=== PATIENT | female | born 1985 | race Caucasian/White ===

== ENCOUNTER 2024-10-21 10:38 | Outpatient (CLI) | payer OTHER, SELFPAY ==
--- OUTSIDE RECORDS SUMMARY | 2024-10-21 10:46 | XMS_ITS | Encounter Summary ---
Author Organization [facility] Address 

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
--- OUTSIDE RECORDS SUMMARY | 2024-10-21 10:46 | XMS_ITS | Referral Summary ---
Author Organization [facility] Address [address] [place] [address] Care Team Providers Care Medical Engineer Name Role Phone Essence Wren MD Unavailable [phone] Mary Guillen MD Primary Care Provider Encounters Date Type Department Care Team Description 10/20/2024 Telephone [facility] Endocrinology at [address] [place] [phone] Tara Blunt LPN 10/19/2024 Telephone [facility] Medical [facility] Endocrinology at [address] [place] [phone] Keegan Gallegos MD Med Management ([place]) 10/16/2024 1:30 PM CDT Office Visit [facility] Endocrinology at [address] [place] [phone] Keegan Gallegos MD 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 10/07/2024 12:30 PM CDT Telemedicine [facility] [address] [address] Francisca Mcfarland NP Generalized anxiety disorder (Primary Dx); Class 1 obesity due to excess calories without serious comorbidity with body mass index (BMI) of 34.0 to 34.9 in adult; Attention deficit disorder (ADD) without hyperactivity 09/28/2024 Results Follow-Up [facility] [address] [facility] [address] [place] [address] Francisca Mcfarland NP Prealbumin 09/28/2024 10:40 AM CDT Lab [address] [place] [address] Low serum prealbumin 09/25/2024 Orders Only [address] [place] [address] Francisca Mcfarland NP Low serum prealbumin (Primary Dx) 09/23/2024 9:30 AM CDT Telemedicine [facility] Orthopaedic Surgery [address] [place] [address] [address] [place] [address] Low serum prealbumin [R79.89] (Primary Dx); Class 1 obesity due to excess calories without serious comorbidity with body mass index (BMI) of 34.0 to 34.9 in adult [E66.811, E66.09, Z68.34] 09/18/2024 Orders Only [place] [id number] [facility] [address] [place] [address] Francisca Mcfarland NP Low serum prealbumin (Primary Dx); Class 2 obesity due to excess calories without serious comorbidity with body mass index (BMI) of 35.0 to 35.9 in adult 09/17/2024 Results Follow-Up [place] [id number] [facility] [address] [place] [address] Francisca Mcfarland NP Prealbumin, T4, free, T3, free, TSH 09/17/2024 1:50 PM CDT Lab [address] [place] [address] Low serum prealbumin; Acquired hypothyroidism 09/15/2024 Orders Only [facility] [address] [facility] [address] [place] [address] Francisca Mcfarland NP Low serum prealbumin (Primary Dx) 09/15/20[address] Orders Only [address] [place] [address] Francisca Mcfarland NP 09/02/2024 Results Follow-Up [address] [place] [address] Francisca Mcfarland NP Prealbumin, T4, free, TSH, T3, free 09/02/[address] [place] [address] Francisca Mcfarland NP Acquired hypothyroidism (Primary Dx) 08/31/2024 3:10 PM CDT Lab [address] [place] [address] Low serum prealbumin; Hypothyroidism, unspecified type 08/28/[address] [place] [address] Francisca Mcfarland NP Low serum prealbumin (Primary Dx) 08/23/2024 Results Follow-Up [address] [phone] Mary Guillen MD Stress Treadmill Test 08/21/2024 Results Follow-Up [address] [place] [address] Mary Guillen MD Vitamin B12, Ferritin, Iron profile w/ IBC, Additional followed-up results: 6 08/21/2024 11:15 AM CDT Lab [address] [place] [address] Vitamin B12 deficiency; Vitamin D deficiency; Preoperative clearance 08/21/2024 Orders Only [place] [id number] [facility] [address] [place] [address] Francisca Mcfarland NP Preoperative clearance (Primary Dx); Vitamin D deficiency; Vitamin B12 deficiency 08/21/2024 11:30 AM CDT Ancillary Procedure [facility] Cardiology [address] [facility] [address] [place] [address] Other chest pain 08/20/2024 Telephone [place] [id number] [facility] [address] [place] [phone] Mary Guillen MD FLMA 08/17/2024 3:00 PM CDT Office Visit [place] [id number] [facility] [address] [place] [address] Francisca Mcfarland NP Other chest pain (Primary Dx); Acquired hypothyroidism; Class 2 obesity due to excess calories without serious comorbidity with body mass index (BMI) of 35.0 to 35.9 in adult; H/O gastric sleeve 08/13/2024 Nurse Triage [place] [id number] [facility] [address] [place] [phone] Mary Guillen MD from Last 3 Months Allergies Active Allergy Reactions Criticality Noted Date Comments Azithromycin Rash Medium 01/14/2015 Codeine Other (See comments) Low 10/10/2009 Reaction: Insomnia, , Reaction: Insomnia, Hyperactive,couldnt sleep Causes insomnia and hyperactivity Latex Rash Medium 08/28/2011 Itchy , bumps , , swollen tongue Only to certain tapes Vancomycin Hives High 07/09/2016 Medications albuterol HFA (Ventolin HFA) 90 mcg/actuation inhalerIndication s:Moderate asthma, unspecified whether complicated, unspecified whether persistent Inhale 2 puffs every 4 (four) hours as needed for wheezing or shortness of breath 1 each 2 022 Active Additional Information Patient not taking.Reported on 02/14/2024 lisdexamfetamine (VYVANSE) 50 mg capsule Take 1 capsule (50 mg total) by mouth every morning 30 capsule 025 Active hydrOXYzine (ATARAX) 25 mg tablet Take 1 tablet (25 mg total) by mouth 2 (two) times a day as needed for itching 30 tablet 025 Active Synthroid 137 mcg tabletIndications :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 Take 1 tablet (137 mcg total) by mouth daily 30 tablet 6 025 Active Zepbound 15 mg/0.5 mL pen injector ADMINISTER 15 MG UNDER THE SKIN EVERY 7 DAYS 2 mL 025 Active levothyroxine (SYNTHROID) 125 mcg tabletIndications :Acquired hypothyroidism Take 1 tablet (125 mcg total) 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 Recent TFTs showed elevated TSH of 4.9 with normal free T3 and free T4. She is on levothyroxine 125 mcg daily. Plan 1. Will change levothyroxine to Synthroid 137 mcg daily 2. TSH in 2 months 3. Discussed TSH goal of 0.3-2.5. 4. Discussed medication adherence and absorption issues.Advised taking Synthroid three hours after the last meal or first thing in the morning, avoiding concurrent intake with calcium, multivitamins, or iron. 5. Advised to call ASP 6. All her questions were addressed. 7. Follow-up in 6 months Other chest pain 08/17/2024 Assessment & Plan (08/17/2024 8:58 PM CDT): She experiences intermittent left-sided chest pain, initially sharp with swallowing and now dull with deep breathing. There is no exertional pain, palpitations, or dyspnea. The differential diagnosis includes acid reflux, pleurisy, cardiac issues, and muscular pain. Acid reflux is considered due to Zepbound use, despite atypical symptoms. Pleurisy is unlikely without a recent viral infection. Cardiac issues are considered due to family history but are low risk without exertional symptoms. Muscular pain is considered due to recent back pain and a popping sensation. An EKG will be ordered to rule out cardiac issues. EKG shows no acute findings. Will get Stress test given also going for surgery in August possibly. recommend [id number] famotidine (Pepcid) for two weeks for potential acid reflux. Consider a muscular origin if symptoms persist despite ERRONEOUS ENCOUNTER--DISREGARD 05/25/2024 Severe episode of recurrent major depressive disorder, without psychotic features 07/10/2022 Assessment & Plan (02/07/2023 8:29 AM CDT): Doing much better with this as she has changed jobs Assessment & Plan (07/10/2022 3:12 PM CHIEF EXECUTIVE OFFICER): We discussed this at length. We encouraged her significantly to start therapy. She is an upcoming appointment in 2 weeks. Discussed to follow therapy at least once or twice a week. Discussed the role of medications and improving the serotonin and dopamine. Discussed using sertraline 25 mg a day with weekly follow-ups with us through [facility] about her progress. Discussed any worsening symptoms do notify us as soon as possible. Follow-up with us in 1 month. Recommend intermittent FMLA to meet with our appointments as well as the appointments with the therapist. Highly recommend in person visits at this current time. Routine physical examination 05/08/2022 Assessment & Plan (05/08/2022 3:34 PM CHIEF EXECUTIVE OFFICER): Discussed vaccinations. Discussed diet and exercise changes. Complimented her on exercising at least 3 times a week. She is currently . Attention deficit disorder (ADD) without hyperac tivity 05/08/2022 Assessment & Plan (10/07/2024 9:12 PM CDT): Doing well on vyvanse Assessment & Plan (05/27/2024 3:23 PM CHIEF EXECUTIVE OFFICER): Has been doing well on Vyvanse. Would continue the same dosage. Assessment & Plan (01/29/2024 2:58 PM CDT): Has done well on Vyvanse 50 mg. States has noticed little bit of numbness and tingling on the face at times after she takes it. The symptoms lasted a few seconds and does resolve. States otherwise tolerating it well. States has been having trouble with sleeping at night. Has been using melatonin. Continue Vyvanse at this time. Neuro exam is stable. Start with blood work. If the symptoms worsen or persist to notify. Assessment & Plan (01/03/2024 1:30 PM CDT): Has done well on Vyvanse 50 mg. States stopped taking it for a little while as she was getting frustrated with the inability to locate the medication daily. States has noticed significant difference when she does not take the medication. We would like to resume it. Close follow-up in 3 months. Assessment & Plan (04/03/2023 9:18 PM CHIEF EXECUTIVE OFFICER): Currently on Vyvanse 50 mg daily. Has been tolerating it well. We discussed make an appointment in the office in next couple of months for follow-up. Needs a blood pressure check. Assessment & Plan (02/07/2023 8:32 AM CDT): We d/w vyvanse and start at 30 mg a day We d.w not to consider with these meds Assessment & Plan (05/08/2022 3:36 PM CHIEF EXECUTIVE OFFICER): Predominantly poor focus. Definitely scored high on the ADD screen. Lot of anxiety by the end of the day and unable to finish tasks noted which is adding to her anxiety and low self-esteem. Discussed working with a counselor but also discussed considering ADD medicines once she is done before we pursue medications for anxiety and depression. Would recommend finding out the medicine her brother is on as well. H/O gastric sleeve 05/16/2021 Overview (05/16/2021): -2018 Assessment & Plan (01/29/2024 2:56 PM CDT): We will start with blood work and getting vitamin B12 level. She was currently was started on zepbound has losing weight Assessment & Plan (04/03/2023 9:19 PM CHIEF EXECUTIVE OFFICER): Continue with vitamins continue with weight loss efforts Assessment & Plan (02/07/2023 8:31 AM CDT): Unfortunately gained weight and we d.w wegovy and use of wegovy for weight management Assessment & Plan (05/08/2022 3:35 PM CHIEF EXECUTIVE OFFICER): She has lost about 100 lb from her procedure time. Does notice some redundant skin on the arms and also abdomen. Anxiety with depression 03/08/2021 Overview (05/16/2021): -no meds Assessment & Plan (01/03/2024 1:31 PM CDT): Currently not on any medication. She does report that her mood has overall been stable. History of PCOS 03/08/2021 Overview (05/16/2021): -stopped metformin -Early GCT at 16wks Assessment & Plan (05/08/2022 3:35 PM CHIEF EXECUTIVE OFFICER): Would actually recommend checking insulin levels. Dysthymia 08/26/2020 Assessment & Plan (08/26/2020 6:51 AM CDT): JUANITA and depression are likely barriers to change. She is not living with the father of her child and is simultaneously trying to conceive. She has tried multiple medications in the past but notes that she has never been consistent with any of them. Counseling advised. Will continue to discuss starting medication in the future, but for now restarting her thyroid medications is of the utmost priority. Fatigue 08/26/2020 Polycystic ovarian syndrome 08/26/2020 Assessment & Plan (01/29/2024 2:57 PM CDT): Continue metformin and zepbound Assessment & Plan (01/03/2024 1:30 PM CDT): Continue metformin. Will also be starting zepbound. Assessment & Plan (02/07/2023 8:30 AM CDT): Currently not taking metformin and we d.w holding it off and as she is not trying to conceive we are going to hold the metformin Assessment & Plan (03/08/2021 4:59 PM CDT): Restart metformin and will continue to focus on weight loss/ diet/ exercise. Assessment & Plan (08/26/2020 6:50 AM CDT): Discussed important of dietary and lifestyle modification to mitigate extent of symptoms related to this condition. While this certainly makes it more difficult to lose weight, there are multiple changes that can be made, and this includes a drastic change in routines and priorities. We discussed that this would likely improve her chances to conceive again if that is her goal. Continue metformin. Class 2 obesity due to exces s calories without serious comorbidity with body mass index (BMI) of 35.0 to 35.9 in adult 08/26/2020 Overview (02/09/2022): -Early GCT -Growth US at 28wks--if normal then 36wks -NST weekly at 34wks Assessment & Plan (10/07/2024 9:13 PM CDT): BMI follow up includes: nutritional counseling and exercise as tolerated. Assessment & Plan (08/26/2024 2:28 PM CDT): Currently on zepbound. Doing very well on the medication. Has lost over 50 lb. Due to the weight loss has noticed some loose skin. Being followed by surgeon. Plan is for surgery Continue current dosage. Continue with diet and exercise Assessment & Plan (05/27/2024 3:23 PM CHIEF EXECUTIVE OFFICER): Currently on zepbound. Doing very well on the medication. Continue current dosage. Continue with diet and exercise. Assessment & Plan (01/29/2024 2:57 PM CDT): Congratulated on weight loss. Has been losing weight on zepbound 2.5 mg. States will be starting the higher dose of 5 mg this week. We discussed continuing metformin at this time. Continue working on diet and exercise. Assessment & Plan (01/03/2024 1:29 PM CDT): We discussed this in detail. She will be starting up on 2.5 mg once a week. Side effects of the medication reviewed. Discussed that every 4 weeks we would titrate the dosage up. She verbalizes understanding. We discussed importance of diet and exercise. Continue metformin at this time. I would like for her to check it in 3 months with how she is doing on the medication. She verbalizes understanding. Assessment & Plan (04/03/2023 9:18 PM CHIEF EXECUTIVE OFFICER): Has been taking once a week. Has been tolerating it well. Being followed by weight loss clinic. States would like to try Mounjaro that is recently weight loss. Discussed I do not believe the prescription is available have overall sending it to the pharmacy to see if available. At this time would recommend continuing Wegovy 0.5 mg once a week. I encouraged her to make an appointment in couple months for follow-up in the office Assessment & Plan (02/07/2023 8:27 AM CDT): Has done s/p gastric sleeve .BMI Follow-up includes: nutrition counseling. We d/w wegovy and we d.w pros and cons Assessment & Plan (07/10/2022 3:12 PM CHIEF EXECUTIVE OFFICER): .BMI Follow-up includes: nutrition counseling. Assessment & Plan (05/08/2022 3:34 PM CHIEF EXECUTIVE OFFICER): BMI discussed she is post gastric sleeve done in 2018 would be a good candidate for semaglutide but at this current time would start with metformin and dietary changes. Will wait on; diet at this current time. Assessment & Plan (08/26/2020 6:49 AM CDT): Multiple barriers to change were addressed. We will start with phentermine/ topiramate, however a shift in lifestyle is essential. Generalized anxiety disorder 01/26/2019 Assessment & Plan (10/07/2024 9:11 PM CDT): We discussed this is in detail. She is conflicted about the medication. States she did discuss with her brother regards to the medication he is on. States she believes that he has been on wellbutrin and xanax as needed. However she does not want put pursue medication. Did discuss with pt that based on our discussion today I do feel she would benefit from SSRI to help with anxiety. Wellbutrin can worsen anxiety at higher dose. Do not necessiarly recommend xanax at this time. Did discuss we can try hydroxyzine as needed. She is in agreement with hydroxyzine as needed. She will let me know about which medication her brother is on after discussing with him again and let me know. She is also concerned that due to her anxiety she has been struggling at work as well. She states she will seek to see psychologist. Again it was emphasized that she would benefit from starting medicatio. She will consider and let me know. Assessment & Plan (01/26/2019 3:27 AM CDT): -Anxiety is worsening -JUANITA-7 score: 13 -Start celexa -Counseled on anxiety reduction strategies including exercise, reducing caffeine intake,journal writing, leisure activities, yoga, deep breathing and music. Fu in 3-4 weeks S/P section 06/28/2016 Overview (02/09/2022): -2018 for AOD at 4cm after IOL -Desires repeat at 39wks Spotting affecting in first trimester 12/16/2015 Abnormal Pap smear of cervix 02/08/2015 Overview (02/09/2022): 12/2014: LGSIL 01/2015: ALICE 1 11/2015: LGSIL Elevated fasting insulin level with normal gluco se 10/27/2014 Resolved Problems Problem Noted Date Diagnosed Date Resolved Date with 39 completed weeks gestation 11/27/2021 05/08/2022 History of wound infection 05/16/2021 1 07/09/2021 Overview (05/16/2021): -dx with chorio during delivery--received triples -presented POD#6 after with wound drainage, fevers and leukocytosis. Zosyn-->vanc (Hives)-->clindamycin-->d/c home with keflex and flagyl -Plan for scheduled repeat at 39wks Mild persistent asthma with exacerbation 03/04/2019 05/16/2021 Assessment & Plan (03/04/2019 4:34 AM CDT): Asthma exacerbation Triggered by sinus infection Start prednisone and continue albuterol If symptoms worsen or fail to improve recommend follow up in office. Maxillary sinusitis 03/04/2019 08/27/19 21 Assessment & Plan (03/04/2019 4:35 AM CDT): Sinus symptoms > 1 week with purulent drainage Likely bacterial Start Augmentin If symptoms worsen or fail to improve recommend follow up in office. Current moderate episode of major depressive disorder without prior episode 01/26/2019 Assessment & Plan (01/26/2019 3:27 AM CDT): -Depression is worsening PHQ9 :12 -Start celexa -Discussed depression reducing techniques including exercise, eating healthy, relaxation, leisure activities, aim for 8 hours of sleep, challenge negative thinking, yoga. I spent a total of 60 Minutes with the patient with more than 50% of the visit spent counseling patient on depression and anxiety management, treatment options for depression anxiety, benefits and side effects of medication, benefits of therapy, importance of incorporating self-care regimen into routine, answered questions, suicide precautions, coordinating care. Anxiety 01/26/2019 05/16/2021 Overview (05/16/2021): -no meds BMI 39.0-39.9,adult 01/26/2019 03/08/20 Assessment & Plan (01/26/2019 3:29 AM CDT): BMI not improving. Reinforced concepts of healthy dietary habits and exercise at least 30 minutes 5 days a week. Sensory deficit, right 01/07/201905/08 Post-op pain 08/20/2017 05/08/2022 Post-operative nausea and vomiting 08/20/2017 05/08/2022 Eczema 08/19/2017 05/08/2022 , supervision, high-risk 11/25/2015 05/08/2022 Overview (02/09/2022): Morbid obesity Hypothyroidism PCOS (metformin) Acquired hypothyroidism 10/03/201309/19 Overview (02/09/2022): -08/2020- TSH 27, T4 0.8--armour thyroid -03/2021- TSH 11, T4 1.1--switched to synthroid 50mcg daily -repeat TSH q month Assessment & Plan (08/17/2024 8:59 PM CDT): Her thyroid disorder is managed with levothyroxine. She reports poor adherence to her medication regimen and plans to improve adherence before her upcoming endocrinology appointment. Refill the levothyroxine prescription and advise regular medication adherence, especially before the endocrinology appointment. Assessment & Plan (01/29/2024 2:56 PM CDT): Continue levothyroxine. Repeat TSH. Assessment & Plan (01/03/2024 1:30 PM CDT): Continue levothyroxine Assessment & Plan (02/07/2023 8:32 AM CDT): Cont levothyroxine Assessment & Plan (05/08/2022 3:35 PM CHIEF EXECUTIVE OFFICER): Last thyroid up testing was done in March and doses has been increased to 150 mcg of levothyroxine would repeat blood work in another 8 weeks along with antibodies to rule out Graves disease. Discussed importance of taking the medicine on an empty stomach Assessment & Plan (03/08/2021 4:57 PM CDT): TSH was over 27 earlier this year, and she was switched to armour, which was helpful to reduce hair loss, but she has not taken it consistently for several months and has not had any follow up. We discussed today the importance of taking this daily, and I have placed an order for thyroid labwork for her to recheck in 4-6 weeks. Assessment & Plan (08/26/2020 6:47 AM CDT): I am particularly concerned about her noncompliance with medications, particularly since she has already had bariatric surgery and now is gaining weight, however she desires to become as well. Checking thyroid levels today, and we will restart thyroid meds. She is interested in trying armour instead of levothyroxine, and I am amenable to this. Assessment & Plan (01/26/2019 3:28 AM CDT): Currently stable and aymptomatic without any evidence of endocrine related symptoms. No adjustments need made and will continue levothyroxine at current dose. Thyroid studies reviewed and do not need to be repeated at this time. Will continue to monitor closely. Asthma 10/03/2013 05/08/2022 Overview (05/16/2021): -albuterol as needed -well controlled Assessment & Plan (08/26/2020 6:52 AM CDT): Stable. Uses albuterol PRN Biliary colic 08/30/2011 05/08/2022 Immunizations Immunization Administration Dates Next Due Hep B, Adolescent or Pediatric 01/03/2000,1999 Influenza, Quadrivalent, Spl it, Preservative Free, Intramuscular 07/30/2016,02/03/2016,04/01/2015 Influenza, Trivalent, IM (MDV) 02/17/2018,2016 Influenza, Unspecified 04/01/2023(Deferr ed: Patient Refused),02/17/2023(Deferred: Patient Refused),02/18/2020,02/17/2019, 018 MMR 12/10/2014,11/10/2014 PPD TEST 11/10/2014,10/26/2014 Tdap 09/25/2021,10/18/2009 Varicella 12/10/2014,11/10/2014 Varicella Zoster Immune Globulin 11/10/2014 Social History Tobacco Use Types Packs/Day Years Used Date Smoking Tobacco: Never Smokeless Tobacco: Never Alcohol Use Standard Drinks/Week Comments No 0 (1 standard drink = 0.6 oz pur e alcohol) AUDIT-C Answer Date Recorded Q1: How often do you have a drink containing alc ohol? Never 01/03/2024 Average Number of Drinks Not on file 024 Frequency of Binge Drinking Not on file 12/18 PHQ-2 Answer Date Recorded PHQ-2 Total Score (If total score is 3 or more points, staff should administer the PHQ-9) 0 10/16/2024 Bruneau Depression Scale Answer Date Recorded Br[place] Depression Scale Total 2 11/29/2021 The thought of harming myself has occurred to me . Never 11/29/2021 Comments No Sex and Gender Information Value Date Recorded Sex Assigned at Not on file Legal Sex Female 11:39 PM CHIEF EXECUTIVE OFFICER Gender Identity Female 03/08/2021 3:50 PM CDT Sexual Orientation Straight 03/08/2021 3: 50 PM CDT Last Filed Vital Signs Vital Sign Reading Time Taken Comments Blood Pressure 112/70 10/16/2024 1:17 PM CDT Pulse 72 10/16/2024 1:17 PM CDT Temperature 36.7 C (98 F) 10/16/2024 1:17 PM CDT Respiratory Rate 14 10/16/2024 1:17 PM CDT Oxygen Saturation 98% 08/17/2024 3:07 PM CDT Inhaled Oxygen Concentration - - Weight 94.8 kg (209 lb) 10/16/2024 1:17 PM CDT Height 165 cm (5' 4.96) 10/16/2024 1:17 PM CDT Body Mass Index 34.82 10/16/2024 1:17 PM CDT Plan of Treatment Not on file Medical Devices Implanted Type Area Energy Director Device Identifier Shelf Expiration Date Model / Serial / Lot ChangeMob Seprafilm 6x5in Barrier Adhesion Sterile Disposable Latex Free [id number] - [id number] Implanted:Qty: 1 on 11/27/2021 by Essence Wren MD at [facility] N/A: Abdomen SchraderPownce Gera [id number] 01/20/2024 [id number] / / [id number] Procedures Procedure Name Priority Date/Time Associated Diagnosis Comments PREALBUMIN Routine 09/28/2024 10:43 AM CDT Low serum prealbumin TSH Routine 09/17/2024 1:53 PM CDT Acquired hypothyroidism T3, FREE Routine 09/17/2024 1:53 PM CDT Acquired hypothyroidism T4, FREE Routine 09/17/2024 1:53 PM CDT Acquired hypothyroidism PREALBUMIN Routine 09/17/2024 1:53 PM CDT Low serum prealbumin T3, FREE Routine 08/31/2024 3:10 PM CDT Low serum prealbumin TSH Routine 08/31/2024 3:10 PM CDT Low serum prealbumin T4, FREE Routine 08/31/2024 3:10 PM CDT Low serum prealbumin PREALBUMIN Routine 08/31/2024 3:10 PM CDT Low serum prealbumin STRESS TEST ONLY TREADMILL Routine 08/21/2024 12:15 PM CDT Other chest pain EGFR Routine 08/21/2024 11:19 AM CDT Preoperative clearance DIFFERENTIAL AUTO Routine 08/21/2024 11: 19 AM CDT Preoperative clearance CBC WITH AUTO DIFFERENTIAL Routine 08/21/2024 11:19 AM CDT Preoperative clearance COMPREHENSIVE METABOLIC PANEL Routine 08/21/2024 11:19 AM CDT Preoperative clearance PREALBUMIN Routine 08/21/2024 11:19 AM CDT Preoperative clearance VITAMIN D 25 HYDROXY Routine 08/21/2024 11:19 AM CDT Vitamin D deficiency IRON PROFILE W/ IBC Routine 08/21/2024 1 1:19 AM CDT Vitamin B12 deficiency FERRITIN Routine 08/21/2024 11:19 AM CDT Vitamin B12 deficiency VITAMIN B12 Routine 08/21/2024 11:19 AM CDT Vitamin B12 deficiency ECG 12-LEAD Routine 08/17/2024 9:00 PM CDT Other chest pain HIGH RISK HPV DNA DETECTION WITH GENOTYPING Routine 01/23/2023 9:48 AM CDT Encounter for well woman exam with routine gynecological exam HEPATITIS C ANTIBODY Routine 05/17/2021 12:21 PM CHIEF EXECUTIVE OFFICER care, subsequent in first trimester from Last 3 Months or Most Recently Relevant to Health Maintenance Results * (ABNORMAL) Prealbumin (09/28/2024 10:43 AM CDT) Prealbumin 13.9(L) 20.0 - 40.0 mg/dL Blood 09/28/2024 10:4 3 AM CDT 09/28/2024 1:56 PM CDT us Francisca Mcfarland NP LAB BLOOD ORDERABLES Final Re sult [facility] [address] [place] [address] * T3, free (09/17/2024 1:53 PM CDT) Pathologist [facility] Free T3 2.8 2.0 - 4.4 pg/mL Blood 09/17/2024 1:53 PM CDT 09/17/2024 3:55 PM CDT Francisca Mcfarland NP LAB BLOOD ORDERABLES Final Re sult Performing Organization Address [facility] Co de Phone Number [facility] [address] [facility] [place] [address] * (ABNORMAL) TSH (09/17/2024 1:53 PM CDT) [facility] Thyroid Stimulating Hormone 4.96(H) 0.30 - 4.20 mcIUnit/mL Blood 09/17/2024 1:53 PM CDT 09/17/2024 3:55 PM CDT Francisca Mcfarland NP LAB BLOOD ORDERABLES Final Re sult Performing Organization Address [facility] Co de Phone Number [facility] [address] [facility] [employer] [place], [place] [id number] * T4, free (09/17/2024 1:53 PM CDT) [facility] Free T4 1.29 0.90 - 1.70 ng/dL Blood 09/17/2024 1:53 PM CDT 09/17/2024 3:55 PM CDT Francisca Mcfarland NP LAB BLOOD ORDERABLES Final Re sult Performing Organization Address [facility] Co de Phone Number [facility] [address] [facility] [place] [address] * (ABNORMAL) Prealbumin (09/17/2024 1:53 PM CDT) [facility] Prealbumin 13.4(L) 20.0 - 40.0 mg/dL Blood 09/17/2024 1:53 PM CDT 09/17/2024 3:55 PM CDT Francisca Mcfarland NP LAB BLOOD ORDERABLES Final Re sult Performing Organization Address City/[facility]/ZIP Co de Phone Number [facility] [address] [facility] [place] [address] * T3, free (08/31/2024 3:10 PM CDT) Pathologist [facility] Free T3 2.9 2.0 - 4.4 pg/mL Blood 08/31/2024 3:10 PM CDT 08/31/2024 6:56 PM CDT Francisca Mcfarland NP LAB BLOOD ORDERABLES Final Re sult Performing Organization Address [facility] Co de Phone Number [facility] [address] [facility] [place] [address] * TSH (08/31/2024 3:10 PM CDT) Pathologist [facility] Thyroid Stimulating Hormone 3.99 0.30 - 4.20 mcIUnit/mL Blood 08/31/2024 3:10 PM CDT 08/31/2024 6:56 PM CDT Francisca Mcfarland NP LAB BLOOD ORDERABLES Final Re sult Performing Organization Address [facility] Co de Phone Number [facility] [address] [facility] [place] [address] * T4, free (08/31/2024 3:10 PM CDT) Pathologist [facility] Free T4 1.18 0.90 - 1.70 ng/dL Blood 08/31/2024 3:10 PM CDT 08/31/2024 6:56 PM CDT Francisca Mcfarland GREEN ENERGY MARKETING ANALYST LAB BLOOD ORDERABLES Final Re sult Performing Organization Address [facility] Co de Phone Number [facility] [address] [facility] [place] [address] * (ABNORMAL) Prealbumin (08/31/2024 3:10 PM CDT) Prealbumin 10.8(L) 20.0 - 40.0 mg/dL Blood 08/31/2024 3:10 PM CDT 08/31/2024 6:56 PM CDT Francisca Mcfarland GREEN ENERGY MARKETING ANALYST LAB BLOOD ORDERABLES Final Re sult Performing Organization Address [facility] de Phone Number DRE [facility] [address] [facility] [place] [address] * Stress Treadmill Test (08/21/2024 12:15 PM CDT) Anatomical Region Laterality Modality Nuclear Medicine 08/21/2024 11:3 0 AM CDT Narrative 08/22/2024 1:33 PM CDT EXERCISE STRESS Patient Name: MELL NOBLES L : 1985 Study Date: 08/21/2024 11:30:00 AM Gender: F Tech: Brian Simmons RN Ref Provider: FRANCISCA MCFARLAND Height(Cm): 165 BSA: 2.11 Weight(Kg): 97 Order Provider: FRANCISCA MCFARLAND PROCEDURES: Stress Report: Treadmill stress Exam. INDICATIONS: R07.89 Other chest pain. FINDINGS: Performed By: Brian Simmons RN. Krista Ruiz [facility]. Procedure Data: Protocol - Dany Protocol. Exercise Time: 08:57 Resting HR 96 bpm Peak HR: 190 bpm Predicted Maximal HR 184 bpm Target HR: 156 bpm Percent Max Predicted HR Achieved: 103 % Baseline BP: 117/85 Peak BP: 134/71 METS achieved: 10.3 Rate-Pressure Product: 85255 BPM*mmHg Max ST: Angina Index (0=No angina during exercise, 1=non-limiting angina, 2=exercise limited angina): 1 Supervising Physician: The Supervising Physician is STUART. Resting ECG: Sinus Tachycardia. Nonspecific T-wave flattening. Post ECG: No diagnostic ST changes. Arrhythmia: No arrhythmias seen. Exercise Capacity: Average exercise capacity for age. Cardiac Symptoms With Stress: Symptoms with stress were Chest pain and dyspnea. Symptoms were resolved with rest. Target HR Achieved: Target heart rate was achieved. Reason For Termination: Fatigue. Dyspnea. THR achieved. BP Response: Blood pressure response is flat. CONCLUSIONS: 1. Maximal exercise ECG that is negative for ischemia. 2. No arrhythmias seen. 3. Blood pressure response is flat. 4. Average exercise capacity for age. Electronically Signed By: Kelton Cadet MD [facility] 08/22/2024 1:27:04 PM CDT Procedure Note Kelton Cadet MD - 08/22/2024 EXERCISE STRESS Patient Name: MELL NOBLES L : 1985 Study Date: 08/21/2024 11:30:00 AM Gender: F Tech: Brian Simmons RN Ref Provider: FRANCISCA MCFARLAND Height(Cm): 165 BSA: 2.11 Weight(Kg): 97 Order Provider: FRANCISCA MCFARLAND PROCEDURES: Stress Report: Treadmill stress Exam. INDICATIONS: R07.89 Other chest pain. FINDINGS: Performed By: Brian Simmons RN. Krista Ruiz [facility]. Procedure Data: Protocol - Dany Protocol. Exercise Time: 08:57 Resting HR 96 bpm Peak HR: 190 bpm Predicted Maximal HR 184 bpm Target HR: 156 bpm Percent Max Predicted HR Achieved: 103 % Baseline BP: 117/85 Peak BP: 134/71 METS achieved: 10.3 Rate-Pressure Product: 68518 BPM*mmHg Max ST: Angina Index (0=No angina during exercise, 1=non-limiting angina,2=exercise limited angina): 1 Supervising Physician: The Supervising Physician is STUART. Resting ECG: Sinus Tachycardia. Nonspecific T-wave flattening. Post ECG: No diagnostic ST changes. Arrhythmia: No arrhythmias seen. Exercise Capacity: Average exercise capacity for age. Cardiac Symptoms With Stress: Symptoms with stress were Chest pain and dyspnea. Symptoms were resolvedwith rest. Target HR Achieved: Target heart rate was achieved. Reason For Termination: Fatigue. Dyspnea. THR achieved. BP Response: Blood pressure response is flat. CONCLUSIONS: 1. Maximal exercise ECG that is negative for ischemia. 2. No arrhythmias seen. 3. Blood pressure response is flat. 4. Average exercise capacity for age. Electronically Signed By: Kelton Cadet MD [facility] 08/22/2024 1:27:04 PM CDT Francisca Mcfarland NP CV STRESS PROCEDURES Final Re sult * eGFR (08/21/2024 11:19 AM CDT) eGFR >90 >=60 mL/min/1. 73 m2 Comment: Interpretive Data Reference Interval Normal >/= 90 mL/min/1.73m2 Mildly decreased* 60 - 89 mL/min/1.73m2 Mildly to moderately decreased 45 - 59 mL/min/1.73m2 Moderately to severely decreased 30 - 44 mL/min/1.73m2 Severely decreased 15 - 29 mL/min/1.73m2 Kidney Failure < 15 mL/min/1.73m2 *Relative to young adult level Estimated glomerular filtration rate is determined by the 2020 CKD-EPI equation recommended by the National Kidney Foundation (A Unifying Approach to GFR Estimation: Recommendations of the NKF-ASK Task Force on Reassessing the Inclusion of Race in Diagnosing Kidney Disease, JASN 2020). The CKD-EPI equation should not be used for patients with unstable renal function and has not been validated in children and those over 70. Current interpretive data was last reviewed 2021. Blood 08/21/2024 11:1 9 AM CDT 08/21/2024 2:31 PM CDT Francisca Mcfarland NP LAB BLOOD ORDERABLES Final Re sult [facility] [address] [place] [address] * Differential, auto (08/21/2024 11:19 AM CDT) Neutrophil abs 5.75 1.50 - 6.50 K/cumm Imm gran abs 0.01 0.00 - 0.10 K/cumm [facility] Lymphocyte abs 1.55 0.80 - 3.30 K/cumm [facility] Monocyte abs 0.66 0.20 - 0.80 K/cumm [facility] Eosinophil abs 0.03 0.00 - 0.50 K/cumm [facility] Basophil abs 0.07 0.00 - 0.10 K/cumm [facility] Neutrophil pct 71.2 % [facility] Comment: Interpretive Data Percent cell count reference ranges are not reported, since discordance with absolute values may lead to misinterpretation of CBC data. Current Interpretive Data was last revised on 2017. Imm gran pct 0.1 % [facility] Comment: Interpretive Data Percent cell count reference ranges are not reported, since discordance with absolute values may lead to misinterpretation of CBC data. Current Interpretive Data was last revised on 2017. Lymphocyte pct 19.2 % [facility] Comment: Interpretive Data Percent cell count reference ranges are not reported, since discordance with absolute values may lead to misinterpretation of CBC data. Current Interpretive Data was last revised on 2017. Monocyte pct 8.2 % [facility] Comment: Interpretive Data Percent cell count reference ranges are not reported, since discordance with absolute values may lead to misinterpretation of CBC data. Current Interpretive Data was last revised on 2017. Eosinophil pct 0.4 % [facility] Comment: Interpretive Data Percent cell count reference ranges are not reported, since discordance with absolute values may lead to misinterpretation of CBC data. Current Interpretive Data was last revised on 2017. Basophil pct 0.9 % [facility] Comment: Interpretive Data Percent cell count reference ranges are not reported, since discordance with absolute values may lead to misinterpretation of CBC data. Current Interpretive Data was last revised on 2017. Blood 08/21/2024 11:1 9 AM CDT 08/21/2024 1:50 PM CDT Francisca Mcfarland NP LAB BLOOD ORDERABLES Final Re sult Performing Organization Address [facility]/ZIP Co de Phone Number [facility] [address] [place] [address] * Iron profile w/ IBC (08/21/2024 11:19 AM CDT) Pathologist [facility] Iron 89 35 - 145 mcg/dL TIBC 290 250 - 400 mcg/dL [facility] Transferrin saturation 31 20 - 50 % [facility] Blood 08/21/2024 11:1 9 AM CDT 08/21/2024 2:31 PM CDT Francisca Mcfarland NP LAB BLOOD ORDERABLES Final Re sult [facility] [address] [place] [address] * CBC with auto differential (08/21/2024 11:19 AM CDT) WBC 8.07 3.80 - 9.90 K/cumm Hgb 13.3 11.9 - 15.5 g/dL [facility] Hct 40.8 35.6 - 45.5 % [facility] Plt 391 150 - 400 K/cumm [facility] MPV 10.3 9.1 - 12.3 fL [facility] RBC 4.50 3.90 - 5.20 M/cumm [facility] MCV 90.7 81.3 - 96.4 fL [facility] MCH 29.6 27.1 - 33.3 pg [facility] MCHC 32.6 32.3 - 35.7 g/dL [facility] RDW CV 13.2 11.1 - 14.9 % [facility] RDW SD 43.6 35.7 - 48.1 fL [facility] NRBC abs 0.00 0.00 - 0.01 K/cumm [facility] Blood 08/21/2024 11:1 9 AM CDT 08/21/2024 1:50 PM CDT Francisca Mcfarladn NP LAB BLOOD ORDERABLES Final Re sult Performing Organization Address City/[facility]/ZIP Co de Phone Number [facility] [address] [facility] [employer] [place], [place] [id number] * (ABNORMAL) Vitamin D 25 hydroxy (08/21/2024 11:19 AM CDT) Pathologist [facility] Vitamin D 25-OH 28(L) 30 - 80 ng/mL Blood 08/21/2024 11:1 9 AM CDT 08/21/2024 2:31 PM CDT Francisca Mcfarland NP LAB BLOOD ORDERABLES Final Re sult [facility] [address] [facility] [employer] [place], [place] [id number] * (ABNORMAL) Prealbumin (08/21/2024 11:19 AM CDT) Pathologist [facility] Prealbumin 11.9(L) 20.0 - 40.0 mg/dL Blood 08/21/2024 11:1 9 AM CDT 08/21/2024 2:31 PM CDT Francisca Mcfarland GREEN ENERGY MARKETING ANALYST LAB BLOOD ORDERABLES Final Re sult Performing Organization Address City/[facility]/ZIP Co de Phone Number DRE [facility] [address] [facility] [place] [address] * Ferritin (08/21/2024 11:19 AM CDT) Pathologist [facility] Ferritin 37 15 - 150 ng/mL Blood 08/21/2024 11:1 9 AM CDT 08/21/2024 2:31 PM CDT Francisca Mcfarland NP LAB BLOOD ORDERABLES Final Re sult Performing Organization Address [facility] Co de Phone Number [facility] [address] [facility] [place] [address] * Vitamin B12 (08/21/2024 11:19 AM CDT) [facility] Vitamin B12 375 230 - 1,250 pg/mL Blood 08/21/2024 11:1 9 AM CDT 08/21/2024 2:31 PM CDT Francisca Mcfarland NP LAB BLOOD ORDERABLES Final Re sult Performing Organization Address [facility] Co de Phone Number [facility] [address] [facility] [place] [address] * (ABNORMAL) Comprehensive metabolic panel (08/21/2024 11:19 AM CDT) [facility] Sodium 140 135 - 145 mmol/L Potassium, pl 4.0 3.3 - 4.9 mmol/L [facility] Chloride 105 97 - 110 mmol/L [facility] CO2 21(L) 22 - 32 mmol/L [facility] Anion gap 14 2 - 15 mmol/L [facility] BUN 7 6 - 25 mg/dL [facility] Creatinine 0.71 0.60 - 1.10 mg/dL [facility] Glucose 90 70 - 199 mg/dL [facility] Comment: Interpretive Data Fasting glucose >/= 126 mg/dl is diagnostic for diabetes. Fasting is defined as no caloric intake for at least 8 hours. Fasting glucose between 100 mg/dl to 125 mg/dl is diagnostic of prediabetes. In a patient with classic symptoms of hyperglycemia or hyperglycemic crisis, a random glucose >/= 200 mg/dl is diagnostic for diabetes. In the absence of unequivocal hyperglycemia, results should be confirmed by repeat testing. The classification and Diagnosis of Diabetes Diabetes Care 202; 46: S19-S40. Current interpretive data was last revised 2022. Calcium 9.1 8.5 - 10.3 mg/dL [facility] Bilirubin, total 0.9 0.1 - 1.2 mg/dL [facility] Protein, pl 7.1 6.5 - 8.5 g/dL [facility] Albumin 4.4 3.5 - 5.0 g/dL [facility] Alk phos 67 40 - 130 Units/L [facility] ALT 10 7 - 45 Units/L [facility] AST 16 10 - 45 Units/L [facility] Blood 08/21/2024 11:1 9 AM CDT 08/21/2024 2:31 PM CDT Francisca Mcfarland NP LAB BLOOD ORDERABLES Final Re sult [facility] [address] [place] [address] * (ABNORMAL) ECG 12-LEAD (08/17/2024 9:00 PM CDT) Narrative Francisca Mcfarland NP - 08/17/2024 9:00 PM CDT Francisca Mcfarland NP 08/17/2024 9:00 PM ECG 12 lead Date/Time: 08/17/2024 9:00 PM Performed by: Francisca Mcfarland NP Authorized by: Francisca Mcfarland NP Rhythm: sinus rhythm Rate: normal QRS axis: normal Clinical impression: abnormal ECG Comments: Consider old infarct us Francisca Mcfarland NP ECG ORDERABLES Final Result * High Risk HPV DNA Detection with Genotyping (Molecular component) (01/23/2023 9:48 AM CDT) HPV HR 16 Not Detected Not Detected [facility] HPV HR 18 Not Detected Not Detected [facility] HPV HR Non 16/18 Not Detected Not Detected [facility] Comment: Interpretive Data Nucleic acid amplification for detection of high-risk Human Papilloma virus (HPV) is performed by the Nazario Meredith 4800 HPV test, which specifically detects high-risk HPV-16, 18, 31, 33, 35, 39, 45, 51, 52, 56, 58, 59, 66, and 68 genotypes. This assay has been approved by the [place] Food and Drug Administration for detection of HPV in cervical specimens collected by a physician using an endocervical brush/spatula or cervical broom and placed in the ThinPrep Pap Test PreservCyt collection containers. The performance characteristics of this test have been verified by the [facility]. Correlate with separately reported cytology results, as applicable. Interpretive data last revised 22 Endocervical 01/23/2023 9:48 AM CDT 01/23/2023 5:18 PM CDT Narrative [facility] - 01/26/2023 7:17 PM CDT Clinical history and diagnosis->Well Woman Number of vials->1 Testing type->Screening Last menstrual period (date if known)->01/06/23 Yamila URIOSTEGUI LAB BODY FLUIDS AND STOOL S ORDERABLES Final Result [facility] [address] [place] [address] * Hepatitis C antibody (05/17/2021 12:21 PM CHIEF EXECUTIVE OFFICER) Pathologist [facility] Hep C Ab Nonreactive Nonreactive [facility] Comment: Interpretive Data Nonreactive: Antibodies to HCV not detected. Does NOT exclude the possibility of recent exposure to HCV. Equivocal: Equivocal for HCV antibodies. Supplemental molecular testing will be automatically performed to determine infection status in accordance with current CDC screening recommendations. Reactive: Positive for HCV antibodies. This may represent current or past HCV infection. Supplemental molecular testing will be automatically performed to determine current infection status in accordance with current CDC screening recommendations. Interpretive data was last revised on 2019. Testing performed by: [facility], [facility] [place], [place]., [address] Blood 05/17/2021 12:2 1 PM CHIEF EXECUTIVE OFFICER 05/17/2021 2:43 PM CHIEF EXECUTIVE OFFICER us Essence Wren MD LAB MICROBIOLOGY - GEN ERAL ORDERABLES Final Result [facility] [address] [facility]. [place] [address] from Last 3 Months or Most Recently Relevant to Health Maintenance Insurance [address] [place] [phone] [employer] Address: [facility] [address] [place] [address] [facility] [employer] [facility] HMO/PPO Address: [address] [address] [place] [address] [place] [phone] [facility] [employer] [facility] HMO/PPO Address: [address] [place] [phone] [facility] [employer] [facility] HMO/PPO Address: [address] [phone] Advance Directives For more information, please contact: [phone] * Full Code (Latest Code Status on File) Date Activated Date Inactivated Comments 11/27/2021 9:43 AM 11/29/2021 10:23 PM * Full Code Date Activated Date Inactivated Comments 11/27/2021 4:37 AM 11/27/2021 9:43 AM Full CPR in case of cardiopulmonary arrest Care Teams Medical Engineer Relationship Specialty Start Date End Date Mary Guillen MD [address] [address] PCP - General Internal Medicine 05/08/22 Essence Wren MD Consulting Physician Obstetrics and Gynecology 09/19/21
--- OUTSIDE RECORDS SUMMARY | 2024-10-21 10:46 | XMS_ITS | Encounter Summary ---
Author Organization [facility] Address 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
--- OUTSIDE RECORDS SUMMARY | 2024-10-21 10:46 | XMS_ITS | Encounter Summary ---
Author Organization [employer] Address 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
--- OUTSIDE RECORDS SUMMARY | 2024-10-21 10:46 | XMS_ITS | Encounter Summary ---
Author Organization [facility] Healthcare Address [address] [place] [address] Care Team Providers Care Consumer Safety Officer Name Role Phone Essence Wren MD Unavailable [phone] Mary Guillen MD Primary Care Provider Encounter Details Date Type Department Care Team (Late st Contact Info) Description 09/28/2024 Results Follow-Up [facility] Medicine [address] [facility] [address] [place] [address] Yael Ruth NP [address] [facility] [address] [place] [address] Prealbumin Social History Tobacco Use Types Packs/Day Years [...] points, staff should administer the PHQ-9) 0 08/17/2024 [place] Depression Scale Answer Date Recorded [place] Depression Scale Total 2 11/29/2021 The thought of harming myself has occurred to me . 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
--- OUTSIDE RECORDS SUMMARY | 2024-10-21 10:46 | XMS_ITS | Encounter Summary ---
Author Organization [employer] Address 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
--- OUTSIDE RECORDS SUMMARY | 2024-10-21 10:46 | XMS_ITS | Clinical Summary ---
Author Organization [facility] Address [address] [place] [address] Phone Care Team Providers Care Road Patcher Name Role Phone Lillie Ruiz MD Primary Care Provider [phone] Allergies Active Allergy Reactions Criticality Noted Date Comments Azithromycin Rash Low 01/14/2015 Codeine Other (See Comments) 10/10/2009 Causes insomnia and hyperactivity Latex Rash Medium 11/13/2011 Only to certain tapes Vancomycin Hives High 07/09/2016 Medications tacrolimus (PROTOPIC) 0.1 % Ointment Apply to affected area 2 times daily. 100 Gram 3 01/04/2017 1:40 PM CDT 7 Active betamethasone dipropionate (DIPROSONE) 0.05 % Cream Apply to hands twice daily for 2 weeks when flaring. 45 Gram 3 05/10/2017 2:53 PM HEDDLER TIER 7 Active Fluocinolone-Hydr oq.-Tretinoin (TRI-IVANNA) 0.01-4-0.05 % Cream Apply to affected area on face at bedtime.. 30 Gram 8 Active FLUoxetine (PROzac) 20 mg capsule Take 1 Capsule by mouth once daily for 2 weeks, then 2 capsules by mouth daily 60 Capsule 02/25/2018 4:59 PM CDT 8 Active albuterol HFA 90 mcg inhaler Take 2 Puffs by inhalation every 6 hours as needed for Shortness of Breath. 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 90 Tablet 09/04/2018 11:39 AM CDT 9 Active Active Problems Problem Noted Date Diagnosed Date Post-op pain 08/20/2017 Post-operative nausea and vomiting 08/20/2017 Eczema 08/19/2017 S/P section 06/28/2016 Spotting affecting in first trimester 12/16/2015 , supervision, high-risk 11/25/2015 Overview (02/02/2016): Morbid obesity Hypothyroidism PCOS (metformin) Abnormal Pap smear of cervix 02/08/2015 Overview (12/02/2015): 12/2014: LGSIL 01/2015: ALICE 1 11/2015: LGSIL Elevated fasting insulin level with normal gluco se 10/27/2014 Acquired hypothyroidism 10/26/2014 Morbid obesity with BMI of 50.0-59.9, adult Polycystic ovarian syndrome Resolved Problems Problem Noted Date Diagnosed Date Resolved Date Wound cellulitis 07/06/2016 08/19/2017 Incisional abscess 8 Immunizations Immunization Administration Dates Next Due (ADACEL/BOOSTRIX)(10 YR UP) TDAP VACCINE, 0.5ML, IM 10/10/2009 (M-M-R II/PRIORIX)(12 MO UP) MEASLES, MUMPS AND RUBELLA VIRUS VACCINE, 0.5 ML IM/SUBCUT 12/10/2014,11/10/2014 (VARIVAX)(12 MOS UP)VARICELL A VIRUS VACCINE (PF) 0.5 ML, SUB CUT 12/10/2014,11/10/2014 INFLUENZA VACCINE QUADRIVALENT 3 YR UP PF IM ,04/01/2015 Influenza Seasonal Unspecified Formulation IM ,02/07/2017 Skin Test TB 11/10/2014,10/26/2014 Family History Medical History Relation Name Comments Healthy Brother 1 Healthy Brother 2 Diabetes Father Diabetes Mother Relation Name Status Comments Brother 1 Alive Brother 2 Alive Father Alive Maternal Grandfather Alive Maternal Grandmother Alive Mother Alive Paternal Grandfather Paternal Grandmother Social History Tobacco Use Types Packs/Day Years Used Date Smoking Tobacco: Never Smokeless Tobacco: Never Tobacco Cessation:Counseling Given: No Alcohol Use Standard Drinks/Week Comments No 0 (1 standard drink = 0.6 oz pur e alcohol) Comments No Sex and Gender Information Value Date Recorded Sex Assigned at Not on file Legal Sex Female 5:13 AM HEDDLER TIER Gender Identity Not on file Sexual Orientation Not on file Occupation Industry Job Start Date Job End Date Not on file Not on file Not on file Not on file Last Filed Vital Signs Vital Sign Reading Time Taken Comments Blood Pressure 116/64 03/07/2018 8:04 AM CDT Pulse 87 03/07/2018 8:04 AM CDT Temperature 36.6 C (97.8 F) 03/07/2018 8:04 AM CDT Respiratory Rate 18 03/07/2018 8:04 AM CDT Oxygen Saturation 98% 03/07/2018 8:04 AM CDT Inhaled Oxygen Concentration - - Weight 109.1 kg (240 lb 9.6 oz) 03/07/2018 8:04 AM CDT Height 166.4 cm (5' 5.5) 03/07/2018 8:04 AM CDT Body Mass Index 39.43 03/07/2018 8:04 AM CDT Plan of Treatment Health Maintenance Due Date Last Done Comments HEPATITIS B VACCINES (1 of 3 - 19+ 3-dose series) 11/03/2006 DTAP/TDAP/TD VACCINES (2 - Td or Tdap) 10/11/2019 10/10/2009 Pre-Diabetes and Diabetes Screening 01/09/2021 01/09/2018, 12/26/2017, 01/04/2017, Additional history exists PAP SMEAR 03/07/2021 03/07/2018, 02/17, 08/10/2016, Additional history exists CERVICAL CANCER SCREENING 03/07/2023 HPV/Cotest (21-29) 03/07/2023 03/07/2018, 0 08/10/2016, 11/25/2015, Additional history exists HPV/Cotest (30-65) 03/07/2023 03/07/2018, 0 08/10/2016, 11/25/2015, Additional history exists INFLUENZA VACCINE (#1) 2023 8, 02/07/2017, 02/03/2016, Additional history exists Preventative Visit- Commercial 05/20/2024 03/07/2018, 01/11/2015, 10/26/2014, Additional history exists HPV VACCINES Aged Out No longer eligi ble based on patient's age to complete this topic Medical Devices Implanted Type Area Car Salesperson Device Identifier Shelf Expiration Date Model / Serial / Lot Jamguvignesh Endogia 60 Prpl [id number] - [id number] Implanted:Qty : 2 on 08/19/2017 by Manuel Rousseau MD at [facility] Biological N/A: Stomach [employer] 04/18/2020 [id number] / / [id number] Seamguard Endogia 60 Blck [id number] - [id number] Implanted:Qty : 2 on 08/19/2017 by Manuel Rousseau MD at [facility] Biological N/A: Stomach [employer] 03/19/2020 [id number] / / [id number] Procedures Procedure Name Priority Date/Time Associated Diagnosis Comments HPV HIGH RISK DETECTION Routine 03/07/2018 10:40 AM CDT Well woman exam with routine gynecological exam CERV/VAG CYTO AGE BASED SCREEN PAP W CT/NG Routine 03/07/2018 10:40 AM CDT Well woman exam with routine gynecological exam HEMOGLOBIN A1C Routine 01/09/2018 12:18 PM CDT Hypoglycemia from Last 3 Months or Most Recently Relevant to Health Maintenance Results * HPV HIGH RISK DETECTION (03/07/2018 10:40 AM CDT) HPV E6/E7 Not Detected Not Detected 03/13/2018 10:37 AM CDT [facility] Comment: This test was performed using the APTIMA HPV Assay ([employer] This assay detects E6/E7 viral messenger RNA (mRNA) from 14 high-risk HPV types (16,18,31,33,35,39,45,51,52,56,58,59,66,68). The analytical performance characteristics of this assay have been determined by [employer]. The modifications have not been cleared or approved by the FDA. This assay has been validated pursuant to the CLIA regulations and is used for clinical purposes. Genital SWAB OF ENDOCERVIX / Unknown Collection / Unknown 03/07/2018 10:40 AM CDT 03/07/2018 12:49 PM CDT Narrative [facility] - 03/13/2018 10:37 AM CDT Performing Organization Information: Site ID: [facility] Name: [facility] Address: [address] [place] [address] [place] [address] Director: Todd Barlow D.O. MPH Julienne Berg MD PATHOLOGY/CYTOLOGY ORDERABLES Final Result Performing Organization Address City/[facility]/ZIP Co de Phone Number [facility] * CERV/VAG CYTO AGE BASED SCREEN PAP W CT/NG (03/07/2018 10:40 AM CDT) COMMENT (PAP): SEE COMMENT 8 10:37 AM CDT [facility] Comment: This order for age-based cervical cancer and STI screening follows ACOG guidelines(PB 168, 140, BBV562). See individual assays for performing site location. Genital SWAB OF ENDOCERVIX / Unknown Collection / Unknown 03/07/2018 10:40 AM CDT 03/07/2018 12:49 PM CDT Narrative [facility] - 03/13/2018 10:37 AM CDT Performing Organization Information: Site ID: [facility] Name: [facility] Address: [address] [place] [address] [place] [address] Director: Todd Barlow D.O. MPH Julienne Berg MD PATHOLOGY/CYTOLOGY ORDERABLES Final Result [facility] * HEMOGLOBIN A1C (01/09/2018 12:18 PM CDT) HEMOGLOBIN A1C 4.8 4.0 - 6.0 % 01/09/2018 12:37 PM CDT [facility] EST. AVG GLUCOSE, A1C 91 mg/dL 01/09/2018 12:37 PM CDT [facility] Blood Venipuncture / Unknown 01/09/2018 12:18 PM CDT 01/09/2018 12:18 PM CDT Narrative [facility] - 01/09/2018 12:37 PM CDT HGB A1C INTERPRETATION NORMAL: <5.7% PRE-DIABETES: 5.7 - 6.4% DIABETES: 6.5% OR GREATER us Tara Casas ANP CHEMISTRY ORDERABLES Final Re sult [facility]AM[facility] Drop Messages [facility] CLIA# [id number] [address] [place] [address] from Last 3 Months or Most Recently Relevant to Health Maintenance Insurance RX MEDIMPACT Member Subscriber Plan / Payer (Ef fective for All Dates) Name:Jmaila Nobles Relation to Subscriber:Self Name:Jamila Nobles Payer ID:Not on file Group ID:[id number] Type:RX Commercial Address: [place], [place] RX SINHA PLANS (INTERNAL) [facility] Internal Plans Advance Directives For more information, please contact: [phone] * Full Code (Latest Code Status on File) Date Activated Date Inactivated Comments 08/19/2017 9:53 AM 08/20/2017 4:40 PM * Full Code Date Activated Date Inactivated Comments 08/19/2017 7:15 AM 08/19/2017 9:53 AM * Full Code Date Activated Date Inactivated Comments 08/19/2017 6:23 AM 08/19/2017 7:15 AM * Full Code Date Activated Date Inactivated Comments 06/28/2016 6:22 PM 07/02/2016 1:21 PM * Full Code Date Activated Date Inactivated Comments 06/27/2016 7:51 AM 06/28/2016 6:[address] Relationship Specialty Start Date End Date Lillie Ruiz MD [address] [place] [phone] PCP - General Family Practice 10/26/14
--- OUTSIDE RECORDS SUMMARY | 2024-10-21 10:46 | XMS_ITS | Encounter Summary ---
Author Organization [facility] Healthcare Address [address] [place] [address] Care Team Providers Care Early Childhood Education Coordinator Name Role Phone Essence Wren MD Unavailable [phone] Mary Guillen MD Primary Care Provider Encounter Details Date Type Department Care Team (Late st Contact Info) Description 09/17/2024 Results Follow-Up [facility] Medicine [address] [facility] [address] [place] [address] Yael Ruth NP [address] [facility] [address] [place] [address] Prealbumin, T4, free, T3, free, TSH Social History Tobacco Use Types Packs/Day Years [...] staff should administer the PHQ-9) 0 08/17/2024 [place] Depression Scale Answer Date Recorded [place] Depression Scale Total 2 11/29/2021 The thought of harming myself has occurred to me . Never 11/29/2021 Comments No Sex and Gender Information Value Date Recorded Sex Assigned at Not on file Legal Sex Female 11:39 PM PR MANAGER Gender Identity Female 03/08/2021 3:50 PM CDT Sexual Orientation Straight 03/08/2021 3: 50 PM CDT documented as of this encounter Plan of Treatment Not on file documented as of this encounter Visit Diagnoses Not on filedocumented in this encounter Care Teams Early Childhood Education Coordinator Relationship Specialty Start Date End Date Mary Guillen MD [address] [facility] [address] [place] [address] PCP - General Internal Medicine 05/08/22 Essence Wren MD Consulting Physician Obstetrics and Gynecology 09/19/21 documented as of this encounter
--- OUTSIDE RECORDS SUMMARY | 2024-10-21 10:46 | XMS_ITS | Encounter Summary ---
Author Organization [facility] Healthcare Address [address] [place] [address] Care Team Providers Care Co Founder And Chairman Name Role Phone Essence Wren MD Unavailable [phone] Mary Guillen MD Primary Care Provider Reason for Visit * Reason Onset Date Comments Med Management 10/19/2024 [place] Encounter Details Date Type Department Care Team (Late st Contact Info) Description 10/19/2024 Telephone [facility] Medical Group Endocrinology at [facility] [address] [facility] [address] [place] [phone] Keegan Gallegos MD [address] [facility] [address], [place] [address] Med Management ([place]) Social History Tobacco Use Types Packs/Day Years [...] staff should administer the PHQ-9) 0 10/16/2024 [place] Depression Scale Answer Date Recorded [place] Depression Scale Total 2 11/29/2021 The thought of harming myself has occurred to me . Never 11/29/2021 Comments No Sex and Gender Information Value Date Recorded Sex Assigned at Not on file Legal Sex Female 11:39 PM RELATIONSHIP MANAGER Gender Identity Female 03/08/2021 3:50 PM CDT Sexual Orientation Straight 03/08/2021 3: 50 PM CDT documented as of this encounter Miscellaneous Notes * Telephone Encounter - [facility] - 10/19/2024 3:41 PM CDT PA submitted via CMM for Synthroid 137 mcg. [facility]: [id number] [place] Rx #: [id number] Outcome Denied on October 19 by [employer] 2016 CaseId:[id number];Status:Denied;Review Type:Prior Auth;Appeal Information: Attention:ATTN: CLINICAL APPEALS DEPARTMENT [employer] [address] [address],[place], [place],[address] ; Important - Please read the below note on eAppeals: Please reference the denial letter for information on the rights for an appeal, rationale for the denial, and how to submit an appeal including if any information is needed to support the appeal. Note about urgent situations - Generally, anurgent situation is one which, in the opinion of the provider, the health of the patient may be in serious jeopardy or may experience pain that cannot be adequately controlled while waiting for a deci marilee on the appeal.; documented in this encounter Plan of Treatment Not on file documented as of this encounter Visit Diagnoses Not on filedocumented in this encounter Care Teams Co Founder And Chairman Relationship Specialty Start Date End Date Mary Guillen MD [address] [address] PCP - General Internal Medicine 05/08/22 Essence Wren MD Consulting Physician Obstetrics and Gynecology 09/19/21 documented as of this encounter
--- OUTSIDE RECORDS SUMMARY | 2024-10-21 10:46 | XMS_ITS | Clinical Summary ---
Author Organization [facility] Address [address] [place] [address] Care Team Providers Care Linen Keeper Name Role Phone Essence Wren MD Unavailable [phone] Mary Guillen MD Primary Care Provider Allergies Active Allergy Reactions Criticality Noted Date [...] THE SKIN EVERY 7 DAYS 2 mL Active levothyroxine (SYNTHROID) 125 mcg tabletIndications :Acquired hypothyroidism Take 1 tablet (125 mcg total) by mouth yard switcher before breakfast 90 tablet 025 2024 Discontinued(A [...] test given also going for surgery in [place] possibly. recommend [id number] famotidine (Pepcid) for two weeks for potential acid reflux. Consider a muscular origin if symptoms persist despite ERRONEOUS ENCOUNTER--DISREGARD 05/25/2024 Severe episode of recurrent major depressive disorder, without psychotic features 07/10/2022 Assessment & Plan (02/07/2023 8:29 AM CDT): Doing much better with this as she has changed jobs Assessment & Plan (07/10/2022 3:12 PM MUSICAL PERFORMER): We discussed this at length. We encouraged her significantly to start therapy. She is an upcoming appointment in 2 weeks. Discussed to follow therapy at least once or twice a week. Discussed the role of medications and improving the serotonin and dopamine. Discussed using sertraline 25 mg a day with weekly follow-ups with us through [facility] about her progress. Discussed any worsening symptoms do notify us as soon as possible. Follow-up with us in 1 month. Recommend intermittent FMLA to meet with our appointments as well as the appointments with the therapist. Highly recommend in person visits at this current time. Routine physical examination 05/08/2022 Assessment & Plan (05/08/2022 3:34 PM MUSICAL PERFORMER): Discussed vaccinations. Discussed diet and exercise changes. Complimented her on exercising at least 3 times a week. She is currently . Attention deficit disorder (ADD) without hyperac tivity 05/08/2022 Assessment & Plan (10/07/2024 9:12 PM CDT): Doing well on vyvanse Assessment & Plan (05/27/2024 3:23 PM MUSICAL PERFORMER): Has been doing well on Vyvanse. Would [...] months. Assessment & Plan (04/03/2023 9:18 PM MUSICAL PERFORMER): Currently on Vyvanse 50 mg daily. Has been tolerating it well. We discussed make an appointment in the office in next couple of months for follow-up. Needs a blood pressure check. Assessment & Plan (02/07/2023 8:32 AM CDT): We d/w vyvanse and start at 30 mg a day We d.w not to consider with these meds Assessment & Plan (05/08/2022 3:36 PM MUSICAL PERFORMER): Predominantly poor focus. Definitely scored high on [...] well. H/O gastric sleeve 05/16/2021 Overview (05/16/2021): -2017 Assessment & Plan (01/29/2024 2:56 PM CDT): We will start with blood work and getting vitamin B12 level. She was currently was started on zepbound has losing weight Assessment & Plan (04/03/2023 9:19 PM MUSICAL PERFORMER): Continue with vitamins continue with weight loss efforts Assessment & Plan (02/07/2023 8:31 AM CDT): Unfortunately gained weight and ivan castro and use of wegovy for weight management Assessment & Plan (05/08/2022 3:35 PM MUSICAL PERFORMER): She has lost about 100 lb from [...] 16wks Assessment & Plan (05/08/2022 3:35 PM MUSICAL PERFORMER): Would actually recommend checking insulin levels. Dysthymia [...] exercise Assessment & Plan (05/27/2024 3:23 PM MUSICAL PERFORMER): Currently on zepbound. Doing very well on [...] understanding. Assessment & Plan (04/03/2023 9:18 PM MUSICAL PERFORMER): Has been taking once a week. Has [...] cons Assessment & Plan (07/10/2022 3:12 PM MUSICAL PERFORMER): .BMI Follow-up includes: nutrition counseling. Assessment & Plan (05/08/2022 3:34 PM MUSICAL PERFORMER): BMI discussed she is post gastric sleeve [...] up in office. Maxillary sinusitis 03/04/2019 08/27/19 Assessment & Plan (03/04/2019 4:35 AM CDT): [...] levothyroxine Assessment & Plan (05/08/2022 3:35 PM MUSICAL PERFORMER): Last thyroid up testing was done in [...] Uses albuterol PRN Biliary colic 08/30/2011 05/08/2022 Encounters Date Type Department Care Team Description 10/20/2024 Telephone [facility] Endocrinology at [address] [phone] Tara Blunt LPN 10/19/2024 Telephone [facility] Endocrinology at [address] [place] [phone] Keegan Gallegos MD Med Management ([place]) 10/16/2024 1:30 PM CDT Office Visit [facility] Endocrinology at [address] [place] [phone] Keegan Gallegos MD 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 10/07/2024 12:30 PM CDT Telemedicine [address] [place] [address] Francisca Mcfarland NP Generalized anxiety disorder (Primary Dx); Class 1 obesity due to excess calories without serious comorbidity with body mass index (BMI) of 34.0 to 34.9 in adult; Attention deficit disorder (ADD) without hyperactivity 09/28/2024 10:40 AM CDT Lab [address] [phone] Low serum prealbumin 09/28/2024 Results Follow-Up [address] [address] Francisca Mcfarland NP Prealbumin 09/25/2024 Orders Only [address] [address] Francisca Mcfarland NP Low serum prealbumin (Primary Dx) 09/23/2024 9:30 AM CDT Telemedicine [facility] Orthopaedic Surgery [address] [facility] [address] [place] [address] Low serum prealbumin [R79.89] (Primary Dx); Class 1 obesity due to excess calories without serious comorbidity with body mass index (BMI) of 34.0 to 34.9 in adult [E66.811, E66.09, Z68.34] 09/18/2024 Orders Only [facility] [address] [place] [address] [address] [place] [address] Francisca Mcfarland NP Low serum prealbumin (Primary Dx); Class 2 obesity due to excess calories without serious comorbidity with body mass index (BMI) of 35.0 to 35.9 in adult 09/17/2024 1:50 PM CDT Lab [address] [place] [address] Low serum prealbumin; Acquired hypothyroidism 09/17/2024 Results Follow-Up [facility] [address] [facility] [address] [place] [address] Francisca Mcfarland NP Prealbumin, T4, free, T3, free, TSH 09/15/2024 Orders Only [address] [place] [phone] Francisca Mcfarland NP Low serum prealbumin (Primary Dx) 09/15/2024 Orders Only [address] [place] [phone] Francisca Mcfarland NP 09/02/2024 Results Follow-Up [address] [place] [phone] Francisca Mcfarland NP Prealbumin, T4, free, TSH, T3, free 09/02/2024 Orders Only [address] [place] [phone] Francisca Mcfarland NP Acquired hypothyroidism (Primary Dx) 08/31/2024 3:10 PM CDT Lab [address] [place] [address] Low serum prealbumin; Hypothyroidism, unspecified type 08/28/2024 Orders Only [address] [place] [phone] Francisca Mcfarland NP Low serum prealbumin (Primary Dx) 08/23/2024 Results Follow-Up [address] [place] [phone] Mary Guillen MD Stress Treadmill Test 08/21/2024 11:30 AM CDT Ancillary Procedure [facility] Cardiology [address] [facility] [address] [place] [phone] Other chest pain 08/21/2024 11:15 AM CDT Lab [facility] [address] [facility] [address] [place] [address] Vitamin B12 deficiency; Vitamin D deficiency; Preoperative clearance 08/21/2024 Results Follow-Up [place] [id number] [facility] [address] [place] [phone] Mary Guillen MD Vitamin B12, Ferritin, Iron profile w/ IBC, Additional followed-up results: 6 08/21/2024 Orders Only [address] [place] [phone] Francisca Mcfarland NP Preoperative clearance (Primary Dx); Vitamin D deficiency; Vitamin B12 deficiency 08/20/2024 Telephone [place] [id number] [facility] [address] [place] [phone] Mary Guillen MD [facility] 08/17/2024 3:00 PM CDT Office Visit [place] [id number] [facility] [address] [place] [phone] Francisca Mcfarland NP Other chest pain (Primary Dx); Acquired hypothyroidism; Class 2 obesity due to excess calories without serious comorbidity with body mass index (BMI) of 35.0 to 35.9 in adult; H/O gastric sleeve 08/13/2024 Nurse Triage [address] [place] [phone] Mary Guillen MD from Last 3 Months Immunizations Immunization Administration Dates Next Due Hep B, Adolescent or Pediatric 01/03/2000,1999 Influenza, Quadrivalent, Spl it, Preservative Free, Intramuscular 07/30/2016,02/03/2016,04/01/2015 Influenza, Trivalent, IM (MDV) 02/17/2018,2016 Influenza, Unspecified 04/01/2023(Deferr ed: Patient Refused),02/17/2023(Deferred: Patient Refused),02/18/2020,02/17/2019, 018 MMR 12/10/2014,11/10/2014 PPD TEST 11/10/2014,10/26/2014 Tdap 09/25/2021,10/18/2009 Varicella 12/10/2014,11/10/2014 Varicella Zoster Immune Globulin 11/10/2014 Surgical History Surgery Date Site/Laterality Comments TONSILLECTOMY Tonsillectomy SLEEVE GASTROPLASTY 08/18/2017 - 09/16/2017 SECTION 05/20/2016 - 05/19/2017 LAPAROSCOPIC CHOLECYSTECTOMY Medical History Medical History Date Comments Disorder of thyroid Thyroid dise ase Asthma Asthma Adiposity Obesity Anxiety Hypothyroidism Family History Medical History Relation Name Comments Anxiety disorder Brother Depression Brother Diabetes Brother Hypertension Brother Diabetes Father Diabetes type II Father Diabetes -T ype II; Hyperlipidemia Father Hyperlipidemi a; Hypertension Father Hypertension; Breast cancer Father's Sister Diabetes Mother Relation Name Status Comments Brother Alive Father Alive Father's Sister Other Maternal Grandfather Alive Maternal Grandmother Alive Mother [...] staff should administer the PHQ-9) 0 10/16/2024 [place] Depression Scale Answer Date Recorded [place] Depression Scale Total 2 11/29/2021 The thought of harming myself has occurred to me . Never 11/29/2021 Comments No Sex and Gender Information Value Date Recorded Sex Assigned at Not on file Legal Sex Female 11:39 PM MUSICAL PERFORMER Gender Identity Female 03/08/2021 3:50 PM CDT Sexual Orientation Straight 03/08/2021 3: 50 PM CDT Obstetrics History Para Term AB IAB SAB Ectopic Multiple Livin g Live Births 2 2 2 2 2 Date Outcome GA Total Labor Labor/2nd/3rd Weight Sex Type Anes PTL Zainab A1 A5 Name Clin 2016 Term 39w 5d 3.374 kg (7 lb 7 oz) F CS-LT ranv N Livin g 4 9 ANITA ,GIRL1 Brandy Santana Complications:Dysfunctional Labor,Cephalopelvic Disproportion,Failure to Progress in First Stage,Incisional infection Delivery Location:[facility] Comments:No observed a nomalifahad 2021 Term 39w 0d 0h 01m 0h 01m 3.345 kg (7 lb 6 oz) F CS-LT ranv Spinal N Livin g 8 9 Meganhaylie hernandez, Essence swartz MD Complications:None Delivery Location:[facility] ([facility] L AND D PROCEDURE) Last Filed Vital Signs Vital Sign Reading [...] 10/16/2024 1:17 PM CDT Plan of Treatment Health Maintenance Due Date Last Done Comments Influenza Vaccine (Season Ended) 2025 02/18/2020, 02/17/2019, 02/17/2018, Additional history exists Regular Well Visit/Exam 18-64 02/13/2025 02/14/2024, 01/23/2023, 05/08/2022, Additional history exists Depression Screening 10/16/2025 10/16/2024, 08/17/2024, 05/27/2024, Additional history exists Cervical Cancer Screening 01/23/2026 01/23/2023, 10/2022 DTaP/Tdap/Td Vaccine (7 - Td or Tdap) 09/26/2031 09/25/2021, 10/18/2009, 01/16/1993, Additional history exists Hepatitis B Screening Completed 01/03/2000, Varicella Vaccines Completed 12/10/2014, 0 11/10/2014, 11/10/2014 Hepatitis C Screening Completed 05/17/2021 HPV Vaccines Aged Out No longer eligi ble based on patient's age to complete this topic Pneumococcal vaccine <65 Aged Out No longer eligible based on patient's age to complete this topic Medical Devices Implanted Type Area Hydraulic Tester Device Identifier Shelf Expiration Date Model / Serial / Lot Zoop Seprafilm 6x5in Barrier Adhesion Sterile Disposable Latex Free [id number] - [id number] Implanted:Qty: 1 on 11/27/2021 by Essence Wren MD at [facility] N/A: Abdomen Zoop [id number] 01/20/2024 [id number] / / [id number] Procedures Procedure Name Priority Date/Time Associated Diagnosis [...] HEPATITIS C ANTIBODY Routine 05/17/2021 12:21 PM MUSICAL PERFORMER care, subsequent in first trimester from Last 3 Months or Most Recently Relevant to Health Maintenance Results * (ABNORMAL) Prealbumin (09/28/2024 10:43 AM CDT) Prealbumin 13.9(L) 20.0 - 40.0 mg/dL Blood 09/28/2024 10:4 3 AM CDT 09/28/2024 1:56 PM CDT Francisca Mcfarland NP LAB BLOOD ORDERABLES Final Re sult Performing Organization Address [facility] Co de Phone Number [facility] [address] [facility] [employer] [place], [place] [phone] * T3, free (09/17/2024 1:53 PM CDT) Free T3 2.8 2.0 - 4.4 pg/mL Blood 09/17/2024 1:53 PM CDT 09/17/2024 3:55 PM CDT Francisca Mcfarland NP LAB BLOOD ORDERABLES Final Re sult Performing Organization Address [facility] de Phone Number [facility] [address] [facility] [employer] [place], [place] [phone] * (ABNORMAL) TSH (09/17/2024 1:53 PM CDT) Thyroid Stimulating Hormone 4.96(H) 0.30 - 4.20 mcIUnit/mL Blood 09/17/2024 1:53 PM CDT 09/17/2024 3:55 PM CDT Francisca Mcfarland NP LAB BLOOD ORDERABLES Final Re sult Performing Organization Address [facility] Co de Phone Number [facility] [address] [facility] [employer] [place], [place] [phone] * T4, free (09/17/2024 1:53 PM CDT) Free T4 1.29 0.90 - 1.70 ng/dL Blood 09/17/2024 1:53 PM CDT 09/17/2024 3:55 PM CDT Francisca Mcfarland SASH ASSEMBLER LAB BLOOD ORDERABLES Final Re sult Performing Organization Address [facility] Co de Phone Number [facility] [address] [facility] [place] [place] [address] * (ABNORMAL) Prealbumin (09/17/2024 1:53 PM CDT) Prealbumin 13.4(L) 20.0 - 40.0 mg/dL Blood 09/17/2024 1:53 PM CDT 09/17/2024 3:55 PM CDT Francisca Mcfarland SASH ASSEMBLER LAB BLOOD ORDERABLES Final Re sult Performing Organization Address [facility] de Phone Number [facility] [address] [facility] [employer] [place] [address] * T3, free (08/31/2024 3:10 PM CDT) Free T3 2.9 2.0 - 4.4 pg/mL Blood 08/31/2024 3:10 PM CDT 08/31/2024 6:56 PM CDT Francisca Mcfarland SASH ASSEMBLER LAB BLOOD ORDERABLES Final Re sult Performing Organization Address [facility] Co de Phone Number [facility] [address] [facility] [employer] [place] [address] * TSH (08/31/2024 3:10 PM CDT) Thyroid Stimulating Hormone 3.99 0.30 - 4.20 mcIUnit/mL Blood 08/31/2024 3:10 PM CDT 08/31/2024 6:56 PM CDT Francisca Mcfarland SASH ASSEMBLER LAB BLOOD ORDERABLES Final Re sult Performing Organization Address [facility] Co de Phone Number [facility] [address] [facility] [employer] [place], [place] [phone] * T4, free (08/31/2024 3:10 PM CDT) Free T4 1.18 0.90 - 1.70 ng/dL Blood 08/31/2024 3:10 PM CDT 08/31/2024 6:56 PM CDT Francisca Mcfarland SASH ASSEMBLER LAB BLOOD ORDERABLES Final Re sult Performing Organization Address [facility] Co de Phone Number [facility] [address] [facility] [employer] [place], [place] [phone] * (ABNORMAL) Prealbumin (08/31/2024 3:10 PM CDT) Prealbumin 10.8(L) 20.0 - 40.0 mg/dL Blood 08/31/2024 3:10 PM CDT 08/31/2024 6:56 PM CDT Francisca Mcfarland SASH ASSEMBLER LAB BLOOD ORDERABLES Final Re sult Performing Organization Address [facility] Co de Phone Number [facility] [address] [facility] [employer] [place], [place] [phone] * Stress Treadmill Test (08/21/2024 12:15 PM CDT) Anatomical Region Laterality Modality Nuclear Medicine 08/21/2024 11:3 0 AM CDT Narrative 08/22/2024 1:33 PM CDT EXERCISE STRESS Patient Name: MELL NOBLES L : 1985 Study Date: 08/21/2024 11:30:00 AM Gender: F Tech: Brian Simmons RN Ref Provider: MCFARLAND, HIRALBEN Height(Cm): 165 BSA: 2.11 Weight(Kg): 97 Order Provider: FRANCISCA MCFARLAND PROCEDURES: Stress Report: Treadmill stress Exam. INDICATIONS: R07.89 Other chest pain. FINDINGS: Performed By: Brian Simmons RN. Krista Ruiz [facility]. Procedure Data: Protocol - Dany Protocol. Exercise Time: 08:57 Resting HR 96 bpm Peak HR: 190 bpm Predicted Maximal HR 184 bpm Target HR: 156 bpm Percent Max Predicted HR Achieved: 103 % Baseline BP: 117/85 Peak BP: 134/71 METS achieved: 10.3 Rate-Pressure Product: 79308 BPM*mmHg Max ST: Angina Index (0=No angina [...] age. Electronically Signed By: Kelton Cadet MD [facility] 08/22/2024 1:27:04 PM CDT Procedure [...] Performed By: Brian Simmons RN. Krista Ruiz [facility]. Procedure Data: Protocol - Dany Protocol. Exercise Time: 08:57 Resting HR 96 bpm Peak HR: 190 bpm Predicted Maximal HR 184 bpm Target HR: 156 bpm Percent Max Predicted HR Achieved: 103 % Baseline BP: 117/85 Peak BP: 134/71 METS achieved: 10.3 Rate-Pressure Product: 16461 BPM*mmHg Max ST: Angina Index (0=No angina [...] age. Electronically Signed By: Kelton Cadet MD [facility] 08/22/2024 1:27:04 PM CDT Francisca [...] NP LAB BLOOD ORDERABLES Final Re sult [facility] [address] Department of Laboratories [place], [place] [phone] * Differential, auto (08/21/2024 11:19 AM CDT) Neutrophil abs 5.75 1.50 - 6.50 K/cumm Imm gran abs 0.01 0.00 - 0.10 K/cumm [facility] Lymphocyte abs 1.55 0.80 - 3.30 K/cumm [facility] Monocyte abs 0.66 0.20 - 0.80 K/cumm [facility] Eosinophil abs 0.03 0.00 - 0.50 K/cumm [facility] Basophil abs 0.07 0.00 - 0.10 K/cumm [facility] Neutrophil pct 71.2 % [facility] Comment: Interpretive Data Percent cell count reference ranges are not reported, since discordance with absolute values may lead to misinterpretation of CBC data. Current Interpretive Data was last revised on 2017. Imm gran pct 0.1 % [facility] Comment: Interpretive Data Percent cell count reference ranges are not reported, since discordance with absolute values may lead to misinterpretation of CBC data. Current Interpretive Data was last revised on 2017. Lymphocyte pct 19.2 % [facility] Comment: Interpretive Data Percent cell count reference ranges are not reported, since discordance with absolute values may lead to misinterpretation of CBC data. Current Interpretive Data was last revised on 2017. Monocyte pct 8.2 % [facility] Comment: Interpretive Data Percent cell count reference ranges are not reported, since discordance with absolute values may lead to misinterpretation of CBC data. Current Interpretive Data was last revised on 2017. Eosinophil pct 0.4 % [facility] Comment: Interpretive Data Percent cell count reference ranges are not reported, since discordance with absolute values may lead to misinterpretation of CBC data. Current Interpretive Data was last revised on 2017. Basophil pct 0.9 % [facility] Comment: Interpretive Data Percent cell count reference ranges are not reported, since discordance with absolute values may lead to misinterpretation of CBC data. Current Interpretive Data was last revised on 2017. Blood 08/21/2024 11:1 9 AM CDT 08/21/2024 1:50 PM CDT Francisca Mcfarland NP LAB BLOOD ORDERABLES Final Re sult Performing Organization Address City/[facility] Co de Phone Number [facility] [address] Department [place] [address] * Iron profile w/ IBC (08/21/2024 11:19 AM CDT) Iron 89 35 - 145 mcg/dL TIBC 290 250 - 400 mcg/dL [facility] Transferrin saturation 31 20 - 50 % [facility] Blood 08/21/2024 11:1 9 AM CDT 08/21/2024 2:31 PM CDT Francisca Mcfarland NP LAB BLOOD ORDERABLES Final Re sult Performing Organization Address City/State/[facility] de Phone Number [facility] [address] [facility] [place] [place] [address] * CBC with auto differential (08/21/2024 11:19 AM CDT) [facility] WBC 8.07 3.80 - 9.90 K/cumm Hgb 13.3 11.9 - 15.5 g/dL [facility] Hct 40.8 35.6 - 45.5 % [facility] Plt 391 150 - 400 K/cumm [facility] MPV 10.3 9.1 - 12.3 fL [facility] RBC 4.50 3.90 - 5.20 M/cumm [facility] MCV 90.7 81.3 - 96.4 fL [facility] MCH 29.6 27.1 - 33.3 pg [facility] MCHC 32.6 32.3 - 35.7 g/dL [facility] RDW CV 13.2 11.1 - 14.9 % [facility] RDW SD 43.6 35.7 - 48.1 fL [facility] NRBC abs 0.00 0.00 - 0.01 K/cumm [facility] Blood 08/21/2024 11:1 9 AM CDT 08/21/2024 1:50 PM CDT Francisca Mcfarland NP LAB BLOOD ORDERABLES Final Re sult Performing Organization Address [facility] Co de Phone Number [facility] [address] Department of [employer] [place] [address] * (ABNORMAL) Vitamin D 25 hydroxy (08/21/2024 11:19 AM CDT) [facility] Vitamin D 25-OH 28(L) 30 - 80 ng/mL Blood 08/21/2024 11:1 9 AM CDT 08/21/2024 2:31 PM CDT Francisca Mcfarland NP LAB BLOOD ORDERABLES Final Re sult Performing Organization Address [facility] Co de Phone Number [facility] [address] [facility] [place] [place] [address] * (ABNORMAL) Prealbumin (08/21/2024 11:19 AM CDT) Pathologist [facility] Prealbumin 11.9(L) 20.0 - 40.0 mg/dL Blood 08/21/2024 11:1 9 AM CDT 08/21/2024 2:31 PM CDT Francisca Mcfarland SASH ASSEMBLER LAB BLOOD ORDERABLES Final Re sult Performing Organization Address [facility] Co de Phone Number [facility] [address] [facility] [place] [place] [address] * Ferritin (08/21/2024 11:19 AM CDT) [facility] Ferritin 37 15 - 150 ng/mL Blood 08/21/2024 11:1 9 AM CDT 08/21/2024 2:31 PM CDT Francisca Mcfarland SASH ASSEMBLER LAB BLOOD ORDERABLES Final Re sult Performing Organization Address [facility] de Phone Number [facility] [address] [facility] [place] [place] [address] * Vitamin B12 (08/21/2024 11:19 AM CDT) [facility] Vitamin B12 375 230 - 1,250 pg/mL Blood 08/21/2024 11:1 9 AM CDT 08/21/2024 2:31 PM CDT Francisca Mcfarland SASH ASSEMBLER LAB BLOOD ORDERABLES Final Re sult Performing Organization Address [facility] Co de Phone Number [facility] [address] [facility] [place] [address] * (ABNORMAL) Comprehensive metabolic panel (08/21/2024 11:19 AM CDT) Sodium 140 135 - 145 mmol/L Potassium, pl 4.0 3.3 - 4.9 mmol/L [facility] Chloride 105 97 - 110 mmol/L [facility] CO2 21(L) 22 - 32 mmol/L [facility] Anion gap 14 2 - 15 mmol/L [facility] BUN 7 6 - 25 mg/dL [facility] Creatinine 0.71 0.60 - 1.10 mg/dL [facility] Glucose 90 70 - 199 mg/dL [facility] Comment: Interpretive Data Fasting glucose >/= 126 [...] classification and Diagnosis of Diabetes Diabetes Care 2021; 46: S19-S40. Current interpretive data was last revised 2022. Calcium 9.1 8.5 - 10.3 mg/dL [facility] Bilirubin, total 0.9 0.1 - 1.2 mg/dL [facility] Protein, pl 7.1 6.5 - 8.5 g/dL [facility] Albumin 4.4 3.5 - 5.0 g/dL [facility] Alk phos 67 40 - 130 Units/L [facility] ALT 10 7 - 45 Units/L [facility] AST 16 10 - 45 Units/L [facility] Blood 08/21/2024 11:1 9 AM CDT 08/21/2024 2:31 PM CDT Francisca Mcfarland NP LAB BLOOD ORDERABLES Final Re sult [facility] [address] Department [place] [address] * (ABNORMAL) ECG 12-LEAD (08/17/2024 9:00 PM CDT) Narrative Francisca Mcfarland NP - 08/17/2024 9:00 PM CDT Francisca Mcfarland NP 08/17/2024 9:00 PM ECG 12 lead Date/Time: 08/17/2024 9:00 PM Performed by: Francisca Mcfarland NP Authorized by: Francisca Mcfarland NP Rhythm: sinus rhythm Rate: normal QRS axis: normal Clinical impression: abnormal ECG Comments: Consider old infarct Francisca Mcfarland NP ECG ORDERABLES Final Result * High Risk HPV DNA Detection with Genotyping (Molecular component) (01/23/2023 9:48 AM CDT) HPV HR 16 Not Detected Not Detected [facility] HPV HR 18 Not Detected Not Detected [facility] HPV HR Non 16/18 Not Detected Not Detected [facility] Comment: Interpretive Data Nucleic acid amplification for [...] this test have been verified by the [facility]. Correlate with separately reported cytology results, as applicable. Interpretive data last revised 22 Endocervical 01/23/2023 9:48 AM CDT 01/23/2023 5:18 PM CDT Narrative [facility] - 01/26/2023 7:17 PM CDT Clinical history and diagnosis->Well Woman Number of vials->1 Testing type->Screening Last menstrual period (date if known)->01/06/23 Yamila URIOSTEGUI LAB BODY FLUIDS AND STOOL S ORDERABLES Final Result [facility] [address] Department [place] [address] * Hepatitis C antibody (05/17/2021 12:21 PM MUSICAL PERFORMER) Hep C Ab Nonreactive Nonreactive [facility] Comment: Interpretive Data Nonreactive: Antibodies to HCV [...] last revised on 2019. Testing performed by: [facility], [address] [place] [address]., [address] Blood 05/17/2021 12:2 1 PM MUSICAL PERFORMER 05/17/2021 2:43 PM MUSICAL PERFORMER us Essence Wren MD LAB MICROBIOLOGY - GEN ERAL ORDERABLES Final Result [facility] [address] [facility]. Department [place] [address] from Last 3 Months or Most Recently Relevant to Health Maintenance Insurance [address] [place] [id number] [employer] EMPL[employer]EE HEALTH PLANS Address: [facility] [id number] [phone] [facility] EM[employer]YE[employer] [employer]ES [employer]ES Advance Directives For more information, please contact: [phone] * Full Code (Latest Code Status on File) Date Activated Date Inactivated Comments 11/27/2021 9:43 AM 11/29/2021 10:23 PM * Full Code Date Activated Date Inactivated Comments 11/27/2021 4:37 AM 11/27/2021 9:43 AM Full CPR in case of cardiopulmonary arrest Care Teams Linen Keeper Relationship Specialty Start Date End Date Mary Guillen MD [address] [address] PCP - General Internal Medicine 05/08/22 Essence Wren MD Consulting Physician Obstetrics and Gynecology 09/19/21
--- OUTSIDE RECORDS SUMMARY | 2024-10-21 10:46 | XMS_ITS | Encounter Summary ---
Author Organization [employer] Address 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
--- OUTSIDE RECORDS SUMMARY | 2024-10-21 10:46 | XMS_ITS | Encounter Summary ---
Author Organization [facility] Healthcare Address [address] [place] [address] Care Team Providers Care Medical Staff Services Coordinator Name Role Phone Essence Wren MD Unavailable [phone] Mary Guillen MD Primary Care Provider Encounter Details Date Type Department Care Team (Late st Contact Info) Description 08/21/2024 Results Follow-Up [facility] Medicine [address] [facility] [address] [place] [address] Mary Guillen MD [address] [facility] [address] [place] [address] Vitamin B12, Ferritin, Iron profile w/ IBC, Additional followed-up results: 6 Social History Tobacco Use Types Packs/Day Years [...] staff should administer the PHQ-9) 0 08/17/2024 [place] Depression Scale Answer Date Recorded [place] Depression Scale Total 2 11/29/2021 The thought of harming myself has occurred to me . 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 [address] [place] [address] PCP - General Internal Medicine 05/08/22 Essence Wren MD Consulting Physician Obstetrics and Gynecology 09/19/21 documented as of this encounter
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
--- OUTSIDE RECORDS SUMMARY | 2024-10-21 10:46 | XMS_ITS | Encounter Summary ---
Author Organization [facility] Healthcare Address [address] [place] [address] Care Team Providers Care Loss Prevention Guard Name Role Phone Essence Wren MD Unavailable [phone] Mary Guillen MD Primary Care Provider Encounter Details Date Type Department Care Team (Late st Contact Info) Description 09/02/2024 Results Follow-Up [facility] Medicine [address] [facility] [address] [place] [address] Yael Ruth NP [address] [facility] [address] [place] [address] Prealbumin, T4, free, TSH, T3, free Social History Tobacco Use Types Packs/Day Years [...] staff should administer the PHQ-9) 0 08/17/2024 [place] Depression Scale Answer Date Recorded [place] Depression Scale Total 2 11/29/2021 The thought of harming myself has occurred to me . 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
--- OUTSIDE RECORDS SUMMARY | 2024-10-21 10:46 | XMS_ITS | Encounter Summary ---
Author Organization [facility] Healthcare Address [address] [place] [address] Care Team Providers Care Concrete Stone Fabricator Name Role Phone Essence Wren MD Unavailable [phone] Mary Guillen MD Primary Care Provider Encounter Details Date Type Department Care Team (Late st Contact Info) Description 10/20/2024 Telephone [facility] Endocrinology at [facility] [address] [facility] [address] [place] [phone] Tara Blunt LPN Social History Tobacco Use Types Packs/Day Years [...] staff should administer the PHQ-9) 0 10/16/2024 [place] Depression Scale Answer Date Recorded [place] Depression Scale Total 2 11/29/2021 The thought of harming myself has occurred to me . 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 Prefers Unithroid, Euthyrox. May also use Synthroid delivers. Message sent to the provider documented in this encounter Plan of Treatment Not on file documented as of this encounter Visit Diagnoses Not on filedocumented in this encounter Care Teams Concrete Stone Fabricator Relationship Specialty Start Date End Date Mary Guillen MD [address] [address] PCP - General Internal Medicine 05/08/22 Essence Wren MD Consulting Physician Obstetrics and Gynecology 09/19/21 documented as of this encounter
--- OUTSIDE RECORDS SUMMARY | 2024-10-21 10:46 | XMS_ITS | Encounter Summary ---
Author Organization [facility] Healthcare Address [address] [place] [address] Care Team Providers Care Applications Scientist Name Role Phone Essence Wren MD Unavailable [phone] Mary Guillen MD Primary Care Provider Encounter Details Date Type Department Care Team (Late st Contact Info) Description 08/23/2024 Results Follow-Up [facility] Medicine [address] [facility] [address] [place] [address] Mary Guillen MD [address] [facility] [address] [place] [address] Stress Treadmill Test Social History Tobacco Use Types Packs/Day Years [...] staff should administer the PHQ-9) 0 08/17/2024 [place] Depression Scale Answer Date Recorded [place] Depression Scale Total 2 11/29/2021 The thought of harming myself has occurred to me . 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
--- OUTSIDE RECORDS SUMMARY | 2024-10-21 10:47 | XMS_ITS | Encounter Summary ---
Author Organization [facility] Healthcare Address [address] [place] [address] Care Team Providers Care Port Surveyor Name Role Phone Naila Sanchez DO Primary Care Provider [phone] Essence Wren MD Unavailable [phone] Mary Guillen MD Primary Care Provider Encounter Details Date Type Department Care Team (Late st Contact Info) Description 12/01/2021 Documentation [facility] [address] [place] [address] Holly Davalos RN Social History Tobacco Use Types Packs/Day Years Used Date Smoking Tobacco: Never Alcohol Use Standard Drinks/Week Comments No 0 (1 standard drink = 0.6 oz pur e alcohol) AUDIT-C Answer Date Recorded Q1: How often do you have a drink containing alc ohol? Never 09/06/2021 Average Number of Drinks Not on file 022 Frequency of Binge Drinking Not on file 08/19 PHQ-2 Answer Date Recorded PHQ-2 Total Score (If total score is 3 or more points, staff should administer the PHQ-9) 2 08/23/2020 [place] Depression Scale Answer Date Recorded [place] Depression Scale Total 2 11/29/2021 The thought of harming myself has occurred to me . 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 Said her friend told her,her baby had a labial frenotomy. Looked up her friend and it was lingual per procedure note. documented in this encounter Plan of Treatment Not on file documented as of this encounter Visit Diagnoses Not on filedocumented in this encounter Additional Health Concerns Infection Onset Date Last Indicated Resolved Time COVID: Suspected 06/12/2022 06/12/2022 06/13/2022 3:05 AM INSPECTOR OPEN DIE COVID: Suspected 06/12/2022 06/12/2022 06/13/2022 6:30 AM INSPECTOR OPEN DIE COVID19 06/12/2022 06/12/2022 06/22/2022 3:05 AM INSPECTOR OPEN DIE COVID: Recovered Comment:Added based on recent COVID infection. 06/22/2022 06/26/2022 09/20/2022 3:05 AM C DT COVID: Suspected 08/06/2022 08/06/2022 08/07/2022 3:05 AM CDT COVID: Suspected 08/06/2022 08/06/2022 08/07/2022 4:46 AM CDT documented as of this encounter Care Teams Port Surveyor Relationship Specialty Start Date End Date Naila Sanchez DO PCP - General Family Medicine 08/23/20 05/07/22 Mary Guillen MD [address] [address] PCP - General Internal Medicine 05/08/22 Essence Wren MD Consulting Physician Obstetrics and Gynecology 09/19/21 documented as of this encounter
--- OUTSIDE RECORDS SUMMARY | 2024-10-21 10:47 | XMS_ITS | Clinical Summary ---
Author Organization [facility] Address [address] [place] [address] Care Team Providers Care Charcoal Unloader Name Role Phone MatthewGuichoJessica Tara Primary Care Provider Unavailable Source Comments [facility],non-owned Affiliates and Associated Physician Practices is amultiple site organization consisting of ambulatory clinics and hospital sitesin [place], [place], [place] and [place]. This disclosure is being madepursuant to the Care Everywhere program and may not contain all information available regarding this patient. Last updated 18.[facility] YellowSchedule Allergies Active Allergy Reactions Criticality Noted Date Comments Codeine Other 08/30/2011 Hyperactive,couldnt sleep Latex 08/28/2011 Itchy , bumps , , swollen tongue Medications * Be aware that medications may not be up to date on this document. Alwaysverify current medications with the patient. thyroid (ARMOUR THYROID) 120 MG tablet Take 120 mg by mouth at bedtime. Active norgestimate-et hinyl estradiol (ORTHO TRI-CYCLEN; TRINESSA; TRI-PREVIFEM; TRI-SPRINTEC) 0.035 MG tablet Take 1 Tab by mouth once daily. 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 Gender Identity Not on file Sexual Orientation Not on file Last Filed Vital Signs Vital Sign Reading Time Taken Comments Blood Pressure 108/56 01/08/2019 11:57 AM CDT Pulse 69 01/08/2019 11:57 AM CDT Temperature 36.9 C (98.5 F) 01/08/2019 11:57 AM CDT Respiratory Rate 16 01/08/2019 11:57 AM CDT Oxygen Saturation 99% 01/08/2019 11:57 AM CDT Inhaled Oxygen Concentration - - Weight 107.5 kg (237 lb) 01/07/2019 8:20 PM CDT Height 165.1 cm (5' 5) 01/07/2019 8:20 PM CDT Body Mass Index 39.44 01/07/2019 8:20 PM CDT Plan of Treatment Health Maintenance Due Date Last Done Comments HIV SCREENING 11/03/2002 HEPATITIS C SCREENING 10/30/2005 DTAP/TDAP/TD VACCINES (1 - Tdap) 11/03/2006 HEPATITIS B VACCINE (1 of 3 - 19+ 3-dose series) 11/03/2006 COVID-19 VACCINE ( - 2023- season) 2024 DEPRESSION SCREENING 05/20/2024 INFLUENZA VACCINE (Season Ended) 2025 02/17/2018, 02/07/2017, 02/03/2016, Additional history exists ZOSTER VACCINE (1 of 2) 11/03/2037 HIB VACCINE Aged Out No longer eligi ble based on patient's age to complete this topic HPV VACCINE Aged Out No longer eligi ble based on patient's age to complete this topic MENINGOCOCCAL (Group B) VACCINE SHARED DECISION-MAKING Aged Out No longer eligible based on patient's age to complete this topic MENINGOCOCCAL GROUPS A/C/Y/W VACCINE Aged Out No longer eligible based on patient's age to complete this topic PNEUMOCOCCAL VACCINE Aged Out No long er eligible based on patient's age to complete this topic Insurance [employer] Advance Directives * Full Code (Latest Code Status on File) Date Activated Date Inactivated Comments 01/07/2019 11:29 PM 01/08/2019 5:50 PM Care Teams Charcoal Unloader Relationship Specialty Start Date End Date Jessica Castro DO PCP - General Family Medicine 01/07/19
--- OUTSIDE RECORDS SUMMARY | 2024-10-21 10:47 | XMS_ITS | Encounter Summary ---
Author Organization [facility] Address [address] [place] [address] Care Team Providers Care Well Logging Operator Mud Analysis Name Role Phone Lillie Ruiz MD Primary Care Provider Encounter Details Date Type Department Care Team (Late st Contact Info) Description 08/07/2017 Abstract [facility] [address] [id number] Manuel Rousseau MD [address] [place] [address] Social History Tobacco Use Types Packs/Day Years Used Date Smoking Tobacco: Never Smokeless Tobacco: Never Alcohol Use Standard Drinks/Week Comments No 0 (1 standard drink = 0.6 oz pur e alcohol) Comments No Sex and Gender Information Value Date Recorded Sex Assigned at Not on file 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
[2024-10-21 11:25] LABS: Hematocrit 37.2 % (37.0-47.0); Mean Corpuscular HGB Conc 32.3 g/dl (32-36); Mean Corpuscular Hemoglobin 29.1 pg (26-34); Mean Corpuscular Volume 90.3 fl (80-100); Mean Platelet Volume 9.9 fl (7.4-10.4); Platelet Count Result 322 k/mm3 (150-375); Red Blood Count 4.12 M/mm3 (4.2-5.4); Red Cell Distribution Width 13.1 % (11.5-14.5); White Blood Count 6.6 K/mm3 (4.5-10.0)
[2024-10-21 11:33] LABS: Albumin Level 4.2 g/dL (3.5-5.1); Anion Gap 6 mmol/L (4-12); Blood Urea Nitrogen 15 mg/dL (7-17); Calcium 9.1 mg/dL (8.4-10.2); Carbon Dioxide 26 mmol/L (22-30); Chloride 108 mmol/L (98-107); Estimated Glomerular Filt Rate > 60; Glucose 89 mg/dL (65-110); Potassium 4.1 mmol/L (3.4-5.0); Sodium 140 mmol/L (137-145)
[2024-10-21 11:40] LABS: Prealbumin 14.5 mg/dL (17.6-36.0)
[2024-10-21 12:00] LABS: Iron 54 ug/dL (37-170)
[2024-10-25 15:40] LABS: Vitamin B1 7 nmol/L (8-30)
== END 2024-10-21 10:39 | disposition home or self-care (01) ==
LOC: ANHLAB 10:42
PROVIDERS: Visit Provider Surgery Plastic and Reconstructive Surgery
DX: R63.4 Abnormal weight loss (principal)
CPT/HCPCS: 36415; 80048; 82040; 83540; 84134; 84425; 85027

== ENCOUNTER 2024-11-18 12:26 | Outpatient (CLI) | payer OTHER, SELFPAY ==
--- OUTSIDE RECORDS SUMMARY | 2024-11-18 12:31 | XMS_ITS | Encounter Summary ---
Author Organization [facility] Healthcare Address [address] [place] [address] Care Team Providers Care Director Call Name Role Phone Essence Wren MD Unavailable [phone] Mary Guillen MD Primary Care Provider Encounter Details Date Type Department Care Team (Late st Contact Info) Description 09/28/2024 Results Follow-Up [facility] Medicine [address] [facility] [address] [place] [address] Yael Ruth NP [address] [facility] [address] [place] [address] Prealbumin Social History Tobacco Use [...] staff should administer the PHQ-9) 0 08/17/2024 [place] Depression Scale Answer Date Recorded [place] Depression Scale Total 2 11/29/2021 The thought of harming myself has occurred to me . 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
--- OUTSIDE RECORDS SUMMARY | 2024-11-18 12:31 | XMS_ITS | Encounter Summary ---
Author Organization [facility] Healthcare Address [address] [place] [address] Care Team Providers Care Laboratory Cureman Name Role Phone Naila Sanchez DO Primary Care Provider [phone] Essence Wren MD Unavailable [phone] Mary Guillen MD Primary Care Provider Encounter Details Date Type Department Care Team (Late st Contact Info) Description 12/01/2021 Documentation [facility] [address] [place] [address] Holly Davalos RN Social History [...] staff should administer the PHQ-9) 2 08/23/2020 [place] Depression Scale Answer Date Recorded [place] Depression Scale Total 2 11/29/2021 The thought of harming myself has occurred to me . 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 06/22/2022 06/26/2022 09/20/2022 3:05 AM C DT COVID: Suspected 08/06/2022 08/06/2022 08/07/2022 3:05 AM CDT COVID: Suspected 08/06/2022 08/06/2022 08/07/2022 4:46 AM CDT documented as of this encounter Care Teams Laboratory Cureman Relationship Specialty Start Date End Date Naila Sanchez DO PCP - General Family Medicine 08/23/20 05/07/22 Mary Guillen MD [address] [address] PCP - General Internal Medicine 05/08/22 Essence Wren MD Consulting Physician Obstetrics and Gynecology 09/19/21 documented as of this encounter
--- OUTSIDE RECORDS SUMMARY | 2024-11-18 12:31 | XMS_ITS | Clinical Summary ---
Author Organization [facility] Address [address] [place] [address] Care Team Providers Care Facilities Mechanical Design Engineer Name Role Phone Essence Wren MD Unavailable [phone] Mary Guillen MD Primary Care Provider Allergies Active Allergy Reactions Criticality Noted Date Comments Azithromycin Rash Medium 01/14/2015 Codeine Other (See comments) Low 10/10/2009 Reaction: Insomnia, , Reaction: Insomnia, Hyperactive,couldnt sleep Causes insomnia and hyperactivity Latex Rash Medium 08/28/2011 Itchy , bumps , , swollen tongue Only to certain tapes Vancomycin Hives High 07/09/2016 Medications albuterol HFA (Ventolin HFA) 90 mcg/actuation inhalerIndicati ons:Moderate asthma, unspecified whether complicated, unspecified whether persistent Inhale 2 puffs every 4 (four) hours as needed for wheezing or shortness of breath 1 each 2 2 Active Additional Information Patient not taking.Reported on 02/14/2024 hydrOXYzine (ATARAX) 25 mg tablet Take 1 tablet (25 mg total) by mouth 2 (two) times a day as needed for itching 30 tablet 5 Active Zepbound 15 mg/0.5 mL pen injector ADMINISTER 15 MG UNDER THE SKIN EVERY 7 DAYS 2 mL 5 Active levothyroxine (SYNTHROID) 137 mcg tablet Take 1 tablet (137 mcg total) by mouth daily 90 tablet 1 06/06/ 025 Active lisdexamfetamin e (VYVANSE) 50 mg capsule Take 1 capsule (50 mg total) by mouth every morning 30 capsule 5 Active lisdexamfetamin e (VYVANSE) 50 mg capsule Take 1 capsule (50 mg total) by mouth every morning 30 capsule 5 025 Discontin ued(Reord er) Synthroid 137 mcg tabletIndicatio ns:Hypothyroidi sm due to Tiffany thyroiditis Take 1 tablet (137 mcg total) by mouth daily 30 tablet 6 5 025 Discontin ued(Alter buffy therapy) Active Problems Problem Noted Date Diagnosed Date [...] going for surgery in August possibly. recommend [id number]-tuqgoud famotidine (Pepcid) for two weeks for potential acid reflux. Consider a muscular origin if symptoms persist despite ERRONEOUS ENCOUNTER--DISREGARD 05/25/2024 Severe episode of recurrent major depressive disorder, without psychotic features 07/10/2022 Assessment & Plan (02/07/2023 8:29 AM CDT): Doing much better with this as she has changed jobs Assessment & Plan (07/10/2022 3:12 PM ORE DRYER): We discussed this at length. We encouraged her significantly to start therapy. She is an upcoming appointment in 2 weeks. Discussed to follow therapy at least once or twice a week. Discussed the role of medications and improving the serotonin and dopamine. Discussed using sertraline 25 mg a day with weekly follow-ups with us through [facility] about her progress. Discussed any worsening symptoms do notify us as soon as possible. Follow-up with us in 1 month. Recommend intermittent FMLA to meet with our appointments as well as the appointments with the therapist. Highly recommend in person visits at this current time. Routine physical examination 05/08/2022 Assessment & Plan (05/08/2022 3:34 PM ORE DRYER): Discussed vaccinations. Discussed diet and exercise changes. Complimented her on exercising at least 3 times a week. She is currently . Attention deficit disorder (ADD) without hyperac tivity 05/08/2022 Assessment & Plan (10/07/2024 9:12 PM CDT): Doing well on vyvanse Assessment & Plan (05/27/2024 3:23 PM ORE DRYER): Has been doing well on Vyvanse. Would [...] months. Assessment & Plan (04/03/2023 9:18 PM ORE DRYER): Currently on Vyvanse 50 mg daily. Has been tolerating it well. We discussed make an appointment in the office in next couple of months for follow-up. Needs a blood pressure check. Assessment & Plan (02/07/2023 8:32 AM CDT): We d/w vyvanse and start at 30 mg a day We d.w not to consider with these meds Assessment & Plan (05/08/2022 3:36 PM ORE DRYER): Predominantly poor focus. Definitely scored high on [...] weight Assessment & Plan (04/03/2023 9:19 PM ORE DRYER): Continue with vitamins continue with weight loss efforts Assessment & Plan (02/07/2023 8:31 AM CDT): Unfortunately gained weight and we jimmyw wegovy and use of wegovy for weight management Assessment & Plan (05/08/2022 3:35 PM ORE DRYER): She has lost about 100 lb from [...] 16wks Assessment & Plan (05/08/2022 3:35 PM ORE DRYER): Would actually recommend checking insulin levels. Dysthymia [...] exercise Assessment & Plan (05/27/2024 3:23 PM ORE DRYER): Currently on zepbound. Doing very well on [...] understanding. Assessment & Plan (04/03/2023 9:18 PM ORE DRYER): Has been taking once a week. Has [...] cons Assessment & Plan (07/10/2022 3:12 PM ORE DRYER): .BMI Follow-up includes: nutrition counseling. Assessment & Plan (05/08/2022 3:34 PM ORE DRYER): BMI discussed she is post gastric sleeve [...] levothyroxine Assessment & Plan (05/08/2022 3:35 PM ORE DRYER): Last thyroid up testing was done in [...] Encounters Date Type Department Care Team Description 10/23/2024 Telephone [facility] Endocrinology at [address] [address] Tara Blunt LPN 10/20/2024 Telephone [facility] Endocrinology at [address] [address] Tara Blunt, CHARITY 10/19/2024 Telephone [facility] Endocrinology at [address] [address] Keegan Gallegos MD Med Management ([place]) 10/16/2024 1:30 PM CDT Office Visit [facility] Endocrinology at [facility] [address], [place] [phone] Keegan Gallegos MD 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 10/07/2024 12:30 PM CDT Telemedicine [place] [id number] [address] Francisca Mcfarland NP Generalized anxiety disorder (Primary Dx); Class 1 obesity due to excess calories without serious comorbidity with body mass index (BMI) of 34.0 to 34.9 in adult; Attention deficit disorder (ADD) without hyperactivity 09/28/2024 10:40 AM CDT Lab [address] [place] [address] Low serum prealbumin 09/28/2024 Results Follow-Up [address] [phone] Francisca Mcfarland NP Prealbumin 09/25/2024 Orders Only [address] [phone] Francisca Mcfarland NP Low serum prealbumin (Primary Dx) 09/23/2024 9:30 AM CDT Telemedicine [facility] Orthopaedic Surgery [address] [place] [address] Low serum prealbumin [R79.89] (Primary Dx); Class 1 obesity due to excess calories without serious comorbidity with body mass index (BMI) of 34.0 to 34.9 in adult [E66.811, E66.09, Z68.34] 09/18/2024 Orders Only [facility] [address] [place] [phone] Francisca Mcfarland NP Low serum prealbumin (Primary Dx); Class 2 obesity due to excess calories without serious comorbidity with body mass index (BMI) of 35.0 to 35.9 in adult 09/17/2024 1:50 PM CDT Lab [address] [place] [address] Low serum prealbumin; Acquired hypothyroidism 09/17/2024 Results Follow-Up [facility] [address] [place] [phone] Francisca Mcfarland NP Prealbumin, T4, free, T3, free, TSH 09/15/2024 Orders Only [address] [address] Francisca Mcfarland NP Low serum prealbumin (Primary Dx) 09/15/2024 Orders Only [address] [address] Francisca Mcfarland NP 09/02/2024 Results Follow-Up [address] [address] Francisca Mcfarland NP Prealbumin, T4, free, TSH, T3, free 09/02/2024 Orders Only [address] [address] Francisca Mcfarland NP Acquired hypothyroidism (Primary Dx) 08/31/2024 3:10 PM CDT Lab [address] [address] Low serum prealbumin; Hypothyroidism, unspecified type 08/28/2024 Orders Only [address] [place] [phone] Francisca Mcfarland NP Low serum prealbumin (Primary Dx) 08/23/2024 Results Follow-Up [facility] [address] [place] [phone] Mary Guillen MD Stress Treadmill Test 08/21/2024 11:30 AM CDT Ancillary Procedure [facility] Cardiology [address] [place] [address] Other chest pain 08/21/2024 11:15 AM CDT Lab [facility] [address] [place] [phone] Vitamin B12 deficiency; Vitamin D deficiency; Preoperative clearance 08/21/2024 Results Follow-Up [facility] [address] [place] [phone] Mary Guillen MD Vitamin B12, Ferritin, Iron profile w/ IBC, Additional followed-up results: 6 08/21/2024 Orders Only [facility] [address] [place] [phone] Francisca Mcfarland NP Preoperative clearance (Primary Dx); Vitamin D deficiency; Vitamin B12 deficiency 08/20/2024 Telephone [facility] [address] [place] [address] Mary Guillen MD [facility] from Last 3 Months Immunizations Immunization Administration Dates Next Due Hep B, Adolescent or Pediatric 01/03/2000,1999 Influenza, Quadrivalent, Spl it, Preservative Free, Intramuscular 07/30/2016,02/03/2016,04/01/2015 Influenza, Trivalent, IM (MDV) 02/17/2018,2016 Influenza, Unspecified 04/01/2023(Deferr ed: Patient Refused),02/17/2023(Deferred: Patient Refused),02/18/2020,02/17/2019,10/01/2 018 MMR 12/10/2014,11/10/2014 PPD TEST 11/10/2014,10/26/2014 Tdap [...] staff should administer the PHQ-9) 0 10/16/2024 Atkins Depression Scale Answer Date Recorded Atkins Depression Scale Total 2 11/29/2021 The thought of harming myself has occurred to me . Never 11/29/2021 Comments No Sex and Gender Information Value Date Recorded Sex Assigned at Not on file Legal Sex Female 11:39 PM ORE DRYER Gender Identity Female 03/08/2021 3:50 PM CDT [...] to Progress in First Stage,Incisional infection Delivery Location:[facility] Comments:No observed a linh 2021 Term 39w 0d 0h 01m 0h 01m 3.345 kg (7 lb 6 oz) F CS-LT ranv Spinal N Livin g 8 9 Meganhaylie hernandez, Essence swartz MD Complications:None Delivery Location:This [facility] it ([facility] L AND D PROCEDURE) Last Filed Vital [...] Due Date Last Done Comments Influenza Vaccine (#1) 2025 , 02/17/2019, 02/17/2018, Additional history exists Regular Well Visit/Exam 18-64 02/13/2025 02/14/2024, 01/23/2023, 05/08/2022, Additional history exists Depression Screening 10/16/2025 10/16/2024, 08/17/2024, 05/27/2024, Additional history exists Cervical Cancer Screening 01/23/2026 01/23/2023, 10/2022 DTaP/Tdap/Td Vaccine (7 - Td or Tdap) 09/26/2031 09/25/2021, 10/18/2009, 01/16/1993, Additional history exists Hepatitis B Screening Completed 01/03/2000, 000 Varicella Vaccines Completed 12/10/2014, 0 11/10/2014, 11/10/2014 Hepatitis C Screening Completed 05/17/2021 HPV Vaccines Aged Out No longer eligi ble based on patient's age to complete this topic Pneumococcal vaccine <65 Aged Out No longer eligible based on patient's age to complete this topic Medical Devices Implanted Type Area Auditor Appraiser Device Identifier Shelf Expiration Date Model / Serial / Lot Anctu Seprafilm 6x5in Barrier Adhesion Sterile Disposable Latex Free [id number] - [id number] Implanted:Qty: 1 on 11/27/2021 by Essence Wren MD at [facility] N/A: Abdomen Anctu [id number] 01/20/2024 [id number] / / [id number] Procedures Procedure Name Priority Date/Time Associated Diagnosis [...] 08/21/2024 11:19 AM CDT Vitamin B12 deficiency HIGH RISK HPV DNA DETECTION WITH GENOTYPING Routine 01/23/2023 9:48 AM CDT Encounter for well woman exam with routine gynecological exam HEPATITIS C ANTIBODY Routine 05/17/2021 12:21 PM ORE DRYER care, subsequent in first trimester from Last 3 Months or Most Recently Relevant to Health Maintenance Results * (ABNORMAL) Prealbumin (09/28/2024 10:43 AM CDT) Prealbumin 13.9(L) 20.0 - 40.0 mg/dL Blood 09/28/2024 10:4 3 AM CDT 09/28/2024 1:56 PM CDT us Francisca Mcfarland NP LAB BLOOD ORDERABLES Final Re sult DRE [facility] [address] [place] [address] * T3, free (09/17/2024 1:53 PM CDT) [facility] Free T3 2.8 2.0 - 4.4 pg/mL Blood 09/17/2024 1:53 PM CDT 09/17/2024 3:55 PM CDT Francisca Mcfarland NP LAB BLOOD ORDERABLES Final Re sult Performing Organization Address City/[facility]/ZIP Co de Phone Number [facility] [address] [facility] [place] [address] * (ABNORMAL) TSH (09/17/2024 1:53 PM CDT) [facility] Thyroid Stimulating Hormone 4.96(H) 0.30 - 4.20 mcIUnit/mL Blood 09/17/2024 1:53 PM CDT 09/17/2024 3:55 PM CDT Result [facility] Francisca Mcfarland NP LAB BLOOD ORDERABLES Final Re sult Performing Organization Address [facility] Co de Phone Number [facility] [address] [facility] [place] [address] * T4, free (09/17/2024 1:53 PM CDT) [facility] Free T4 1.29 0.90 - 1.70 ng/dL Blood 09/17/2024 1:53 PM CDT 09/17/2024 3:55 PM CDT Francisca Mcfarland NP LAB BLOOD ORDERABLES Final Re sult Performing Organization Address [facility] Co de Phone Number [facility] [address] [facility] [place] [address] * (ABNORMAL) Prealbumin (09/17/2024 1:53 PM CDT) [facility] Prealbumin 13.4(L) 20.0 - 40.0 mg/dL Blood 09/17/2024 1:53 PM CDT 09/17/2024 3:55 PM CDT Francisca Mcfarland SENIOR LANDSCAPE ARCHITECT LAB BLOOD ORDERABLES Final Re sult Performing Organization Address City/[facility]/ZIP Co de Phone Number [facility] [address] [facility] [place], [place] [id number] * T3, free (08/31/2024 3:10 PM CDT) Pathologist [facility] Free T3 2.9 2.0 - 4.4 pg/mL Blood 08/31/2024 3:10 PM CDT 08/31/2024 6:56 PM CDT Francisca Mcfarland NP LAB BLOOD ORDERABLES Final Re sult Performing Organization Address [facility] Co de Phone Number [facility] [address] Department [place], [place] [phone] * TSH (08/31/2024 3:10 PM CDT) [facility] Thyroid Stimulating Hormone 3.99 0.30 - 4.20 mcIUnit/mL Blood 08/31/2024 3:10 PM CDT 08/31/2024 6:56 PM CDT Francisca Mcfarland NP LAB BLOOD ORDERABLES Final Re sult Performing Organization Address City/[facility] Co de Phone Number [facility] [address] [facility] [place], [place] [id number] * T4, free (08/31/2024 3:10 PM CDT) Pathologist [facility] Free T4 1.18 0.90 - 1.70 ng/dL Blood 08/31/2024 3:10 PM CDT 08/31/2024 6:56 PM CDT Francisca Mcfarland SENIOR LANDSCAPE ARCHITECT LAB BLOOD ORDERABLES Final Re sult Performing Organization Address City/[facility]/ZIP Co de Phone Number DRE [facility] [address] [facility] [place] [address] * (ABNORMAL) Prealbumin (08/31/2024 3:10 PM CDT) Prealbumin 10.8(L) 20.0 - 40.0 mg/dL Blood 08/31/2024 3:10 PM CDT 08/31/2024 6:56 PM CDT Francisca Mcfarland SENIOR LANDSCAPE ARCHITECT LAB BLOOD ORDERABLES Final Re sult Performing Organization Address [facility] Co de Phone Number DRE [facility] [address] [facility] [place] [address] * Stress Treadmill Test (08/21/2024 12:15 PM [...] Performed By: Brian Simmons RN. Krista Ruiz [facility]. Procedure Data: Protocol - Dany Protocol. Exercise Time: 08:57 Resting HR 96 bpm Peak HR: 190 bpm Predicted Maximal HR 184 bpm Target HR: 156 bpm Percent Max Predicted HR Achieved: 103 % Baseline BP: 117/85 Peak BP: 134/71 METS achieved: 10.3 Rate-Pressure Product: 08332 BPM*mmHg Max ST: Angina Index (0=No angina [...] age. Electronically Signed By: Kelton Cadet MD [facility] 08/22/2024 1:27:04 PM CDT Procedure Note Kelton [...] Performed By: Brian Simmons RN. Krista Ruiz [facility]. Procedure Data: Protocol - Dany Protocol. Exercise Time: 08:57 Resting HR 96 bpm Peak HR: 190 bpm Predicted Maximal HR 184 bpm Target HR: 156 bpm Percent Max Predicted HR Achieved: 103 % Baseline BP: 117/85 Peak BP: 134/71 METS achieved: 10.3 Rate-Pressure Product: 37896 BPM*mmHg Max ST: Angina Index (0=No angina [...] age. Electronically Signed By: Kelton Cadet MD [facility] 08/22/2024 1:27:04 PM CDT Francisca Mcfarland NP [...] 9 AM CDT 08/21/2024 2:31 PM CDT us Francisca Mcfarland NP LAB BLOOD ORDERABLES Final Re sult [facility] [address] [place] [address] * Differential, auto (08/21/2024 11:19 AM CDT) Neutrophil abs 5.75 1.50 - 6.50 K/cumm Imm gran abs 0.01 0.00 - 0.10 K/cumm [facility] Lymphocyte abs 1.55 0.80 - 3.30 K/cumm [facility] Monocyte abs 0.66 0.20 - 0.80 K/cumm [facility] Eosinophil abs 0.03 0.00 - 0.50 K/cumm [facility] Basophil abs 0.07 0.00 - 0.10 K/cumm [facility] Neutrophil pct 71.2 % [facility] Comment: Interpretive Data Percent cell count reference ranges are not reported, since discordance with absolute values may lead to misinterpretation of CBC data. Current Interpretive Data was last revised on 2017. Imm gran pct 0.1 % [facility] Comment: Interpretive Data Percent cell count reference ranges are not reported, since discordance with absolute values may lead to misinterpretation of CBC data. Current Interpretive Data was last revised on 2017. Lymphocyte pct 19.2 % [facility] Comment: Interpretive Data Percent cell count reference ranges are not reported, since discordance with absolute values may lead to misinterpretation of CBC data. Current Interpretive Data was last revised on 2017. Monocyte pct 8.2 % [facility] Comment: Interpretive Data Percent cell count reference ranges are not reported, since discordance with absolute values may lead to misinterpretation of CBC data. Current Interpretive Data was last revised on 2017. Eosinophil pct 0.4 % [facility] Comment: Interpretive Data Percent cell count reference ranges are not reported, since discordance with absolute values may lead to misinterpretation of CBC data. Current Interpretive Data was last revised on 2017. Basophil pct 0.9 % [facility] Comment: Interpretive Data Percent cell count reference ranges are not reported, since discordance with absolute values may lead to misinterpretation of CBC data. Current Interpretive Data was last revised on 2017. Blood 08/21/2024 11:1 9 AM CDT 08/21/2024 1:50 PM CDT Francisca Mcfarland NP LAB BLOOD ORDERABLES Final Re sult Performing Organization Address [facility]/ZIP Co de Phone Number [facility] [address] [place] [address] * Iron profile w/ IBC (08/21/2024 11:19 AM CDT) Pathologist [facility] Iron 89 35 - 145 mcg/dL TIBC 290 250 - 400 mcg/dL [facility] Transferrin saturation 31 20 - 50 % [facility] Blood 08/21/2024 11:1 9 AM CDT 08/21/2024 2:31 PM CDT Francisca Mcfarland NP LAB BLOOD ORDERABLES Final Re sult Performing Organization Address City/[facility]/ZIP Co de Phone Number [facility] [address] [place] [address] * CBC with auto differential (08/21/2024 11:19 AM CDT) WBC 8.07 3.80 - 9.90 K/cumm Hgb 13.3 11.9 - 15.5 g/dL [facility] Hct 40.8 35.6 - 45.5 % [facility] Plt 391 150 - 400 K/cumm [facility] MPV 10.3 9.1 - 12.3 fL [facility] RBC 4.50 3.90 - 5.20 M/cumm [facility] MCV 90.7 81.3 - 96.4 fL [facility] MCH 29.6 27.1 - 33.3 pg [facility] MCHC 32.6 32.3 - 35.7 g/dL [facility] RDW CV 13.2 11.1 - 14.9 % [facility] RDW SD 43.6 35.7 - 48.1 fL [facility] NRBC abs 0.00 0.00 - 0.01 K/cumm [facility] Blood 08/21/2024 11:1 9 AM CDT 08/21/2024 1:50 PM CDT Francisca Mcfarland NP LAB BLOOD ORDERABLES Final Re sult Performing Organization Address City/[facility]/ZIP Co de Phone Number [facility] [address] [facility] [place] [address] * (ABNORMAL) Vitamin D 25 hydroxy (08/21/2024 11:19 AM CDT) [facility] Vitamin D 25-OH 28(L) 30 - 80 ng/mL Blood 08/21/2024 11:1 9 AM CDT 08/21/2024 2:31 PM CDT Francisca Mcfarland NP LAB BLOOD ORDERABLES Final Re sult [facility] [address] [place] [address] * (ABNORMAL) Prealbumin (08/21/2024 11:19 AM CDT) [facility] Prealbumin 11.9(L) 20.0 - 40.0 mg/dL Blood 08/21/2024 11:1 9 AM CDT 08/21/2024 2:31 PM CDT Francisca Mcfarland SENIOR LANDSCAPE ARCHITECT LAB BLOOD ORDERABLES Final Re sult Performing Organization Address [facility] Co de Phone Number [facility]IL[facility] [address] [facility] [place] [address] * Ferritin (08/21/2024 11:19 AM CDT) [facility] Ferritin 37 15 - 150 ng/mL Blood 08/21/2024 11:1 9 AM CDT 08/21/2024 2:31 PM CDT Francisca Mcfarland SENIOR LANDSCAPE ARCHITECT LAB BLOOD ORDERABLES Final Re sult Performing Organization Address [facility] Co de Phone Number [facility] [address] [facility] [place] [address] * Vitamin B12 (08/21/2024 11:19 AM CDT) [facility] Vitamin B12 375 230 - 1,250 pg/mL Blood 08/21/2024 11:1 9 AM CDT 08/21/2024 2:31 PM CDT Francisca Mcfarland NP LAB BLOOD ORDERABLES Final Re sult Performing Organization Address [facility] Co de Phone Number [facility] [address] [facility] [place] [address] * (ABNORMAL) Comprehensive metabolic panel (08/21/2024 11:19 AM CDT) [facility] Sodium 140 135 - 145 mmol/L Potassium, pl 4.0 3.3 - 4.9 mmol/L [facility] Chloride 105 97 - 110 mmol/L [facility] CO2 21(L) 22 - 32 mmol/L [facility] Anion gap 14 2 - 15 mmol/L [facility] BUN 7 6 - 25 mg/dL [facility] Creatinine 0.71 0.60 - 1.10 mg/dL [facility] Glucose 90 70 - 199 mg/dL [facility] Comment: Interpretive Data Fasting glucose [...] 2022. Calcium 9.1 8.5 - 10.3 mg/dL [facility] Bilirubin, total 0.9 0.1 - 1.2 mg/dL [facility] Protein, pl 7.1 6.5 - 8.5 g/dL [facility] Albumin 4.4 3.5 - 5.0 g/dL [facility] Alk phos 67 40 - 130 Units/L [facility] ALT 10 7 - 45 Units/L [facility] AST 16 10 - 45 Units/L [facility] Blood 08/21/2024 11:1 9 AM CDT 08/21/2024 2:31 PM CDT Francisca Mcfarland NP LAB BLOOD ORDERABLES Final Re sult [facility] [address] [place] [address] * High Risk HPV DNA Detection with Genotyping (Molecular component) (01/23/2023 9:48 AM CDT) HPV HR 16 Not Detected Not Detected [facility] HPV HR 18 Not Detected Not Detected [facility] HPV HR Non 16/18 Not Detected Not Detected [facility] Comment: Interpretive Data Nucleic acid [...] this test have been verified by the [facility]. Correlate with separately reported cytology results, as applicable. Interpretive data last revised 22 Endocervical 01/23/2023 9:48 AM CDT 01/23/2023 5:18 PM CDT N[facility]ative [facility]/26/2023 7:17 PM CDT Clinical history and diagnosis->Well Woman Number of vials->1 Testing type->Screening Last menstrual period (date if known)->01/06/23 Yamila URIOSTEGUI LAB BODY FLUIDS AND STOOL S ORDERABLES Final Result [address] [place] [address] * Hepatitis C antibody (05/17/2021 12:21 PM ORE DRYER) Hep C Ab Nonreactive Nonreactive [facility] Comment: Interpretive Data Nonreactive: Antibodies to [...] last revised on 2019. Testing performed by: [facility], [facility] [facility], [place]., [address] Blood 05/17/2021 12:2 1 PM ORE DRYER 05/17/2021 2:43 PM ORE DRYER us Essence Wren MD LAB MICROBIOLOGY - GEN ERAL ORDERABLES Final Result [facility] [id number] [facility] [place] [address] from Last 3 Months or Most Recently Relevant to Health Maintenance Insurance [employer] Address: [facility] [id number] [place] [address] [employer] Advance Directives For more information, please contact: [phone] * Full Code (Latest Code Status on File) Date Activated Date Inactivated Comments 11/27/2021 9:43 AM 11/29/2021 10:23 PM * Full Code Date Activated Date Inactivated Comments 11/27/2021 4:37 AM 11/27/2021 9:43 AM Full CPR in case of cardiopulmonary arrest Care Teams Facilities Mechanical Design Engineer Relationship Specialty Start Date End Date Mary Guillen MD [address] [facility] [address] [place] [address] PCP - General Internal Medicine 05/08/22 Essence Wren MD Consulting Physician Obstetrics and Gynecology 09/19/21
--- OUTSIDE RECORDS SUMMARY | 2024-11-18 12:31 | XMS_ITS | Referral Summary ---
Author Organization [facility] Address [address] [place] [address] Care Team Providers Care Sole Conditioner Name Role Phone Essence Wren MD Unavailable [phone] Mary Guillen MD Primary Care Provider Encounters Date Type Department Care Team Description 10/23/2024 Telephone [facility] Endocrinology at [address] [place] [phone] Tara Blunt, CHARITY 10/20/2024 Telephone [facility] Endocrinology at [address] [place] [phone] Tara Blunt, CHARITY 10/19/2024 Telephone [facility] Endocrinology at [address] [place] [phone] Keegan Gallegos MD Med Management ([place]) 10/16/2024 1:30 PM CDT Office Visit [facility] Endocrinology at [address] [place] [phone] Keegan Gallegos MD 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 [address] [facility] [place] [address] [place] [address] Francisca Mcfarland NP Prealbumin 09/28/2024 10:40 AM CDT Lab [facility] [address] [facility] [place] [address] [place] [phone] Low serum prealbumin 09/25/2024 Orders Only [address] [place] [address] Francisca Mcfarland NP Low serum prealbumin (Primary Dx) 09/23/2024 9:30 AM CDT Telemedicine [facility] Orthopaedic Surgery [address] [facility] [address] [place] [address] Low serum prealbumin [R79.89] (Primary Dx); Class 1 obesity due to excess calories without serious comorbidity with body mass index (BMI) of 34.0 to 34.9 in adult [E66.811, E66.09, Z68.34] 09/18/2024 Orders Only [facility] Medicine [address] [facility] [place] [address] [place] [address] Francisca Mcfarland NP Low serum prealbumin (Primary Dx); Class 2 obesity due to excess calories without serious comorbidity with body mass index (BMI) of 35.0 to 35.9 in adult 09/17/2024 Results Follow-Up [facility] [address] [facility] [place] [address] [place] [address] Francisca Mcfarland NP Prealbumin, T4, free, T3, free, TSH 09/17/2024 1:50 PM CDT Lab [address] [place] [address] Low serum prealbumin; Acquired hypothyroidism 09/15/2024 Orders Only [address] [place] [phone] Francisca Mcfarland NP Low serum prealbumin (Primary Dx) 09/15/2024 Orders Only [address] [place] [phone] Francisca Mcfarland NP 09/02/2024 Results Follow-Up [address] [phone] Francisca Mcfarland NP Prealbumin, T4, free, TSH, T3, free 09/02/2024 Orders Only [address] [place] [phone] Francisca Mcfarland NP Acquired hypothyroidism (Primary Dx) 08/31/2024 3:10 PM CDT Lab [address] [phone] Low serum prealbumin; Hypothyroidism, unspecified type 08/28/2024 Orders Only [place] [id number] [facility] [place] [address] [place] [phone] Francisca Mcfarland NP Low serum prealbumin (Primary Dx) 08/23/2024 Results Follow-Up [address] [phone] Mary Guillen MD Stress Treadmill Test 08/21/2024 Results Follow-Up [address] [place] [phone] Mary Guillen MD Vitamin B12, Ferritin, Iron profile w/ IBC, Additional followed-up results: 6 08/21/2024 11:15 AM CDT Lab [facility] [address] [facility] [place] [address] [place] [phone] Vitamin B12 deficiency; Vitamin D deficiency; Preoperative clearance 08/21/2024 Orders Only [facility] [address] [facility] [place] [address] [place] [phone] Francisca Mcfarland NP Preoperative clearance (Primary Dx); Vitamin D deficiency; Vitamin B12 deficiency 08/21/2024 11:30 AM CDT Ancillary Procedure [facility] Cardiology [address] [facility] [place] [address] [place] [address] Other chest pain 08/20/[address] [facility] [address] [facility] [place] [address] [place] [address] Mary Guillen MD FLBERTHA from Last 3 Months Allergies Active Allergy [...] total) by mouth daily 90 tablet 1 5 025 Active lisdexamfetamin e (VYVANSE) 50 mg [...] going for surgery in August possibly. recommend [id number] famotidine (Pepcid) for two weeks for potential acid reflux. Consider a muscular origin if symptoms persist despite ERRONEOUS ENCOUNTER--DISREGARD 05/25/2024 Severe episode of recurrent major depressive disorder, without psychotic features 07/10/2022 Assessment & Plan (02/07/2023 8:29 AM CDT): Doing much better with this as she has changed jobs Assessment & Plan (07/10/2022 3:12 PM MEDICATION TECHNICIAN): We discussed this at length. We encouraged her significantly to start therapy. She is an upcoming appointment in 2 weeks. Discussed to follow therapy at least once or twice a week. Discussed the role of medications and improving the serotonin and dopamine. Discussed using sertraline 25 mg a day with weekly follow-ups with us through [employer] about her progress. Discussed any worsening symptoms do notify us as soon as possible. Follow-up with us in 1 month. Recommend intermittent FMLA to meet with our appointments as well as the appointments with the therapist. Highly recommend in person visits at this current time. Routine physical examination 05/08/2022 Assessment & Plan (05/08/2022 3:34 PM MEDICATION TECHNICIAN): Discussed vaccinations. Discussed diet and exercise changes. Complimented her on exercising at least 3 times a week. She is currently . Attention deficit disorder (ADD) without hyperac tivity 05/08/2022 Assessment & Plan (10/07/2024 9:12 PM CDT): Doing well on vyvanse Assessment & Plan (05/27/2024 3:23 PM MEDICATION TECHNICIAN): Has been doing well on Vyvanse. Would [...] months. Assessment & Plan (04/03/2023 9:18 PM MEDICATION TECHNICIAN): Currently on Vyvanse 50 mg daily. Has been tolerating it well. We discussed make an appointment in the office in next couple of months for follow-up. Needs a blood pressure check. Assessment & Plan (02/07/2023 8:32 AM CDT): We d/w vyvanse and start at 30 mg a day We d.w not to consider with these meds Assessment & Plan (05/08/2022 3:36 PM MEDICATION TECHNICIAN): Predominantly poor focus. Definitely scored high on [...] weight Assessment & Plan (04/03/2023 9:19 PM MEDICATION TECHNICIAN): Continue with vitamins continue with weight loss efforts Assessment & Plan (02/07/2023 8:31 AM CDT): Unfortunately gained weight and we d.w wegovy and use of wegovy for weight management Assessment & Plan (05/08/2022 3:35 PM MEDICATION TECHNICIAN): She has lost about 100 lb from [...] 16wks Assessment & Plan (05/08/2022 3:35 PM MEDICATION TECHNICIAN): Would actually recommend checking insulin levels. Dysthymia [...] exercise Assessment & Plan (05/27/2024 3:23 PM MEDICATION TECHNICIAN): Currently on zepbound. Doing very well on [...] understanding. Assessment & Plan (04/03/2023 9:18 PM MEDICATION TECHNICIAN): Has been taking once a week. Has [...] .BMI Follow-up includes: nutrition counseling. We d/w matthew and ivan d.w pros and cons Assessment & Plan (07/10/2022 3:12 PM MEDICATION TECHNICIAN): .BMI Follow-up includes: nutrition counseling. Assessment & Plan (05/08/2022 3:34 PM MEDICATION TECHNICIAN): BMI discussed she is post gastric sleeve [...] levothyroxine Assessment & Plan (05/08/2022 3:35 PM MEDICATION TECHNICIAN): Last thyroid up testing was done in [...] staff should administer the PHQ-9) 0 10/16/2024 [place] Depression Scale Answer Date Recorded [place] Depression Scale Total 2 11/29/2021 The thought of harming myself has occurred to me . Never 11/29/2021 Comments No Sex and Gender Information Value Date Recorded Sex Assigned at Not on file Legal Sex Female 11:39 PM MEDICATION TECHNICIAN Gender Identity Female 03/08/2021 3:50 PM CDT [...] on file Medical Devices Implanted Type Area Trade Show Manager Device Identifier Shelf Expiration Date Model / Serial / Lot Convio Seprafilm 6x5in Barrier Adhesion Sterile Disposable Latex Free [id number] - [id number] Implanted:Qty: 1 on 11/27/2021 by Essence Wren MD at [facility] N/A: Abdomen [employer]ogen [facility] [id number] 01/20/2024 [id number] / / [id number] Procedures Procedure Name Priority Date/Time Associated Diagnosis [...] HEPATITIS C ANTIBODY Routine 05/17/2021 12:21 PM MEDICATION TECHNICIAN care, subsequent in first trimester from Last 3 Months or Most Recently Relevant to Health Maintenance Results * (ABNORMAL) Prealbumin (09/28/2024 10:43 AM CDT) Prealbumin 13.9(L) 20.0 - 40.0 mg/dL Blood 09/28/2024 10:4 3 AM CDT 09/28/2024 1:56 PM CDT Francisca Mcfarland NP LAB BLOOD ORDERABLES Final Re sult [facility] [address] [place] [address] * T3, free (09/17/2024 1:53 PM CDT) Free T3 2.8 2.0 - 4.4 pg/mL Blood 09/17/2024 1:53 PM CDT 09/17/2024 3:55 PM CDT Hiralben Mcfarland PRODUCTION CONTROL ANALYST LAB BLOOD ORDERABLES Final Re sult Performing Organization Address [facility]/ZIP Co de Phone Number [facility] [address] [facility] [place] [address] * (ABNORMAL) TSH (09/17/2024 1:53 PM CDT) Thyroid Stimulating Hormone 4.96(H) 0.30 - 4.20 mcIUnit/mL Blood 09/17/2024 1:53 PM CDT 09/17/2024 3:55 PM CDT Francisca Mcfarland NP LAB BLOOD ORDERABLES Final Re sult Performing Organization Address [facility] Co de Phone Number [facility] [address] [facility] [place] [address] * T4, free (09/17/2024 1:53 PM CDT) Free T4 1.29 0.90 - 1.70 ng/dL Blood 09/17/2024 1:53 PM CDT 09/17/2024 3:55 PM CDT Francisca Mcfarland NP LAB BLOOD ORDERABLES Final Re sult Performing Organization Address [facility] Co de Phone Number [facility] [address] [facility] [place] [address] * (ABNORMAL) Prealbumin (09/17/2024 1:53 PM CDT) Prealbumin 13.4(L) 20.0 - 40.0 mg/dL Blood 09/17/2024 1:53 PM CDT 09/17/2024 3:55 PM CDT Francisca Mcfarland NP LAB BLOOD ORDERABLES Final Re sult Performing Organization Address [facility] Co de Phone Number [facility] [address] [place] [address] * T3, free (08/31/2024 3:10 PM CDT) Pathologist [facility] Free T3 2.9 2.0 - 4.4 pg/mL Blood 08/31/2024 3:10 PM CDT 08/31/2024 6:56 PM CDT Francisca Mcfarland PRODUCTION CONTROL ANALYST LAB BLOOD ORDERABLES Final Re sult [facility] [address] [place] [address] * TSH (08/31/2024 3:10 PM CDT) [facility] Thyroid Stimulating Hormone 3.99 0.30 - 4.20 mcIUnit/mL Blood 08/31/2024 3:1 0 PM CDT 08/31/2024 6:56 PM CDT Francisca Mcfarland NP LAB BLOOD ORDERABLES Final Re sult Performing Organization Address [facility] Co de Phone Number [facility] [address] [place] [place] [address] * T4, free (08/31/2024 3:10 PM CDT) [facility] Free T4 1.18 0.90 - 1.70 ng/dL Blood 08/31/2024 3:10 PM CDT 08/31/2024 6:56 PM CDT Francisca Mcfarland PRODUCTION CONTROL ANALYST LAB BLOOD ORDERABLES Final Re sult Performing Organization Address [facility] Co de Phone Number [facility] [address] [address] * (ABNORMAL) Prealbumin (08/31/2024 3:10 PM CDT) Prealbumin 10.8(L) 20.0 - 40.0 mg/dL Blood 08/31/2024 3:10 PM CDT 08/31/2024 6:56 PM CDT us Francisca Mcfarland NP LAB BLOOD ORDERABLES Final Re sult [facility] [address] Department [place] [address] * Stress Treadmill Test (08/21/2024 12:15 PM CDT) Anatomical Region Laterality Modality Nuclear Medicine 08/21/2024 11:3 0 AM CDT Narrative 08/22/2024 1:33 PM CDT EXERCISE STRESS Patient Name: MELL NOBLES L : 1985 Study Date: 08/21/2024 11:30:00 AM Gender: F Tech: Brian Smimons RN Ref Provider: FRANCISCA MCFARLAND Height(Cm): 165 BSA: 2.11 Weight(Kg): 97 Order Provider: FRANCISCA MCFARLAND PROCEDURES: Stress Report: Treadmill stress Exam. INDICATIONS: R07.89 Other chest pain. FINDINGS: Performed By: Brian Simmons RN. MELVIN Mayers. Procedure Data: Protocol - Dany Protocol. Exercise Time: 08:57 Resting HR 96 bpm Peak HR: 190 bpm Predicted Maximal HR 184 bpm Target HR: 156 bpm Percent Max Predicted HR Achieved: 103 % Baseline BP: 117/85 Peak BP: 134/71 METS achieved: 10.3 Rate-Pressure Product: 19261 BPM*mmHg Max ST: Angina Index (0=No angina [...] age. Electronically Signed By: Kelton Cadet MD [facility] 08/22/2024 1:27:04 PM CDT Procedure Note Kelton Cadet MD - 08/22/2024 EXERCISE STRESS Patient Name: MELL NOBLES L : 1985 Study Date: 08/21/2024 11:30:00 AM Gender: F Tech: Brian Simmons RN Ref Provider: FRANCISCA MCFARLAND Height(Cm): 165 BSA: 2.11 Weight(Kg): 97 Order Provider: FRANCISCA MCFARLAND PROCEDURES: Stress Report: Treadmill stress Exam. INDICATIONS: R07.89 Other chest pain. FINDINGS: Performed By: Brian Simmons RN. MELVIN Mayers. Procedure Data: Protocol - Dany Protocol. Exercise Time: 08:57 Resting HR 96 bpm Peak HR: 190 bpm Predicted Maximal HR 184 bpm Target HR: 156 bpm Percent Max Predicted HR Achieved: 103 % Baseline BP: 117/85 Peak BP: 134/71 METS achieved: 10.3 Rate-Pressure Product: 67619 BPM*mmHg Max ST: Angina Index (0=No angina [...] age. Electronically Signed By: Kelton Cadet MD [facility] 08/22/2024 1:27:04 PM CDT Francisca Mcfarland NP [...] 9 AM CDT 08/21/2024 2:31 PM CDT Zamzamhemalatha Mcgheerissa TELLEZ LAB BLOOD ORDERABLES Final Re sult [facility] [address] Department [place] [address] * Differential, auto (08/21/2024 11:19 AM CDT) Neutrophil abs 5.75 1.50 - 6.50 K/cumm Imm gran abs 0.01 0.00 - 0.10 K/cumm [facility] Lymphocyte abs 1.55 0.80 - 3.30 K/cumm [facility] Monocyte abs 0.66 0.20 - 0.80 K/cumm [facility] Eosinophil abs 0.03 0.00 - 0.50 K/cumm [facility] Basophil abs 0.07 0.00 - 0.10 K/cumm [facility] Neutrophil pct 71.2 % [facility] Comment: Interpretive Data Percent cell count reference ranges are not reported, since discordance with absolute values may lead to misinterpretation of CBC data. Current Interpretive Data was last revised on 2017. Imm gran pct 0.1 % [facility] Comment: Interpretive Data Percent cell count reference ranges are not reported, since discordance with absolute values may lead to misinterpretation of CBC data. Current Interpretive Data was last revised on 2017. Lymphocyte pct 19.2 % [facility] Comment: Interpretive Data Percent cell count reference ranges are not reported, since discordance with absolute values may lead to misinterpretation of CBC data. Current Interpretive Data was last revised on 2017. Monocyte pct 8.2 % [facility] Comment: Interpretive Data Percent cell count reference ranges are not reported, since discordance with absolute values may lead to misinterpretation of CBC data. Current Interpretive Data was last revised on 2017. Eosinophil pct 0.4 % [facility] Comment: Interpretive Data Percent cell count reference ranges are not reported, since discordance with absolute values may lead to misinterpretation of CBC data. Current Interpretive Data was last revised on 2017. Basophil pct 0.9 % [facility] Comment: Interpretive Data Percent cell count reference ranges are not reported, since discordance with absolute values may lead to misinterpretation of CBC data. Current Interpretive Data was last revised on 2017. Blood 08/21/2024 11:1 9 AM CDT 08/21/2024 1:50 PM CDT Francisca Mcfarland NP LAB BLOOD ORDERABLES Final Re sult Performing Organization Address [facility]/ZIP Co de Phone Number [facility] [address] [place] [address] * Iron profile w/ IBC (08/21/2024 11:19 AM CDT) Pathologist [facility] Iron 89 35 - 145 mcg/dL TIBC 290 250 - 400 mcg/dL [facility] Transferrin saturation 31 20 - 50 % [facility] Blood 08/21/2024 11:1 9 AM CDT 08/21/2024 2:31 PM CDT Francisca Mcfarland PRODUCTION CONTROL ANALYST LAB BLOOD ORDERABLES Final Re sult Performing Organization Address [facility] de Phone Number [facility] [address] [facility] [place], [place] [id number] * CBC with auto differential (08/21/2024 11:19 AM CDT) Pathologist [facility] WBC 8.07 3.80 - 9.90 K/cumm Hgb 13.3 11.9 - 15.5 g/dL [facility] Hct 40.8 35.6 - 45.5 % [facility] Plt 391 150 - 400 K/cumm [facility] MPV 10.3 9.1 - 12.3 fL [facility] RBC 4.50 3.90 - 5.20 M/cumm [facility] MCV 90.7 81.3 - 96.4 fL [facility] MCH 29.6 27.1 - 33.3 pg [facility] MCHC 32.6 32.3 - 35.7 g/dL [facility] RDW CV 13.2 11.1 - 14.9 % [facility] RDW SD 43.6 35.7 - 48.1 fL [facility] NRBC abs 0.00 0.00 - 0.01 K/cumm [facility] Blood 08/21/2024 11:1 9 AM CDT 08/21/2024 1:50 PM CDT Francisca Mcfarland NP LAB BLOOD ORDERABLES Final Re sult Performing Organization Address [facility] Co de Phone Number [facility] [address] [facility] [place], [place] [id number] * (ABNORMAL) Vitamin D 25 hydroxy (08/21/2024 11:19 AM CDT) Pathologist [facility] Vitamin D 25-OH 28(L) 30 - 80 ng/mL Blood 08/21/2024 11:1 9 AM CDT 08/21/2024 2:31 PM CDT Francisca Mcfarland NP LAB BLOOD ORDERABLES Final Re sult Performing Organization Address [facility] de Phone Number [facility] [address] [facility] [place] [address] * (ABNORMAL) Prealbumin (08/21/2024 11:19 AM CDT) Pathologist [facility] Prealbumin 11.9(L) 20.0 - 40.0 mg/dL Blood 08/21/2024 11:1 9 AM CDT 08/21/2024 2:31 PM CDT Francisca Mcfarland NP LAB BLOOD ORDERABLES Final Re sult Performing Organization Address [facility] Co de Phone Number [facility] [address] [facility] [place] [address] * Ferritin (08/21/2024 11:19 AM CDT) Pathologist [facility] Ferritin 37 15 - 150 ng/mL Blood 08/21/2024 11:1 9 AM CDT 08/21/2024 2:31 PM CDT [facility] PRODUCTION CONTROL ANALYST LAB BLOOD ORDERABLES Final Re sult Performing Organization Address [facility] de Phone Number [facility] [address] [facility] [place] [address] * Vitamin B12 (08/21/2024 11:19 AM CDT) [facility] Vitamin B12 375 230 - 1,250 pg/mL Blood 08/21/2024 11:1 9 AM CDT 08/21/2024 2:31 PM CDT [facility] PRODUCTION CONTROL ANALYST LAB BLOOD ORDERABLES Final Re sult Performing Organization Address [facility] de Phone Number [facility] [address] [facility] [place] [address] * (ABNORMAL) Comprehensive metabolic panel (08/21/2024 11:19 AM CDT) [facility] Sodium 140 135 - 145 mmol/L Potassium, pl 4.0 3.3 - 4.9 mmol/L [facility] Chloride 105 97 - 110 mmol/L [facility] CO2 21(L) 22 - 32 mmol/L [facility] Anion gap 14 2 - 15 mmol/L [facility] BUN 7 6 - 25 mg/dL [facility] Creatinine 0.71 0.60 - 1.10 mg/dL [facility] Glucose 90 70 - 199 mg/dL [facility] Comment: Interpretive Data Fasting glucose >/= 126 [...] 2022. Calcium 9.1 8.5 - 10.3 mg/dL [facility] Bilirubin, total 0.9 0.1 - 1.2 mg/dL [facility] Protein, pl 7.1 6.5 - 8.5 g/dL [facility] Albumin 4.4 3.5 - 5.0 g/dL [facility] Alk phos 67 40 - 130 Units/L [facility] ALT 10 7 - 45 Units/L [facility] AST 16 10 - 45 Units/L [facility] Blood 08/21/2024 11:1 9 AM CDT 08/21/2024 2:31 PM CDT Francisca Mcfarland NP LAB BLOOD ORDERABLES Final Re sult [facility] [address] [place] [address] * High Risk HPV DNA Detection with Genotyping (Molecular component) (01/23/2023 9:48 AM CDT) HPV HR 16 Not Detected Not Detected [facility] HPV HR 18 Not Detected Not Detected [facility] HPV HR Non 16/18 Not Detected Not Detected [facility] Comment: Interpretive Data Nucleic acid amplification for [...] test have been verified by the [facility]. Correlate with separately reported cytology results, as applicable. Interpretive data last revised 22 Endocervical 01/23/2023 9:48 AM CDT 01/23/2023 5:18 PM CDT Narrative [facility] - 01/26/2023 7:17 PM CDT Clinical history and diagnosis->Well Woman Number of vials->1 Testing type->Screening Last menstrual period (date if known)->01/06/23 Yamila URIOSTEGUI LAB BODY FLUIDS AND STOOL S ORDERABLES Final Result Performing Organization Address City/[facility]/ZIP Co de Phone Number [facility] [address] [place] [address] * Hepatitis C antibody (05/17/2021 12:21 PM MEDICATION TECHNICIAN) Hep C Ab Nonreactive Nonreactive DRE [facility] [...] revised on 2019. Testing performed by: [facility], [facility] [place]., [address] Blood 05/17/2021 12:2 1 PM MEDICATION TECHNICIAN 05/17/2021 2:43 PM MEDICATION TECHNICIAN Essence Wren MD LAB MICROBIOLOGY - GEN ERAL ORDERABLES Final Result Performing Organization Address City/[facility]/ZIP Co de Phone Number [facility] [address] [facility]. [place] [address] from Last 3 Months or Most Recently Relevant to Health Maintenance Insurance [employer]ANS Address: [facility] [address] [place] [address] [facility] EMPLOYEES [facility] EMPLOYEES [facility] [employer]PLOYEES Advance Directives For more information, please contact: [phone] * Full Code (Latest Code Status on File) Date Activated Date Inactivated Comments 11/27/2021 9:43 AM 11/29/2021 10:23 PM * Full Code Date Activated Date Inactivated Comments 11/27/2021 4:37 AM 11/27/2021 9:43 AM Full CPR in case of cardiopulmonary arrest Care Teams Sole Conditioner Relationship Specialty Start Date End Date Mary Guillen MD [address] [address] PCP - General Internal Medicine 05/08/22 Essence Wren MD Consulting Physician Obstetrics and Gynecology 09/19/21
--- OUTSIDE RECORDS SUMMARY | 2024-11-18 12:31 | XMS_ITS | Encounter Summary ---
Author Organization [facility] Address [address] [place] [address] Care Team Providers Care Graphic Arts Technician Name Role Phone Essence Wren MD Unavailable [phone] Mary Guillen MD Primary Care Provider Encounter Details Date Type Department Care Team (Late st Contact Info) Description 09/17/2024 Results Follow-Up [facility] Medicine [address] [facility] [address] [place] [address] Yael Ruth NP [address] [facility] [address] [place] [address] Prealbumin, T4, free, T3, free, [...] staff should administer the PHQ-9) 0 10/16/2024 [place] Depression Scale Answer Date Recorded [place] Depression Scale Total 2 11/29/2021 The thought of harming myself has occurred to me . 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
--- OUTSIDE RECORDS SUMMARY | 2024-11-18 12:32 | XMS_ITS | Clinical Summary ---
Author Organization [facility] Address [address] [place] [address] Care Team Providers Care Crime Scene Investigator Name Role Phone MatthewGuichoJessica Tara Primary Care Provider Unavailable Source Comments [facility],non-owned Affiliates and Associated Physician Practices is amultiple site organization consisting of ambulatory clinics and hospital sitesin [place], [place], [place] and [place]. This disclosure is being madepursuant to the Care Everywhere program and may not contain all information available regarding this patient. Last updated 18.[facility] [employer] Allergies Active Allergy Reactions Criticality Noted Date [...] on file Legal Sex Female 1:[address] M[address]INE RUNNER Gender Identity Not on file Sexual Orientation [...] 11:29 PM 01/08/2019 5:50 PM Care Teams Crime Scene Investigator Relationship Specialty Start Date End Date Jessica Castro DO PCP - General Family Medicine 01/07/19
[2024-11-18 13:16] LABS: Hematocrit 39.2 % (37.0-47.0); Hemoglobin 12.5 g/dL (12.0-15.0); Mean Corpuscular HGB Conc 31.9 g/dl (32-36); Mean Corpuscular Hemoglobin 28.4 pg (26-34); Mean Corpuscular Volume 89.1 fl (80-100); Platelet Count Result 419 k/mm3 (150-375); Red Blood Count 4.40 M/mm3 (4.2-5.4); White Blood Count 7.9 K/mm3 (4.5-10.0)
[2024-11-18 13:29] LABS: Albumin Level 4.5 g/dL (3.5-5.1); Anion Gap 9 mmol/L (4-12); Blood Urea Nitrogen 9 mg/dL (7-17); Calcium 9.4 mg/dL (8.4-10.2); Carbon Dioxide 25 mmol/L (22-30); Chloride 104 mmol/L (98-107); Estimated Glomerular Filt Rate > 60; Glucose 100 mg/dL (65-110); Potassium 4.2 mmol/L (3.4-5.0); Sodium 138 mmol/L (137-145)
[2024-11-18 13:38] LABS: Prealbumin 16.9 mg/dL (17.6-36.0)
[2024-11-18 14:31] LABS: Iron 104 ug/dL (37-170)
== END 2024-11-18 12:27 | disposition home or self-care (01) ==
LOC: ANHLAB 12:29
PROVIDERS: Visit Provider Surgery Plastic and Reconstructive Surgery
DX: R63.4 Abnormal weight loss (principal)
CPT/HCPCS: 36415; 80048; 82040; 83540; 84134; 84425; 85027

== ENCOUNTER 2024-12-22 00:44 | Day surgery (SDC) | payer OTHER, SELFPAY ==
[2024-12-16 08:35] VITALS: BMI 33.7
--- NOTE | 2024-12-16 08:45 | PC.NURSE ---
Report to the Outpatient Waiting Room, entrance under the green pavilion located off [facility], at time ___0600_ on date _12/22/24 . Planned Procedure Time: ___729_.? Time changes happen often and if your time is changed the preop area will call you the afternoon before. - You and your visitor will be asked to self-screen and do not enter if you have any COVID symptoms. Please call surgeon if you need to reschedule. - A mask is optional within the hospital at this time. Patients may have clear liquids (water, carbonated beverages, clear teas, apple juice) until 3 hours prior to surgery with a maximum of 20 ounces. - No food from midnight until time of surgery and no smoking, or chewing tobacco (or any form of nicotine). No chewing gum, candy or mints. - Infants may have breast milk until 4 hours before surgery, infant formula 6 hours prior to surgery. - Children will be allowed to drink immediately following surgery.? If applicable, please bring a bottle or sippy cup to assist with drinking. Juice, water, soda, and popsicles are readily available.? For infants on formula, please bring formula the day of surgery.? Pacifiers are allowed. Take only the following medications with a SIP of water on the morning of surgery: ____sertraline, use inhaler if needed DO NOT STOP ANY OF YOUR OTHER PRESCRIPTION MEDICATIONS PRIOR TO SURGERY EXCEPT THE FOLLOWING Hold all vitamins and supplements for 3 days per anesthesiologist. Medications to discontinue per physician has not taken zepbound for several months Date to take last dose Please no make-up, nail peruvian, hairspray, perfume, deodorant, or body powder the day of surgery.? No jewelry (including any body piercings) or valuables the day of surgery, leave them at home.? Please take a shower or bath the night before, or the morning of, surgery with an antibacterial soap.? Wear comfortable, loose fitting clothing.? Children are encouraged to wear pajamas. - Jewelry must be removed prior to entering the operating room.? Rings and piercings that are not removed may be cut off. - The hospital will not accept responsibility for valuables.? - Please leave all valuables, including medications, at home the day of surgery. If you are going home after surgery, a licensed fleet driver must drive you home.? - NO public transportation without another adult if you receive anesthesia. - We recommend that an adult stay with you for 24 hours following discharge. - We also recommend that you do not drive, make important decision, drink alcoholic beverages, or take any drugs that were not prescribed by your health care provider for at least 24 hours after your discharge time. For Pediatric surgeries, we recommend two adults accompany the child home. Follow any additional instructions given to you from your surgeon. Telephone instructions given to _patient__and asked if any additional questions and then verbalized understanding. Patient advised to call surgeon office or pre surgery nurse liaison [phone] if any additional questions.
[2024-12-22] VITALS (17 sets, daily range): BP systolic 103–130; BP diastolic 55–81; PULSE 57–112; RESP 12–20; TEMP 36.1–36.7; O2SAT 97–100; BMI 34.0; BMI 34.2
--- OUTSIDE RECORDS SUMMARY | 2024-12-22 00:46 | XMS_ITS | Encounter Summary ---
Author Organization [facility] Address 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
--- OUTSIDE RECORDS SUMMARY | 2024-12-22 00:46 | XMS_ITS | Referral Summary ---
Author Organization [facility] Address [address] [place] [address] Care Team Providers Care Drain Tiler Name Role Phone Essence Wren MD Unavailable [phone] Mary Guillen MD Primary Care Provider Encounters Date Type Department Care Team Description 11/27/2024 2:30 PM CDT Office Visit [facility] [address] [facility] [address] [place] [address] Yael Ruth NP Generalized anxiety disorder (Primary Dx); Severe episode of recurrent major depressive disorder, without psychotic features (HCC); Attention deficit disorder (ADD) without hyperactivity; Psychophysiological insomnia; Class 2 obesity due to excess calories without serious comorbidity with body mass index (BMI) of 35.0 to 35.9 in adult 10/23/[address] [facility] Endocrinology at [address] [place] [address] Tara Blunt, CHARITY 10/20/[address] [facility] Endocrinology at [address] [place] [address] Tara Blunt, CHARITY 10/19/[address] [facility] Endocrinology at [address] [place] [address] Keegan Gallegos MD Med Management ([place]) 10/16/2024 1:30 PM CDT Office Visit 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 10/07/2024 12:30 PM CDT Telemedicine [place] [address] [facility] [address] [place] [address] Yael Ruth NP Generalized anxiety disorder (Primary Dx); Class 1 obesity due to excess calories without serious comorbidity with body mass index (BMI) of 34.0 to 34.9 in adult; Attention deficit disorder (ADD) without hyperactivity 09/28/2024 Results Follow-Up [address] [place] [address] Yael Ruth NP Prealbumin 09/28/2024 10:40 AM CDT Lab [place] [address] [facility] [address] [place] [phone] Low serum prealbumin 09/25/2024 Orders Only [address] [place] [address] Yael Ruth NP Low serum prealbumin (Primary Dx) 09/23/2024 9:30 AM CDT Telemedicine [facility] Orthopaedic Surgery [address] [facility] [address] [place] [address] Low serum prealbumin [R79.89] (Primary Dx); Class 1 obesity due to excess calories without serious comorbidity with body mass index (BMI) of 34.0 to 34.9 in adult [E66.811, E66.09, Z68.34] from Last 3 Months Allergies Active Allergy Reactions Criticality Noted Date Comments Azithromycin Rash Medium 01/14/2015 Codeine Other (See comments) Low 10/10/2009 Reaction: Insomnia, , Reaction: Insomnia, Hyperactive,couldnt sleep Causes insomnia and hyperactivity Latex Rash Medium 08/28/2011 Itchy , bumps , , swollen tongue Only to certain tapes Vancomycin Hives High 07/09/2016 Medications albuterol HFA (Ventolin HFA) 90 mcg/actuation inhalerIndicatio ns:Moderate asthma, unspecified whether complicated, unspecified whether persistent [...] by mouth daily 90 tablet 1 5 04/21/20 25 Active lisdexamfetamine (VYVANSE) 50 mg capsule Take 1 capsule (50 mg total) by mouth every morning 30 capsule 5 Active sertraline (ZOLOFT) 25 mg tablet Take 1 tablet (25 mg total) by mouth daily 90 tablet 5 Active Active Problems Problem Noted Date Diagnosed Date Psychophysiological insomnia 11/27/2024 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 recommend [id number] famotidine (Pepcid) for two weeks for potential acid reflux. Consider a muscular origin if symptoms persist despite ERRONEOUS ENCOUNTER--DISREGARD 05/25/2024 Severe episode of recurrent major depressive disorder, without psychotic features 07/10/2022 Assessment & Plan (11/27/2024 4:23 PM CDT): See Generalized anxiety Assessment & Plan (02/07/2023 8:29 AM CDT): Doing much better with this as she has changed jobs Assessment & Plan (07/10/2022 3:12 PM RETAIL FIELD MERCHANDISER): We discussed this at length. We encouraged her significantly to start therapy. She is an upcoming appointment in 2 weeks. Discussed to follow therapy at least once or twice a week. Discussed the role of medications and improving the serotonin and dopamine. Discussed using sertraline 25 mg a day with [facility]. Discussed any worsening symptoms do notify us as soon as possible. Follow-up with us in 1 month. Recommend intermittent FMLA to meet with our appointments as well as the appointments with the therapist. Highly recommend in person visits at this current time. Routine physical examination 05/08/2022 Assessment & Plan (05/08/2022 3:34 PM RETAIL FIELD MERCHANDISER): Discussed vaccinations. Discussed diet and exercise changes. Complimented her on exercising at least 3 times a week. She is currently . Attention deficit disorder (ADD) without hyperac tivity 05/08/2022 Assessment & Plan (10/07/2024 9:12 PM CDT): Doing well on vyvanse Assessment & Plan (05/27/2024 3:23 PM RETAIL FIELD MERCHANDISER): Has been doing well on Vyvanse. Would [...] months. Assessment & Plan (04/03/2023 9:18 PM RETAIL FIELD MERCHANDISER): Currently on Vyvanse 50 mg daily. Has been tolerating it well. We discussed make an appointment in the office in next couple of months for follow-up. Needs a blood pressure check. Assessment & Plan (02/07/2023 8:32 AM CDT): We d/w vyvanse and start at 30 mg a day We d.w not to consider with these meds Assessment & Plan (05/08/2022 3:36 PM RETAIL FIELD MERCHANDISER): Predominantly poor focus. Definitely scored high on [...] weight Assessment & Plan (04/03/2023 9:19 PM RETAIL FIELD MERCHANDISER): Continue with vitamins continue with weight loss efforts Assessment & Plan (02/07/2023 8:31 AM CDT): Unfortunately gained weight and we d.w wegovy and use of wegovy for weight management Assessment & Plan (05/08/2022 3:35 PM RETAIL FIELD MERCHANDISER): She has lost about 100 lb from [...] 16wks Assessment & Plan (05/08/2022 3:35 PM RETAIL FIELD MERCHANDISER): Would actually recommend checking insulin levels. Dysthymia [...] exercise Assessment & Plan (05/27/2024 3:23 PM RETAIL FIELD MERCHANDISER): Currently on zepbound. Doing very well on [...] understanding. Assessment & Plan (04/03/2023 9:18 PM RETAIL FIELD MERCHANDISER): Has been taking once a week. Has [...] gastric sleeve .BMI Follow-up includes: nutrition counseling. Ivan d/w matthew and ivan jaime pros and cons Assessment & Plan (07/10/2022 3:12 PM RETAIL FIELD MERCHANDISER): .BMI Follow-up includes: nutrition counseling. Assessment & Plan (05/08/2022 3:34 PM RETAIL FIELD MERCHANDISER): BMI discussed she is post gastric sleeve [...] (05/16/2021): -no meds BMI 39.0-39.9,adult 01/26/2019 03/08/20 21 Assessment & Plan (01/26/2019 3:29 AM CDT): [...] levothyroxine Assessment & Plan (05/08/2022 3:35 PM RETAIL FIELD MERCHANDISER): Last thyroid up testing was done in [...] more points, staff should administer the PHQ-9) 3 11/27/2024 [place] Depression Scale Answer Date Recorded [place]edar Depression Scale Total 2 11/29/2021 The thought of harming myself has occurred to me . Never 11/29/2021 PHQ-9 Answer Date Recorded PHQ-9 Total Score 8 11/27/2024 Comments No Sex and Gender Information Value Date Recorded Sex Assigned at Not on file Legal Sex Female 11:39 PM RETAIL FIELD MERCHANDISER Gender Identity Female 03/08/2021 3:50 PM CDT Sexual Orientation Straight 03/08/2021 3: 50 PM CDT Last Filed Vital Signs Vital Sign Reading Time Taken Comments Blood Pressure 128/88 11/27/2024 2:57 PM CDT Pulse 82 11/27/2024 2:57 PM CDT Temperature 36.7 C (98 F) 10/16/2024 1:17 PM CDT Respiratory Rate 14 10/16/2024 1:17 PM CDT Oxygen Saturation 99% 11/27/2024 2:57 PM CDT Inhaled Oxygen Concentration - - Weight 93.8 kg (206 lb 12.8 oz) 11/27/2024 2:57 PM CDT Height 162.6 cm (5' 4) 11/27/2024 2:57 PM CDT Body Mass Index 35.5 11/27/2024 2:57 PM CDT Plan of Treatment Not on file Medical Devices Implanted Type Area Drug Safety Specialist Device Identifier Shelf Expiration Date Model / Serial / Lot Supercell Seprafilm 6x5in Barrier Adhesion Sterile Disposable Latex Free [id number] - [id number] Implanted:Qty: 1 on 11/27/2021 by Essence Wren MD at [facility] N/A: Abdomen [facility]era [id number] 01/20/2024 [id number] / / [id number] Procedures Procedure Name Priority Date/Time Associated Diagnosis Comments PREALBUMIN Routine 09/28/2024 10:43 AM CDT Low serum prealbumin HIGH RISK HPV DNA DETECTION WITH GENOTYPING Routine 01/23/2023 9:48 AM CDT Encounter for well woman exam with routine gynecological exam HEPATITIS C ANTIBODY Routine 05/17/2021 12:21 PM RETAIL FIELD MERCHANDISER care, subsequent in first trimester from Last 3 Months or Most Recently Relevant to Health Maintenance Results * (ABNORMAL) Prealbumin (09/28/2024 10:43 AM CDT) Prealbumin 13.9(L) 20.0 - 40.0 mg/dL Blood 09/28/2024 10:4 3 AM CDT 09/28/2024 1:56 PM CDT Yael Ruth NP LAB BLOOD ORDERABLES Final Re sult Performing Organization Address City/[facility]/ZIP Co de Phone Number [facility] [address] [place] [address] * High Risk HPV DNA Detection with Genotyping (Molecular component) (01/23/2023 9:48 AM CDT) HPV HR 16 Not Detected Not Detected [facility] HPV HR 18 Not Detected Not Detected [facility] HPV HR Non 16/18 Not Detected Not Detected [facility] Comment: Interpretive Data Nucleic acid amplification for [...] this test have been verified by the [facility]. Correlate with separately reported cytology results, as applicable. Interpretive data last revised 22 Endocervical 01/23/2023 9:48 AM CDT 01/23/2023 5:18 PM CDT Narrative [facility] - 01/26/2023 7:17 PM CDT Clinical history and diagnosis->Well Woman Number of vials->1 Testing type->Screening Last menstrual period (date if known)->01/06/23 Yamila URIOSTEGUI LAB BODY FLUIDS AND STOOL S ORDERABLES Final Result Performing Organization Address [facility]/ZIP Co de Phone Number [facility] [address] [place] [address] * Hepatitis C antibody (05/17/2021 12:21 PM RETAIL FIELD MERCHANDISER) Hep C Ab Nonreactive Nonreactive [facility] Comment: Interpretive Data Nonreactive: Antibodies to HCV [...] last revised on 2019. Testing performed by: [facility], [facility] [facility], [place]., [address] Blood 05/17/2021 12:2 1 PM RETAIL FIELD MERCHANDISER 05/17/2021 2:43 PM RETAIL FIELD MERCHANDISER Essence Wren MD LAB MICROBIOLOGY - GEN ERAL ORDERABLES Final Result [facility] [address] [facility] Department [place] [address] from Last 3 Months or Most Recently Relevant to Health Maintenance Insurance [employer] [facility] [employer]PL[employer]EE [employer] PLANS Address: [facility] [id number] [place] [address] [employer] [facility] H[employer]/PPO Address: [address] [address] [employer] H[employer]/PPO Address: [address] [address] [address] [employer] [facility] H[employer]/PPO Address: [place] [phone] Advance Directives For more information, please contact: [phone] * Full Code (Latest Code Status on File) Date Activated Date Inactivated Comments 11/27/2021 9:43 AM 11/29/2021 10:23 PM * Full Code Date Activated Date Inactivated Comments 11/27/2021 4:37 AM 11/27/2021 9:43 AM Full CPR in case of cardiopulmonary arrest Care Teams Drain Tiler Relationship Specialty Start Date End Date Mary Guillen MD [address] [facility] [address] [place] [address] PCP - General Internal Medicine 05/08/22 Essence Wren MD Consulting Physician Obstetrics and Gynecology 09/19/21
--- OUTSIDE RECORDS SUMMARY | 2024-12-22 00:46 | XMS_ITS | Encounter Summary ---
Author Organization Network Address [address] [place] [address] Care Team Providers Care Facility Engineer Name Role Phone Lillie Ruiz MD Primary Care Provider [phone] Encounter Details Date Type Department Care Team (Latest Contact Info) Description 05/06/1998 Outpatient Historical [facility] Jeanne Meng Contact dermatitis and other eczema, due to unspecified cause (Primary Dx) Social History Tobacco Use Types Packs/Day Years Used Date Smoking Tobacco: Never Assessed Comments Unknown Sex and Gender Information Value Date Recorded Sex Assigned at Not on file Legal Sex Female 5:13 AM CLOTH WINDER Gender Identity Not on file Sexual Orientation Not on file documented as of this encounter Plan of Treatment Not on file documented as of this encounter Visit Diagnoses Diagnosis Contact dermatitis and other eczema, due to unspecified cause- Primary documented in this encounter Care Teams Facility Engineer Relationship Specialty Start Date End Date Lillie Ruiz MD [facility] [place] [address] PCP - General Family Practice 10/26/14 documented as of this encounter
--- OUTSIDE RECORDS SUMMARY | 2024-12-22 00:46 | XMS_ITS | Encounter Summary ---
Author Organization [employer] Address [address] [place] [address] Care Team Providers Care Senior Db2 Systems Programmer Name Role Phone Lillie Ruiz MD Primary Care Provider [phone] Encounter Details Date Type Department Care Team (Late st Contact Info) Description 08/07/2017 Abstract [facility] Chris [address] [address] Manuel Rousseau MD [address] [place] [address] Social History Tobacco Use Types Packs/Day Years Used Date Smoking Tobacco: Never Smokeless Tobacco: Never Alcohol Use Standard Drinks/Week Comments No 0 (1 standard drink = 0.6 oz pur e alcohol) Comments No Sex and Gender Information Value Date Recorded Sex Assigned at Not on file Legal Sex Female 5:13 AM ARMY RANGER Gender Identity Not on file Sexual Orientation Not on file Occupation Industry Job Start Date Job End Date Not on file Not on file Not on file Not on file documented as of this encounter Plan of Treatment Not on file documented as of this encounter Visit Diagnoses Not on filedocumented in this encounter Care Teams Senior Db2 Systems Programmer Relationship Specialty Start Date End Date Lillie Ruiz [place] [address] PCP - General Family Practice 10/26/14 documented as of this encounter
--- OUTSIDE RECORDS SUMMARY | 2024-12-22 00:46 | XMS_ITS | Encounter Summary ---
Author Organization [employer] Address [address] [place] [address] Care Team Providers Care Timing Inspector Name Role Phone Lillie Ruiz MD Primary Care Provider [phone] Encounter Details Date Type Department Care Team (Latest Contact Info) Description 07/04/1999 Outpatient [facility] Jeanne Meng Streptococcal sore throat (Primary Dx) Social History Tobacco Use Types Packs/Day Years Used Date Smoking Tobacco: Never Assessed Comments Unknown Sex and Gender Information Value Date Recorded Sex Assigned at Not on file Legal Sex Female 5:13 AM INTERVENTION TEACHER Gender Identity Not on file Sexual Orientation Not on file documented as of this encounter Plan of Treatment Not on file documented as of this encounter Visit Diagnoses Diagnosis Streptococcal sore throat- Primary documented in this encounter Care Teams Timing Inspector Relationship Specialty Start Date End Date Lillie Ruiz MD [address] [place] [phone] PCP - General Family Practice 10/26/14 documented as of this encounter
--- OUTSIDE RECORDS SUMMARY | 2024-12-22 00:46 | XMS_ITS | Encounter Summary ---
Author Organization [facility] Healthcare Address [address] [place] [address] Care Team Providers Care Asset Protection Lead Name Role Phone Naila Sanchez DO Primary Care Provider [phone] Essence Wren MD Unavailable [phone] Mary Guillen MD Primary Care Provider Encounter Details Date Type Department Care Team (Late st Contact Info) Description 12/01/2021 Documentation [facility] [address] [place] [address] Holly Davalos RN Social History [...] staff should administer the PHQ-9) 2 08/23/2020 [place] Depression Scale Answer Date Recorded [place] Depression Scale Total 2 11/29/2021 The thought of harming myself has occurred to me . Never 11/29/2021 Comments No Sex and Gender Information Value Date Recorded Sex Assigned at Not on file Legal Sex Female 11:39 PM MANAGER OF DRILLING Gender Identity Female 03/08/2021 3:50 PM CDT [...] COVID: Suspected 06/12/2022 06/12/2022 06/13/2022 3:05 AM MANAGER OF DRILLING COVID: Suspected 06/12/2022 06/12/2022 06/13/2022 6:30 AM MANAGER OF DRILLING COVID19 06/12/2022 06/12/2022 06/22/2022 3:05 AM MANAGER OF DRILLING COVID: Recovered Comment:Added based on recent COVID infection. 06/22/2022 06/26/2022 09/20/2022 3:05 AM C DT COVID: Suspected 08/06/2022 08/06/2022 08/07/2022 3:05 AM CDT COVID: Suspected 08/06/2022 08/06/2022 08/07/2022 4:46 AM CDT documented as of this encounter Care Teams Asset Protection Lead Relationship Specialty Start Date End Date Naila Sanchez DO PCP - General Family Medicine 08/23/20 05/07/22 Mary Guillen MD [address] [address] PCP - General Internal Medicine 05/08/22 Essence Wren MD Consulting Physician Obstetrics and Gynecology 09/19/21 documented as of this encounter
--- OUTSIDE RECORDS SUMMARY | 2024-12-22 00:46 | XMS_ITS | Clinical Summary ---
Author Organization [facility] Address [address] [place] [address] Phone Care Team Providers Care Landscaping Crew Leader Name Role Phone Lillie Ruiz MD Primary Care Provider [phone] Allergies Active Allergy Reactions Criticality Noted Date [...] flaring. 45 Gram 3 05/10/2017 2:53 PM SKEIN BLEACHER 7 Active Fluocinolone-Hydr oq.-Tretinoin (TRI-IVANNA) 0.01-4-0.05 % [...] 1 Tablet (100 mcg) by mouth daily emergency medical dispatcher. 90 Tablet 09/04/2018 11:39 AM CDT 9 [...] on file Legal Sex Female 5:13 AM SKEIN BLEACHER Gender Identity Not on file Sexual Orientation [...] Health Maintenance Due Date Last Done Comments HPV VACCINES (1 - 3-dose series) 11/03/2002 HEPATITIS B VACCINES (1 of 3 - 19+ 3-dose series) 11/03/2006 DTAP/TDAP/TD VACCINES (2 - T d or Tdap) 10/11/2019 10/10/2009 Pre-Diabetes and Diabetes Screening 01/09/2021 01/09/2018, 12/26/2017, 01/04/2017, Additional history exists PAP SMEAR 03/07/2021 03/07/2018, 02/17, 08/10/2016, Additional history exists CERVICAL CANCER SCREENING 03/07/2023 HPV/Cotest (21-29) 03/07/2023 03/07/2018, 0 08/10/2016, 11/25/2015, Additional history exists HPV/Cotest (30-65) 03/07/2023 03/07/2018, 0 08/10/2016, 11/25/2015, Additional history exists Preventative Visit- Commercial 05/20/2024 1 , 01/11/2015, 10/26/2014, Additional history exists INFLUENZA VACCINE (#1) 2024 8, 02/07/2017, 02/03/2016, Additional history exists Medical Devices Implanted Type Area Block Captain Device Identifier Shelf Expiration Date Model / Serial / Lot Jamguard Endogia 60 [id number] [id number] - [id number] Implanted:Qty : 2 on 08/19/2017 by Manuel Rousseau MD at [facility] N/A: Stomach [employer] 04/18/2020 [id number] / / [id number] Seamguard Endogia 60 Blck [id number] - [id number] Implanted:Qty : 2 on 08/19/2017 by Manuel Rousseau MD at [facility] N/A: Stomach [employer] 03/19/2020 [id number] / / [id number] Procedures Procedure Name Priority Date/Time Associated Diagnosis [...] was performed using the APTIMA HPV Assay ([employer] This assay detects E6/E7 viral messenger RNA (mRNA) from 14 high-risk HPV types (16,18,31,33,35,39,45,51,52,56,58,59,66,68). The analytical performance characteristics of this assay have been determined by HERMEL DELOR. The modifications have not been cleared or approved by the FDA. This assay has been validated pursuant to the CLIA regulations and is used for clinical purposes. Genital SWAB OF ENDOCERVIX / Unknown Collection / Unknown 03/07/2018 10:40 AM CDT 03/07/2018 12:49 PM CDT Narrative [facility] - 03/13/2018 10:37 AM CDT Performing Organization Information: Site ID: [id number] Name: [employer] [place] Address: [id number] [place] [address] [place] [address] Director: Todd Barlow D.O. MPH Julienne Berg MD PATHOLOGY/CYTOLOGY ORDERABLES Final Result Performing Organization Address City/[facility]/ZIP Co de Phone Number [facility] * CERV/VAG CYTO AGE BASED SCREEN PAP W CT/NG (03/07/2018 10:40 AM CDT) COMMENT (PAP): SEE COMMENT 10:37 AM CDT [facility] Comment: This order for age-based cervical cancer and STI screening follows ACOG guidelines(PB 168, 140, IIX755). See individual assays for performing site location. Genital SWAB OF ENDOCERVIX / Unknown Collection / Unknown 03/07/2018 10:40 AM CDT 03/07/2018 12:49 PM CDT Narrative [facility] - 03/13/2018 10:37 AM CDT Performing Organization Information: Site ID: [facility] Name: [employer] Address: [address] [place] [id number] Director: Todd Barlow D.O. MPH Julienne Berg MD PATHOLOGY/CYTOLOGY ORDERABLES Final Result [facility] * HEMOGLOBIN A1C (01/09/2018 12:18 PM CDT) HEMOGLOBIN A1C 4.8 4.0 - 6.0 % 01/09/2018 12:37 PM CDT [facility] EST. AVG GLUCOSE, A1C 91 mg/dL 01/09/2018 12:37 PM CDT [facility] Blood Venipuncture / Unknown 01/09/2018 12:18 PM CDT 01/09/2018 12:18 PM CDT [facility]ative [facility] - 01/09/2018 12:37 PM CDT HGB A1C INTERPRETATION NORMAL: <5.7% PRE-DIABETES: 5.7 - 6.4% DIABETES: 6.5% OR GREATER Tara Casas ANP CHEMISTRY ORDERABLES Final Re sult YAMILET Ener1 [facility] CLIA# [id number] [address] [place] [address] from Last 3 Months or Most Recently Relevant to Health Maintenance Insurance RX MEDIMPACT Member Subscriber Plan / Payer (Ef fective for All Dates) Name:Jamila Nobles Relation to Subscriber:Self Name:Jamila Nobles Payer ID:Not on file Group ID:[id number] Type:RX Commercial Address: [place], [place] RX SINHA PLANS (INTERNAL) [facility] Internal Plans Advance Directives For more information, please contact: [phone] * Full Code (Latest Code Status on [...] 7:51 AM 06/28/2016 6:22 PM Care Teams Landscaping Crew Leader Relationship Specialty Start Date End Date Lillie Ruiz MD [address] [place] [phone] PCP - General Family Practice 10/26/14
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
--- OUTSIDE RECORDS SUMMARY | 2024-12-22 00:46 | XMS_ITS | Encounter Summary ---
Author Organization [employer] Address 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
--- OUTSIDE RECORDS SUMMARY | 2024-12-22 00:46 | XMS_ITS | Clinical Summary ---
Author Organization [facility] Address [address] [place] [address] Care Team Providers Care Tow Driver Name Role Phone Guicho Castroley Tara Primary Care Provider Unavailable Source Comments [facility],non-owned Affiliates and Associated Physician Practices is amultiple site organization consisting of ambulatory clinics and hospital sitesin [place], [place], [place] and [place]. This disclosure is being madepursuant to the Care Everywhere program and may not contain all information available regarding this patient. Last updated 18.[facility] datatracker Allergies Active Allergy Reactions Criticality Noted Date [...] on file Legal Sex Female 1:21 PM MEDIA CENTER SPECIALIST Gender Identity Not on file Sexual Orientation [...] of 3 - 19+ 3-dose series) 11/03/2006 HPV VACCINE (1 - 3-dose SCDM series) 11/03/2014 COVID-19 VACCINE (1 - 2023- season) 2024 DEPRESSION SCREENING 05/20/2024 INFLUENZA VACCINE (#1) 2025 8, 02/07/2017, 02/03/2016, Additional history exists ZOSTER VACCINE [...] 11:29 PM 01/08/2019 5:50 PM Care Teams Tow Driver Relationship Specialty Start Date End Date Jessica Castro DO PCP - General Family Medicine 01/07/19
--- OUTSIDE RECORDS SUMMARY | 2024-12-22 00:46 | XMS_ITS | Encounter Summary ---
Author Organization [facility] [employer] Address 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
--- OUTSIDE RECORDS SUMMARY | 2024-12-22 00:46 | XMS_ITS | Encounter Summary ---
Author Organization [employer] Address 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 Dictated by: RADIOLOGY, DEPARTMENT O Electronically signed by: RADIOLOGY, DEPARTMENT 12/02/2007 09:51 Transcribed: 11/28/2007 14:47 [facility] Procedure Note Provider, Historical - 12/02/2007 [place] [address] Admit Date: 11/27/2007 GIULIANOYOELMira Musa Sex: F Admit Prov: ASHLEY ROBERSON Date: 1985 Primary Care Prov: KILO MCCONNELL Lizeth CMRN: [id number] [id number] IM[facility] Ordering Prov: ASHLEY ROBERSON Interpretation PLEASE SEE OTHER CT REPORT FROM SAME DATE. Dictated by: RADIOLOGY, DEPARTMENT O Electronically signed by: RADIOLOGY, DEPARTMENT 12/02/2007 09:51 Transcribed: 11/28/2007 14:47 [facility] us Ashley Roberson MD DIAGNOSTIC IMAGING ORDERABL ES Final Result * CT THORACIC SPINE WO CONTRAST (11/27/2007 10:08 PM CDT) Anatomical Region Laterality Modality Spine Other 11/27/2007 10:0 8 PM CDT Narrative 11/27/2007 11:[address] PM [address] [address] Admit Date: 11/27/2007 MELL NOBLES Sex: F Admit Prov: MURALI, AUTHORIZED P Date: 1985 Primary Care Prov: KILO MCCONNELL CMRN: [id number] [id number] IMAGING SERVICES Ordering Prov: N/A Accession Number: [id number] Interpretation Exam: CT the thoracic spine without [...] 23:02 Procedure Note Kim Porter - 11/27/[address] [address] Admit Date: 11/27/2007 MELL NOBLES Sex: F Admit Prov: ER, AUTHORIZED P Date: 1985 Primary Care Prov: KILO MCCONNELL CMRN: [id number] Room: [facility] SSN: [id number] IMAGING SERVICES Ordering Prov: N/A Interpretation Exam: [...] PM CDT Narrative 11/28/2007 7:36 AM CDT [place] [address] Admit Date: 11/27/2007 MELL NOBLES Sex: F Admit Prov: ASHLEY ROBERSON Date: 1985 Primary Care Prov: KILO MCCONNELL CMRN: [id number] Room: [facility] SSN: [id number] IMAGING SERVICES Ordering Prov: N/A Accession Number: [id number] Interpretation THORACIC SPINE 3 VIEWS, 11/27/2007 History: [...] Procedure Note Hussain Fernandez DO - 11/28/[address] [address] Admit Date: 11/27/2007 MELL NOBLES Sex: F Admit Prov: DAVERamírez ASHLEY Casas Date: 1985 Primary Care Prov: KILO MCCONNELL CMRN: [id number] Room: [facility] SSN: [id number] IMAGING SERVICES Ordering Prov: N/A Interpretation THORACIC [...] FERNANDEZ 11/28/2007 07:35 Transcribed: 11/28/2007 07:32 SMM Ashley Roberson MD DIAGNOSTIC IMAGING ORDERABL ES Final Result * XR LUMBAR SPINE 2 OR 3 VW (11/27/2007 9:42 PM CDT) Anatomical Region Laterality Modality Spine Other 11/27/2007 9:42 PM CDT Narrative 11/28/2007 7:28 AM CDT [address] [address] Admit Date: 11/27/2007 MELL NOBLES Sex: F Admit Prov: ASHLEY ROBERSON Date: 1985 Primary Care Prov: KILO MCCONNELL CMRN: [id number] [facility] [id number] IMAGING SERVICES Ordering Prov: N/A Accession Number: [id number] Interpretation LUMBAR SPINE 3 VIEWS, 11/27/2007 History: [...] Procedure Note Hussain Fernandez DO - 11/28/[address] [address] Admit Date: 11/27/2007 MELL NOBLES Sex: F Admit Prov: ASHLEY ROBERSON Date: 1985 Primary Care Prov: KILO MCCONNELL CMRN: [id number] [facility] [id number] IMAGING SERVICES Ordering Prov: N/A Interpretation LUMBAR [...] on filedocumented in this encounter Care Teams Chrome Cleaner Relationship Specialty Start Date End Date Lillie Ruiz MD [address] [place] [phone] PCP - General Family Practice 10/26/14 documented as of this encounter
--- OUTSIDE RECORDS SUMMARY | 2024-12-22 00:46 | XMS_ITS | Continuity of Care Document ---
Author Organization [facility] Address [address] [facility] [place] [address] Phone Care Team Providers Care Wastewater Operator Name Role Phone Unavailable Unavailable Unavailable Advance Directives Directive Yes / No Effective Date File Name No Information Encounters Encounter Description Practice Location Reason(s) For Visit Diagnoses Date Provider Providers Copied on Encounter [facility], [address] [facility], [place], [place], [id number], [place] tel:[phone] MICHELE GERARDO OUTPATIENT No Information 7 No Information Referring Provider: KIRSTIN Musa, [address] [facility] [place], [place], [address]. tel:[phone] Family History Family Member Type Diagnosis Age At Onset No Information Payers Payer name Insurance type Covered republican ID Authormaggiea shawn(s) [facility] PPO [id number] Social History Type Description Quantity Date Captured Comments Sex Female Smoking Status No Information Chief Complaint And Reason For Visit No Information History Of Present Illness Encounter Date Complaint History Of Prese nt Illness No Information Instructions Date Instruction Additional Infor mation No Information Assessments Type Assessment Date No Information
--- OUTSIDE RECORDS SUMMARY | 2024-12-22 00:46 | XMS_ITS | Clinical Summary ---
Author Organization [facility] Address [address] [place] [address] Care Team Providers Care Wallpaper Cleaner Name Role Phone Essence Wren MD Unavailable [phone] Mary Guillen MD Primary Care Provider Allergies [...] total) by mouth daily 90 tablet 1 06/06/04/21/20 25 Active lisdexamfetamine (VYVANSE) 50 mg capsule [...] test given also going for surgery in August. recommend [id number] famotidine (Pepcid) for two weeks for potential [...] jobs Assessment & Plan (07/10/2022 3:12 PM PRODUCTION TEAM MEMBER): We discussed this at length. We encouraged her significantly to start therapy. She is an upcoming appointment in 2 weeks. Discussed to follow therapy at least once or twice a week. Discussed the role of medications and improving the serotonin and dopamine. Discussed using sertraline 25 mg a day with weekly follow-ups with us through [facility] about her progress. Discussed any worsening symptoms do notify us as soon as possible. Follow-up with us in 1 month. Recommend intermittent FMLA to meet with our appointments as well as the appointments with the therapist. Highly recommend in person visits at this current time. Routine physical examination 05/08/2022 Assessment & Plan (05/08/2022 3:34 PM PRODUCTION TEAM MEMBER): Discussed vaccinations. Discussed diet and exercise changes. Complimented her on exercising at least 3 times a week. She is currently . Attention deficit disorder (ADD) without hyperac tivity 05/08/2022 Assessment & Plan (10/07/2024 9:12 PM CDT): Doing well on vyvanse Assessment & Plan (05/27/2024 3:23 PM PRODUCTION TEAM MEMBER): Has been doing well on Vyvanse. Would [...] months. Assessment & Plan (04/03/2023 9:18 PM PRODUCTION TEAM MEMBER): Currently on Vyvanse 50 mg daily. Has been tolerating it well. We discussed make an appointment in the office in next couple of months for follow-up. Needs a blood pressure check. Assessment & Plan (02/07/2023 8:32 AM CDT): We d/w vyvanse and start at 30 mg a day We d.w not to consider with these meds Assessment & Plan (05/08/2022 3:36 PM PRODUCTION TEAM MEMBER): Predominantly poor focus. Definitely scored high on [...] weight Assessment & Plan (04/03/2023 9:19 PM PRODUCTION TEAM MEMBER): Continue with vitamins continue with weight loss efforts Assessment & Plan (02/07/2023 8:31 AM CDT): Unfortunately gained weight and we d.w wegovy and use of wegovy for weight management Assessment & Plan (05/08/2022 3:35 PM PRODUCTION TEAM MEMBER): She has lost about 100 lb from [...] 16wks Assessment & Plan (05/08/2022 3:35 PM PRODUCTION TEAM MEMBER): Would actually recommend checking insulin levels. Dysthymia [...] exercise Assessment & Plan (05/27/2024 3:23 PM PRODUCTION TEAM MEMBER): Currently on zepbound. Doing very well on [...] understanding. Assessment & Plan (04/03/2023 9:18 PM PRODUCTION TEAM MEMBER): Has been taking once a week. Has [...] cons Assessment & Plan (07/10/2022 3:12 PM PRODUCTION TEAM MEMBER): .BMI Follow-up includes: nutrition counseling. Assessment & Plan (05/08/2022 3:34 PM PRODUCTION TEAM MEMBER): BMI discussed she is post gastric sleeve [...] levothyroxine Assessment & Plan (05/08/2022 3:35 PM PRODUCTION TEAM MEMBER): Last thyroid up testing was done in [...] Description 11/27/2024 2:30 PM CDT Office Visit [facility] [address] [place] [address] [address] [place] [phone] Yael Ruth NP Generalized anxiety disorder (Primary Dx); Severe episode of recurrent major depressive disorder, without psychotic features (HCC); Attention deficit disorder (ADD) without hyperactivity; Psychophysiological insomnia; Class 2 obesity due to excess calories without serious comorbidity with body mass index (BMI) of 35.0 to 35.9 in adult 10/23/2024 Telephone [facility] Endocrinology at [address] [phone] Tara Blunt LPN 10/20/2024 Telephone [facility] Endocrinology at [facility] [address] [place] [address] [address] [phone] Tara Blunt LPN 10/19/2024 Telephone [facility] Endocrinology at [address] [phone] Keegan Gallegos MD Med Management ([place]) 10/16/2024 1:30 PM CDT Office Visit [facility] Endocrinology at [address] [phone] Keegan Gallegos MD 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 10/07/2024 12:30 PM CDT Telemedicine [address] [place] [phone] Yael Ruth NP Generalized anxiety disorder (Primary Dx); Class 1 obesity due to excess calories without serious comorbidity with body mass index (BMI) of 34.0 to 34.9 in adult; Attention deficit disorder (ADD) without hyperactivity 09/28/2024 10:40 AM CDT Lab [address] [place] [phone] Low serum prealbumin 09/28/2024 Results Follow-Up [address] [place] [address] Yael Ruth NP Prealbumin 09/25/2024 Orders Only [address] [place] [address] Yael Ruth NP Low serum prealbumin (Primary Dx) 09/23/2024 9:30 AM CDT Telemedicine [facility] Orthopaedic Surgery [address] [facility] Medical Office Building [address] [place] [address] Low serum prealbumin [R79.89] (Primary Dx); Class 1 obesity due to excess calories without serious comorbidity with body mass index (BMI) of 34.0 to 34.9 in adult [E66.811, E66.09, Z68.34] from Last 3 Months Immunizations Immunization Administration [...] staff should administer the PHQ-9) 3 11/27/2024 [place] Depression Scale Answer Date Recorded [place] Depression Scale Total 2 11/29/2021 The thought of harming myself has occurred to me . Never 11/29/2021 PHQ-9 Answer Date Recorded PHQ-9 Total Score 8 11/27/2024 Comments No Sex and Gender Information Value Date Recorded Sex Assigned at Not on file Legal Sex Female 11:39 PM PRODUCTION TEAM MEMBER Gender Identity Female 03/08/2021 3:50 PM CDT [...] CS-LT ranv N Livin g 4 9 GIULIANO ,GIRL1 Brandy Santana Complications:Dysfunctional Labor,Cephalopelvic Disproportion,Failure to Progress in First Stage,Incisional infection Delivery Location:[facility] Comments:No observed a nomalifahad 2021 Term 39w 0d 0h 01m 0h 01m 3.345 kg (7 lb 6 oz) F CS-LT ranv Spinal N Livin g 8 9 Megan Essence Chung MD Complications:None [facility] L [facility] D PROCEDURE) Last Filed [...] 11/27/2024 2:57 PM CDT Plan of Treatment Health Maintenance Due Date Last Done Comments HPV Vaccines (1 - 3-dose SCDM series) 11/03/2014 Influenza Vaccine (#1) 2025 , 02/17/2019, 02/17/2018, Additional history exists Regular Well Visit/Exam 18-64 02/13/2025 02/14/2024, 01/23/2023, 05/08/2022, Additional history exists Depression Screening 11/27/2025 11/27/2024, 11/27/2024, 10/16/2024, Additional history exists Cervical Cancer Screening 01/23/2026 01/23/2023, 10/2022 DTaP/Tdap/Td Vaccine (7 - Td or Tdap) 09/26/2031 09/25/2021, 10/18/2009, 01/16/1993, Additional history exists Hepatitis B Screening Completed 01/03/2000, Varicella Vaccines Completed 12/10/2014, 0 11/10/2014, 11/10/2014 Hepatitis C Screening Completed 05/17/2021 Pneumococcal vaccine <65 Aged Out No longer eligible based on patient's age to complete this topic Medical Devices Implanted Type Area Preschool Head Teacher Device Identifier Shelf Expiration Date Model / Serial / Lot [employer] Seprafilm 6x5in Barrier Adhesion Sterile Disposable Latex Free [id number] - [id number] Implanted:Qty: 1 on 11/27/2021 by Essence Wren MD at [facility] N/A: Abdomen [employer] [id number] 01/20/2024 [id number] / / [id number] Procedures Procedure Name Priority Date/Time Associated Diagnosis Comments PREALBUMIN Routine 09/28/2024 10:43 AM CDT Low serum prealbumin HIGH RISK HPV DNA DETECTION WITH GENOTYPING Routine 01/23/2023 9:48 AM CDT Encounter for well woman exam with routine gynecological exam HEPATITIS C ANTIBODY Routine 05/17/2021 12:21 PM PRODUCTION TEAM MEMBER care, subsequent in first trimester from Last 3 Months or Most Recently Relevant to Health Maintenance Results * (ABNORMAL) Prealbumin (09/28/2024 10:43 AM CDT) Prealbumin 13.9(L) 20.0 - 40.0 mg/dL Blood 09/28/2024 10:4 3 AM CDT 09/28/2024 1:56 PM CDT Yael Ruth NP LAB BLOOD ORDERABLES Final Re sult [facility] [address] Department [place] [address] * High Risk HPV DNA Detection with Genotyping (Molecular component) (01/23/2023 9:48 AM CDT) HPV HR [address] [facility] HPV HR [address] Not Detected [facility] HPV HR Non 16/[address] [facility] Comment: Interpretive Data Nucleic acid [...] test have been verified by the [facility] Laboratory. Correlate with separately reported cytology results, as applicable. Interpretive data last revised 22 Endocervical 01/23/2023 9:48 AM CDT 01/23/2023 5:[address] [facility] - 01/26/2023 7:17 PM CDT Clinical history and diagnosis->Well Woman Number of vials->1 Testing type->Screening Last menstrual period (date if known)->01/06/23 Yamila URIOSTEGUI LAB BODY FLUIDS AND STOOL S ORDERABLES Final Result [facility] [place] [address] Department [place] [address] * Hepatitis C antibody (05/17/2021 12:21 PM PRODUCTION TEAM MEMBER) Hep C Ab Nonreactive Nonreactive [facility] [...] revised on 2019. Testing performed by: [facility], [facility] [place]., [address] Blood 05/17/2021 12:2 1 PM PRODUCTION TEAM MEMBER 05/17/2021 2:43 PM PRODUCTION TEAM MEMBER Essence Wren MD LAB MICROBIOLOGY - GEN ERAL ORDERABLES Final Result Performing Organization Address City/[facility] Co de Phone Number [facility] [address] [facility]. [place] [address] from Last 3 Months or Most Recently Relevant to Health Maintenance Insurance [employer] Address: [facility] [id number] [place] [address] [employer] [employer] [address] [place] [phone] [place] [address] [employer]PLOYEES UN[address] [place] [phone] [employer] [employer] Advance Directives For more information, please contact: [phone] * Full Code (Latest Code Status on File) Date Activated Date Inactivated Comments 11/27/2021 9:43 AM 11/29/2021 10:23 PM * Full Code Date Activated Date Inactivated Comments 11/27/2021 4:37 AM 11/27/2021 9:43 AM Full CPR in case of cardiopulmonary arrest Care Teams Wallpaper Cleaner Relationship Specialty Start Date End Date Mary Guillen MD [address] [address] PCP - General Internal Medicine 05/08/22 Essence Wren MD Consulting Physician Obstetrics and Gynecology 09/19/21
[2024-12-22] MEDS: TRANEXAMIC ACID 1,000MG/ISO100 1,000 MG/100 ML BAG 200 MG IVPB (07:00)
[2024-12-22] MEDS: SCOPOLAMINE 1 MG PATCH 1 PATCH TRANSDERM (07:00)
[2024-12-22] MEDS: LACTATED RINGERS 1,000 ML 30 ML IV CONT ×3 (07:00→15:32)
--- NOTE | 2024-12-22 07:00 | P.PNAN_ITS ---
Anes - Initial Pre Proc Eval Procedure: Operation Date: 12/22/24 07:30 Proposed Procedures p Tonya Clifford Abdominoplasty with Liposuction, with Reverse Abdominoplasty - Juan Pantoja MD Date/Time: 12/22/24 07:00 Surgeon: Juan Pantoja MD Pre Op Diagnosis: skin laxity Patient Data Age: 39 Gender: F Height: 1.68 m Weight: 95 kg Allergies Allergy/AdvReac Type Severity Reaction Status Date / Time codeine Allergy Intermediate hyper/awake Verified 12/16/24 08:29 latex Allergy Intermediate Rash Verified 12/16/24 08:29 vancomycin Allergy Intermediate Hives Verified 12/16/24 08:29 Home Medications ?Medication ?Instructions ?Recorded ?Confirmed ?Type albuterol 90 mcg/actuation aerosol 90 mcg inhalation PRN PRN 12/16/24 12/16/24 History inhaler wheezing/ sob ascorbic acid (vitamin C) 500 mg 500 mg PO DAILY 12/16/24 12/16/24 History tablet,extended release (C-500) ferrous sulfate 325 mg (65 mg 325 mg PO DAILY 12/16/24 12/16/24 History iron) tablet (Feosol) levothyroxine 137 mcg tablet 137 mcg PO HS 12/16/24 12/16/24 History lisdexamfetamine 50 mg capsule 50 mg PO DAILY 12/16/24 12/16/24 History (Vyvanse) sertraline 25 mg tablet 25 mg PO Q24H 12/16/24 12/16/24 History thiamine HCl (vitamin B1) 100 mg 100 mg PO DAILY 12/16/24 12/16/24 History tablet (Vitamin B-1) tirzepatide (weight loss) 15 15 mg subcut WEEKLY 12/16/24 12/16/24 History mg/0.5 mL subcutaneous pen injector (Zepbound) Laboratory Tests 12/22/24 06:22 Cotinine Negative Patient hx anesthesia problems: none Family hx anesthesia problems: none Results Review: All pre-operative results and documents have been reviewed as part of the pre- operative evaluation. [facility] Social History Social History Smoking status: Never smoker Alcohol intake: current Alcohol use details: 8 per year Substance use: never Living arrangements: with family Anes - Eval Final PreProcedure Day of Procedure 12/22/24 07:00 Patient weight: obese Heart: regular rate and rhythm Lungs: clear to auscultation Airway: Mallampati scale class II Neurological: alert and oriented Last oral intake: >/= 8 hours ASA classification: II Emergent: no Anesthetic plan: proceed Anesthesia type and monitoring: general ETT and standard monitoring Results Review: All pre-operative results and documents have been reviewed as part of the pre- operative evaluation. Informed Consent: The patient's anesthetic plan and its attendant risks and benefits were discussed with the patient/family/POA. Questions were solicited and answers provided to the satisfaction of the patient/family/POA.
--- NOTE | 2024-12-22 07:19 | WPDHPUPDATE1 ---
History and Physical Update Update Date/Time: 12/22/24 07:19 History and Physical has been reviewed, including an updated exam of the patient. There are NO changes in the patient's condition. Risks, benefits, and alternatives have been discussed and questions answered. Patient agrees to proceed with procedure.
[2024-12-22 07:43] LABS: BEDSIDEPREGUCG Negative (Negative)
[2024-12-22] MEDS: ceFAZolin 2 GM in SODIUM CHLORIDE 0.9% IV 50 ML 100 ML IVPB ×2 (08:20→12:09)
[2024-12-22] MEDS: BUPIVACAINE/EPINEPHRINE 0.5% 50 ML VIAL 60 ML INFILTRATE (08:20)
[2024-12-22] MEDS: LACTATED RINGERS IRRIG 1,000 ML, LIDOCAINE 1% LOCAL INJ 50 ML, EPINEPHrine HCL INJ 1 MG... INFILTRATE (08:20)
--- NOTE | 2024-12-22 10:42 | SUR.OPER ---
removed fentnyl x 2 ampules for this patient and given to Elzbieta Singh PASSENGER CAR CONDUCTOR
--- NOTE | 2024-12-22 14:52 | W.PM.PROC2 ---
Procedure Note - Detailed Date of Procedure 12/22/24 Pre-op Diagnosis skin laxity Post-op Diagnosis Same Procedure Performed Gareth abdominoplasty with reverse abdominoplasty and suction lipectomy Surgeon Juan Pantoja MD Anesthesia General Indications History significant weight loss, has elected to proceed as above. Has decline posterior body lift and bra roll excision (may do in the future at her expense). Findings Tissue removed: 6,037 grams Lipoaspirate: 2,000 cc Diastasis: 10 cm Description of Procedure She is here today for the above procedures. Previously and again today the risks, benefits, alternatives were discussed in extensive detail. I wanted her to be very realistic about the risks involved as well as expectations. We discussed aftercare and what to monitor for. I was very upfront about the risks of wound breakdown leading to loss of skin, open wounds, and need for additional procedures with permanent abdominal deformity. We discussed DVT/PE risks and management. Made sure answered all of their questions to their satisfaction today and consent was obtained. She was marked in the preoperative holding area with their verification. The patient was taken to the operating room. Anesthesia was provided by anesthesiology. A Husain catheter was started. Posterior Placed prone on the operating room table with care taken to protect from injury. Prepped and draped in a standard sterile fashion. A surgical time-out was taken. Stab incisions were made and tumescent solution was infiltrated. Once adequate time was allowed for hemostasis a 5mm basket and 4mm janeth cannula were utilized to complete suction lipectomy based on S.A.F.E. technique in multiple planes and passes. Suction lipectomy continued to result based on pre-operative planning, intra-operative observation, and rolling pinch test which were in full agreement. Anterior Patient was then placed supine with care taken to protect from injury. I placed the patient in a flexed position to verify the upper and lower markings would reach as well has side to side for [id number]. I then placed supine. A thorough abdominal examination was completed. Stab incisions were made and tumescent solution infiltrated. A 10 blade was used to make the upper incision as well as vertical excision. I continued dissection down to the level of fascia. No undermining of any of the flap was required. I then again flexed the bed to verify the upper skin flap would reach the lower markings without tension. Once verified I placed her supine once again and a 10 blade used to make the lower incision. I elevated up to level the umbilicus. The umbilicus had a very long stalk with poor appearance and decision was made to remove and reconstruct post-op. This was excised and no evidence of fascia defect. The tissue was removed. A 2 mm blunt cannula with 0.5% bupivacaine was injected deep to the fascia bilaterally. I plicated the diastasis recti using 0 PDO Stratafix barbed suture. This was in 2 separate layers using 2 separate sutures as well. I secured the lower scar to the fascia with 0 PDO Stratafix barbed suture. 2-0 Vicryl used to close the vertical as well as the lower incision. I did placed a 15 Eze drain prior to this suture. I temporarily stapled the vertical incision and lower incision in place. I then incised along the IMF and lateral breast as planned. The IMF was secured with 0 PDO Stratafix barbed suture. I elevated the reverse abdominoplasty along the fascia only elevated for planned resection. This was marked and I excised the excess. This was secured with 2-0 PDS and tacked with taylor temporarily. Stab incisions were made and tumescent solution was infiltrated. Once adequate time was allowed for hemostasis a 5mm basket and 4mm janeth cannula were utilized to complete suction lipectomy based on S.A.F.E. technique in multiple planes and passes. Suction lipectomy continued to result based on pre-operative planning, intra-operative observation, and rolling pinch test which were in full agreement. Antlers removed and I closed the incisions with 2-0 PDO stratafix, 3-0 Stratafix ,running subcuticular 4-0 Monocryl, and tissue glue. Fluffs and an abdominal binder were placed. The patient was transferred to the bed in a flexed position. Awoken and taken to the PACU without difficulty. All instrument and sponge counts were correct at the end of the case. Estimated Blood Loss 200 Drains Yes (15 Eze) Packing No Pathology None sent Complications No immediate complications Condition Stable Disposition PACU
[2024-12-22] MEDS: fentaNYL CITRATE INJ (*CRX) 100 MCG/2 ML VIAL 25 MCG IV PUSH ×8 (15:15→16:10)
[2024-12-22] MEDS: ONDANSETRON INJ 4 MG/2 ML VIAL IV PUSH (16:18)
[2024-12-22] MEDS: oxyCODONE HCL (*CRX) 5 MG TAB IR PO (16:55)
--- NOTE | 2024-12-22 18:20 | SUR.PHASEII ---
1821 - pt requests to stay. Dr. Pantoja called and aware.
[2024-12-22] MEDS: HYDROmorphone HCL INJ (*CRX) 1 MG/ML SYR IV PUSH (18:56)
--- NOTE | 2024-12-22 19:56 | ADMGEN ---
This patient, Jamila Nobles, was admitted to Medical Room 243-. Patient/family oriented to hospital policies and general routines including ID bracelet, bed and alarms, visiting hours, pain management, procedures, bathroom and other care routines, personal items, smoking policy, room service/diet, and visiting hours. Information on how to activate the Rapid Response Team has been discussed. Patient/Family are encouraged to report perceived risks to care and to ask questions if they do not understand what they are told or what they should do.
[2024-12-22] MEDS: oxyCODONE/ACETAMINOPHEN (*CRX) 5-325 MG TABLET PO (20:37)
[2024-12-22] MEDS: DOCUSATE SODIUM 100 MG CAPSULE PO (20:37)
[2024-12-22] MEDS: LEVOTHYROXINE SODIUM 25 MCG TABLET PO (20:38)
[2024-12-22] MEDS: LEVOTHYROXINE SODIUM 112 MCG TABLET PO (20:38)
[2024-12-22] MEDS: carisoprodoL (*CRX) 350 MG TABLET PO (23:07)
[2024-12-22] MEDS: KETOROLAC 10 MG TABLET PO (23:08)
[2024-12-23] VITALS: BP 97/52; PULSE 68; RESP 18; TEMP 36.2; O2SAT 100
[2024-12-23] MEDS: oxyCODONE/ACETAMINOPHEN (*CRX) 5-325 MG TABLET PO (03:13)
[2024-12-23 03:22] VITALS: BP 96/53; PULSE 75; RESP 18; TEMP 36.3; O2SAT 99
[2024-12-23] MEDS: KETOROLAC 10 MG TABLET PO (06:00)
[2024-12-23] MEDS: carisoprodoL (*CRX) 350 MG TABLET PO (06:01)
[2024-12-23 08:35] VITALS: RESP 18; O2SAT 99
[2024-12-23] MEDS: FERROUS SULFATE 325 MG TABLET DR PO (08:35)
[2024-12-23] MEDS: ASCORBIC ACID 500 MG TABLET PO (08:35)
[2024-12-23] MEDS: DOCUSATE SODIUM 100 MG CAPSULE PO (08:35)
[2024-12-23] MEDS: THIAMINE HCL 100 MG TABLET PO (08:36)
--- NOTE | 2024-12-23 09:07 | WPDANESPN ---
Anes - Prog Note Post-Op Date/Time: 12/23/24 09:07 Cardiovascular status: normal Respiratory status: normal Airway patency: baseline Mental status: baseline Post-Op hydration status: normal Vital Signs: Last Vital Signs Temp 36.3 C L 12/23/24 03:22 Pulse 75 12/23/24 03:22 Resp 18 12/23/24 03:22 BP 96/53 L 12/23/24 03:22 Pulse Ox 99 12/23/24 03:22 O2 Del Method Room Air 12/22/24 19:28 O2 Flow Rate 2 12/22/24 16:00 Pain Score (VAS): 0 I/O: Intake & Output 12/22/24 12/23/24 12/23/24 23:59 07:59 15:59 Intake Total 700 240 Output Total 25 Balance 700 -25 240 Post-procedural complaints: none Patient Feedback: Patient satisfied with anesthetic care.
--- NOTE | 2024-12-23 09:11 | P.PN_ITS ---
Progress Note: A&P Assessment and Plan (1) Skin laxity: Code(s): L57.4 - Cutis laxa senilis Status: Acute Assessment and Plan: Doing well after [id number] abdominoplasty with reverse abdominoplasty and suction lipectomy. Will discharge home. Today we had a lengthy discussion about the care. Activity limitations. What to monitor for. What is an emergency and when to dial 911 / proceed to the ER. This was a lengthy open ended conversation making sure they were well informed. Answered all their questions. They voiced a clear understanding. Will discharge home. Call with any questions or concerns in the meantime. (2) Localized adiposity: Code(s): E65 - Localized adiposity Status: Acute (3) Weight loss: Code(s): R63.4 - Abnormal weight loss Status: Acute Assessment and Plan: Encouraged good nutrition. Subjective Date/time seen: 12/23/24 09:11 Interval history: Doing well after [id number] abdominoplasty with reverse abdominoplasty and suction lipectomy. Ambulating. Pain controlled. No nausea / vomiting. No fevers / chills. No shortness of breast. No chest pain. No calf tenderness. Review of Systems Review of Systems: All systems reviewed & are unremarkable except as noted in HPI and below Exam Narrative: Alert & Oriented NOD Respiratory unlabored Abdomen is healing well. No signs of infection. No hematoma. No seroma. Good color and capillary refill. No calf tenderness. Negative Billie's Objective Data Vital Signs Vital Signs: Vital Signs - 24 hr 12/22/24 15:02 12/22/24 15:15 12/22/24 15:30 Temperature 36.7 C 36.7 C Pulse Rate 104 H 112 H 89 Respiratory Rate 17 18 18 Blood Pressure 115/77 111/80 111/70 Pulse Oximetry 99 98 98 Oxygen Delivery Simple Face Mask Simple Face Mask Simple Face Mask Oxygen Flow Rate 8 8 8 12/22/24 15:45 12/22/24 16:00 12/22/24 16:15 Temperature 36.7 C Pulse Rate 75 100 100 Respiratory Rate 12 12 12 Blood Pressure 110/80 129/81 119/68 Pulse Oximetry 100 100 97 Oxygen Delivery Nasal Cannula Nasal Cannula Room Air Oxygen Flow Rate 2 2 12/22/24 16:24 12/22/24 16:50 12/22/24 17:20 Temperature Pulse Rate 76 70 87 Respiratory Rate 20 20 20 Blood Pressure 104/75 106/55 L 106/64 Pulse Oximetry Oxygen Delivery Room Air Room Air Room Air Oxygen Flow Rate 12/22/24 17:50 12/22/24 18:20 12/22/24 18:50 Temperature Pulse Rate 80 80 73 Respiratory Rate 20 20 20 Blood Pressure 110/72 130/79 115/61 Pulse Oximetry Oxygen Delivery Room Air Room Air Room Air Oxygen Flow Rate 12/22/24 19:20 12/22/24 19:28 12/22/24 19:57 Temperature 36.2 C L Pulse Rate 58 L 72 75 Respiratory Rate 20 20 18 Blood Pressure 115/61 112/75 103/60 Pulse Oximetry 100 Oxygen Delivery Room Air Room Air Oxygen Flow Rate 12/22/24 21:00 12/23/24 00:00 12/23/24 03:22 Temperature 36.1 C L 36.2 C L 36.3 C L Pulse Rate 57 L 68 75 Respiratory Rate 16 18 18 Blood Pressure 112/60 97/52 L 96/53 L Pulse Oximetry 100 100 99 Oxygen Delivery Oxygen Flow Rate Intake/Output Intake/Output: Intake & Output 12/20/24 12/21/24 12/22/24 12/23/24 23:59 23:59 23:59 23:59 Intake Total 800 240 Output Total 30 25 Balance 770 215 Meds/Results Medications: Active Medications Generic Name Dose Route Start Last Admin Trade Name Freq PRN Reason Stop Dose Admin Ascorbic Acid 500 mg 12/23/24 09:00 12/23/24 08:35 Ascorbic Acid 500 Mg Tablet PO 500 mg DAILY JASEN Administration Carisoprodol 350 mg 12/23/24 00:00 12/23/24 06:01 Carisoprodol (*Crx) 350 Mg Tablet PO 350 mg Q6HR JASEN Administration Diazepam 5 mg 12/22/24 19:39 Diazepam (*Crx) 5 Mg Tablet PO TID PRN Anxiety Docusate Sodium 100 mg 12/22/24 21:00 12/23/24 08:35 Docusate Sodium 100 Mg Capsule PO 100 mg Q12HR JASEN Administration Enoxaparin Sodium 40 mg 12/23/24 09:00 12/23/24 08:37 Enoxaparin 40 Mg/0.4 Ml Syringe SUB-Q Not Given DAILY JASEN Fentanyl Citrate 25 mcg 12/22/24 06:58 12/22/24 16:10 Fentanyl Citrate Inj (*Crx) 100 Mcg/2 Ml Vial IV PUSH 25 mcg Q2M PRN Administration Pain Ferrous Sulfate 325 mg 12/23/24 09:00 12/23/24 08:35 Ferrous Sulfate [address] PO 325 mg DAILY JASEN Administration Ketorolac Tromethamine 10 mg 12/23/24 00:00 12/23/24 06:00 Ketorolac 10 Mg Tablet PO 12/24/24 18:01 10 mg Q6HR JASEN Administration Levothyroxine Sodium 112 mcg 12/22/24 21:00 12/22/24 20:38 Levothyroxine Sodium 112 Mcg Tablet PO 112 mcg HS JASEN Administration Levothyroxine Sodium 25 mcg 12/22/24 21:00 12/22/24 20:38 Levothyroxine Sodium 25 Mcg Tablet PO 25 mcg HS JASEN Administration Miscellaneous Information 1 each 12/23/24 00:01 Zepbound Is Nonform; Can Pt Use From Home? Also Which Day Does Pt Take It? XX 01/22/25 00:00 CLARIFY JASEN Miscellaneous Information 1 each 12/23/24 00:01 Clarify Albuterol Frequency XX 01/22/25 00:00 CLARIFY [facility] Miscellaneous Information 1 each 12/23/24 00:01 Vyvanse Is Nonform; Can Pt Use From Home? XX 01/22/25 00:00 CLARIFY JASEN Morphine Sulfate 2 mg 12/22/24 19:39 Morphine Sulfate (*Crx) 2 Mg/Ml Inj IV PUSH Q2H PRN Pain Non-Formulary Medication 90 mcg 12/22/24 19:39 Albuterol INHALATION PRN PRN wheezing/ sob Non-Formulary Medication 15 mg 12/29/24 09:00 Tirzepatide (Weight Loss) [Zepbound] SUB-Q 01/28/25 08:59 WEEKLY JASEN Non-Formulary Medication 50 mg 12/23/24 09:00 Lisdexamfetamine [Vyvanse] PO 01/22/25 08:59 DAILY [facility] Ondansetron HCl 4 mg 12/22/24 06:58 12/22/24 16:18 Ondansetron Inj 4 Mg/2 Ml Vial IV PUSH 4 mg ONCE PRN Administration Nausea Ondansetron HCl 4 mg 12/22/24 19:39 Ondansetron Inj 4 Mg/2 Ml Vial IV PUSH Q6H PRN Nausea Oxycodone HCl 5 mg 12/22/24 06:58 12/22/24 16:55 Oxycodone Hcl (*Crx) 5 Mg Tab Ir PO 5 mg ONCE PRN Administration Pain Oxycodone/Acetaminophen 1 - 2 tablet 12/22/24 19:39 12/23/24 03:13 Oxycodone/Acetaminophen (*Crx) 5-325 Mg Tablet PO 1 tablet Q6H PRN Administration Pain Rated 3-10 Sertraline HCl 25 mg 12/22/24 21:00 12/22/24 20:38 Sertraline Hcl 25 Mg Tablet PO Not Given Q24H JASEN Thiamine HCl 100 mg 12/23/24 09:00 12/23/24 08:36 Thiamine Hcl 100 Mg Tablet PO 100 mg DAILY JASEN Administration
--- NOTE | 2024-12-23 09:16 | P.DS_ITS ---
DS: Admitting Diagnosis Discharge Date 12/23/2024 Admitting Diagnosis 1. Skin laxity 2. Localized adiposity 3. History weight loss DS: Discharge Diagnosis Discharge Diagnosis (1) Skin laxity: Code(s): L57.4 - Cutis laxa senilis Status: Acute (2) Localized adiposity: Code(s): E65 - Localized adiposity Status: Acute (3) Weight loss: Code(s): R63.4 - Abnormal weight loss Status: Acute DS: Summary Hospital Course Hospital Course: She underwent [id number] abdominoplasty with reverse abdominoplasty and suction lipectomy. Postoperativly had some nausea / dizziness so stayed overnight. Today much improved. No complaints other than typical post- operative discomfort. Will discharge home. Time Spent with Patient Time attestation: Total time spent providing and/or coordinating discharge services: Exam Narrative: Alert & Oriented NOD Respiratory unlabored Abdomen is healing well. No signs of infection. No hematoma. No seroma. Good color and capillary refill. No calf tenderness. Negative Billie's Discharge Plan Discharge Patient Disposition: Home Discharge Instructions: POST OPERATIVE DISCHARGE INSTRUCTIONS JUAN PANTOJA M.D. [facility] [address] [place] [address] * No driving for 24 hours after anesthesia and while you are taking pain medication. * Take all prescribed medication as directed * Diet as tolerated. * No lifting or activity that raises blood pressure for 48 hours. * Regular walking / ambulation. * May shower 24 hours after surgery. Once you shower do not take pain medication before showering as the combination of medication and heat may cause you to feel dizzy or pass out. * No pools or tubs for 2 weeks. * Slowly stand up straight as tolerated. * No straining or lifting more than 20 pounds. * If no bowel movement within 24 hours may use laxative. * Call with any questions or concerns. * Dressing Care: Continue abdominal binder / foam 23 hours per day. If you have any questions or concerns, please call the office . If it is after hours you will be directed to the [facility]. Shortness of breath, chest pain, or other medical emergency dial 911 / proceed to the Emergency Room. Patient Language: Greek Stand Alone Forms: General Discharge Instructions Follow-up/Referrals: Juan Pantoja MD [Physician] - Other (Today 12/23/2024) Discharge Orders: Discharge Order (Routine); Ordered 12/23/24 Ordered By: Juan Pantoja Discharge Medications: Continued levothyroxine 137 mcg tablet 137 mcg PO HS lisdexamfetamine [Vyvanse] 50 mg capsule 50 mg PO DAILY sertraline 25 mg tablet 25 mg PO Q24H Zepbound 15 mg/0.5 mL pen injector 15 mg SUBCUT WEEKLY Patient Comments: had not taken for several months albuterol 90 mcg/actuation aerosol 90 mcg inhalation PRN PRN (Reason: wheezing/ sob) ferrous sulfate [Feosol] 325 mg (65 mg iron) tablet 325 mg PO DAILY ascorbic acid (vitamin C) [C-500] 500 mg tablet extended release 500 mg PO DAILY thiamine HCl (vitamin B1) [Vitamin B-1] 100 mg tablet 100 mg PO DAILY
== END 2024-12-23 10:10 | disposition home or self-care (01) ==
LOC: ANHSURGERY 15:08 → ANH2MED 19:42
PROVIDERS: Visit Provider Surgery Plastic and Reconstructive Surgery
PROC: (CPT 15830; principal; 2024-12-22 07:30)
DX: Z41.1 Encounter for cosmetic surgery (principal); L57.4 Cutis laxa senilis; E65 Localized adiposity
CPT/HCPCS: 15830; 15847; 15877; 80307; J0690; A9270; J0166; J1100; J1171; J1200; J2003; J2250; J2405; J2704; J3010; J7120